=== PATIENT | female | born 1945 | race Asian ===

== ENCOUNTER 2016-05-22 11:31 | Emergency (ER) | payer OTHER ==
[2016-05-22 11:38] VITALS: BMI 19.1
--- NOTE | 2016-05-22 11:54 | PDOC ---
History of Present Illness - General Chief Complaint: Injury Stated Complaint: FALL Time Seen by Provider: 05/22/16 11:41 Past History - Past Medical History Allergies/Adverse Reactions: Allergies Allergy/AdvReac Type Severity Reaction Status Date / Time No Known Allergies Allergy Verified 05/22/16 11:38 Home Medications: Ambulatory Orders Non-Formulary 1 tab PO HS 05/22/16 Oxymetazoline 0.05% Nasal Soln [Afrin -] 1 spray NS BID #1 spraybtl 05/22/16 Hypercholesterolemia: Yes - Surgical History Appendectomy: Yes - Psycho/Social/Smoking Cessation Hx Anxiety: No Suicidal Ideation: No Smoking History: Never smoked Have you smoked in the past 12 months: No Hx Alcohol Use: Yes (SOCIAL) Drug/Substance Use Hx: No Substance Use Type: Alcohol *Physical Exam - Vital Signs Last Vital Signs Temp Pulse Resp BP Pulse Ox 97.8 F 76 20 158/98 98 05/22/16 11:33 05/22/16 11:33 05/22/16 11:33 05/22/16 11:33 05/22/16 11:33 ED Treatment Course - LABORATORY CBC & Chemistry Diagram: 05/22/16 12:43 05/22/16 13:10 Medical Decision Making - Medical Decision Making 05/22/16 11:54 Went to get pt from waiting area and pt while trying to ambulate fell forward but I was able to catch her. Pt was placed int he wheelchair by a bystander and then when questioned how many steps she fell down, she states 12. pt with facial bruising and has complaints of multiple areas of discomfort. Pt will be placed in the Main ED and spoke to CELINA Cronin. *DC/Admit/Observation/Transfer Diagnosis at time of Disposition: Orbital floor (blow-out) closed fracture - Prescriptions Prescriptions: Oxymetazoline 0.05% Nasal Soln [Afrin -] 1 spray NS BID #1 spraybtl - Referrals Referrals: Jose Helm MD [Staff Physician] - Pierre Ch MD [Staff Physician] - Montrell Hinkle MD [Staff Physician] - - Patient Instructions Additional Instructions: You have a right sided orbital fracture. It is important that you do not blow your nose for the next 1-2 weeks. You were prescribed afrin. Use it twice a day (one squirt in each nostril). Dr. Jose Helm is an general operator you can call and Dr. Montrell Hinkle is an ENT doctor. Try and follow up with them this week. Dr. Ch is an orthopedist you can follow up with for your ankle. If you have vision changes, increased ankle pain or headache or cannot move your eye, return to the ED. - Post Discharge Activity Work/School Note: Back to Work
--- NOTE | 2016-05-22 12:38 | PDOC ---
History of Present Illness - General History Source: Patient - History of Present Illness Initial Comments: 05/22/16 13:18 Ms. Lainez is a 71 y/ female with a PMH of hyperlipidemia, and cataracts, presents to the ED today after falling down 12 steps on Monday05/20/16. Pt. states that [place] dark out. She states she missed a step and tumbled down approximately 12 stairs. She did not seek evaluation at that time because she needed to go to work. Pt. denies LOC and dizziness at time of fall. Pt. is now complaining of R sided facial pain, and L ankle pain. Denies chest pain, SOB, neck pain, back pain, N/V/D. Pt. took aspirin yesterday with some relief for her ankle pain. <Suyapa Pradhan - Last Filed: 05/22/16 18:57> <Brijesh Alonzo - Last Filed: 05/24/16 09:41> - General Chief Complaint: Injury Stated Complaint: FALL Time Seen by Provider: 05/22/16 11:41 Past History - Past Medical History Hypercholesterolemia: Yes - Surgical History Appendectomy: Yes - Psycho/Social/Smoking Cessation Hx Anxiety: No Suicidal Ideation: No Smoking History: Never smoked Have you smoked in the past 12 months: No Hx Alcohol Use: Yes (SOCIAL) Drug/Substance Use Hx: No Substance Use Type: Alcohol <Suyapa Pradhan - Last Filed: 05/22/16 18:57> <Brijesh Alonzo - Last Filed: 05/24/16 09:41> - Past Medical History Allergies/Adverse Reactions: Allergies Allergy/AdvReac Type Severity Reaction Status Date / Time No Known Allergies Allergy Verified 05/22/16 11:38 Home Medications: Ambulatory Orders Non-Formulary 1 tab PO HS 05/22/16 Oxymetazoline 0.05% Nasal Soln [Afrin -] 1 spray NS BID #1 spraybtl 05/22/16 *Physical Exam - Vital Signs Last Vital Signs Temp Pulse Resp BP Pulse Ox 97.8 F 76 20 158/98 98 05/22/16 11:33 05/22/16 11:33 05/22/16 11:33 05/22/16 11:33 05/22/16 11:33 - Physical Exam Comments: 05/22/16 13:23 GENERAL: The patient is awake, alert, and fully oriented, in no acute distress. HEAD/Face: Obvious bruising of the R face. (+) raccoon sign over R eye. Ecchimosis of her R jaw noted. No obvious trauma stepoffs or crepitus felt on exam of skull. ENT: Pupils equal, round and reactive to light, extraocular movements intact, sclera anicteric, sub-conjunctival hemorrhage of the right eye . Neck supple. LUNGS: Clear to auscultation bilaterally. Normal excursion. No respiratory distress or use of accessory muscles. CV: RRR, S1/S2, no MRG. Cap refill < 2 sec. ABDOMEN: Soft, non-distended, non-tender. EXTREMITIES: L ankle grossly swollen. Pain on palpation over the 5th metatarsal. Palpated up the LLE with no pain on palpation of the posterior calf. PMS of the L foot intact. Range of motion limited on flexion and extension. Normal range of motion, no edema. NEUROLOGICAL: Normal speech, normal gait. CN II-XII grossly intact. PSYCH: Normal mood, normal affect. SKIN: Warm, dry, normal turgor, no rashes or lesions noted. <Suyapa Pradhan - Last Filed: 05/22/16 18:57> - Vital Signs Last Vital Signs Temp Pulse Resp BP Pulse Ox 97.9 F 79 18 132/86 100 05/22/16 16:01 05/22/16 16:01 05/22/16 16:01 05/22/16 16:01 05/22/16 16:01 <Brijesh Alonzo - Last Filed: 05/24/16 09:41> Procedures - Splinting Splint Location: Left: Ankle Pre-Proc Neuro Vasc Exam: normal Hand-Made Type: orthoglass Splint Type: Yes: Posterior Post-Proc Neuro Vasc Exam: normal Aneul Bandage: 4" Sling: No Complications: No Post splint xray: No <Brijesh Alonzo - Last Filed: 05/24/16 09:41> ED Treatment Course - LABORATORY CBC & Chemistry Diagram: 05/22/16 12:43 05/22/16 13:10 <Suyapa Pradhan - Last Filed: 05/22/16 18:57> - LABORATORY CBC & Chemistry Diagram: 05/22/16 12:43 05/22/16 13:10 - ADDITIONAL ORDERS Additional order review: 05/22/16 12:43 RBC Cancelled MCV Cancelled MCHC Cancelled RDW Cancelled MPV Cancelled Neutrophils % Cancelled Lymphocytes % Cancelled Monocytes % Cancelled Eosinophils % Cancelled Basophils % Cancelled - Medications Given in the ED: ED Medications Discontinued Medications Generic Name Dose Route Start Last Admin Trade Name Cherry PRN Reason Stop Dose Admin Acetaminophen 650 mg 05/22/16 12:42 05/22/16 13:01 Tylenol - PO 05/22/16 12:43 650 mg ONCE ONE Administration <Brijesh Alonzo - Last Filed: 05/24/16 09:41> Medical Decision Making - Medical Decision Making 05/22/16 13:31 Ms. Lainez is a 71 y/o female with PMH of hyperlipidemia, cataracts, presents to the ED s/p mechanical fall 2 days ago. Pt. is complaining of facial pain and L ankle/foot pain at this time. Will order imaging to evaluate injuries 1. CT Scan of head and facial bones to r/o bleed and fractures 2. Xray L foot and ankle to r/o fractures. 3. Tylenol given for pain management Will re-evaluate. 05/22/16 14:36 The language line was contacted to give pt. her results of her imaging. Spoke with sign language interpreter Fahad,#[id number]. CT scans show a R orbital floor fracture. Explained to patient the type of fracture, need to avoid blowing her nose, need to follow up with ophthalmology, ENT, and that she will be prescribed Afrin for nasal decongestion. Also explained was the need to return to the ED if she loses vision, or cannot move her eye up or down. Also explained that she has a L foot sprain. We will be splinting it today for her comfort. Explained the need to rest ice compress and elevate the injury and to keep off of the foot. Applied a posterior U splint for comfort given the amount of edema. PMS intact prior to and after splint placement. CT head showed a meningioma, pt. is aware of this condition and she states she follows up with neurology once a year to monitor the size of the defect. 05/22/16 18:57 <Suyapa Pradhan - Last Filed: 05/22/16 18:57> *DC/Admit/Observation/Transfer - Discharge Dispostion Admit: No <Suyapa Pradhan - Last Filed: 05/22/16 18:57> <Brijesh Alonzo - Last Filed: 05/24/16 09:41> Diagnosis at time of Disposition: Orbital floor (blow-out) closed fracture - Discharge Dispostion Disposition: HOME - Prescriptions Prescriptions: Oxymetazoline 0.05% Nasal Soln [Afrin -] 1 spray NS BID #1 spraybtl - Referrals Referrals: Jose Helm MD [Staff Physician] - Pierre Ch MD [Staff Physician] - Montrell Hinkle MD [Staff Physician] - - Patient Instructions Additional Instructions: You have a right sided orbital fracture. It is important that you do not blow your nose for the next 1-2 weeks. You were prescribed afrin. Use it twice a day (one squirt in each nostril). Dr. Jose Helm is an swine genetics researcher you can call and Dr. Montrell Hinkle is an ENT doctor. Try and follow up with them this week. Dr. Ch is an orthopedist you can follow up with for your ankle. If you have vision changes, increased ankle pain or headache or cannot move your eye, return to the ED. - Post Discharge Activity Work/School Note: Back to Work
[2016-05-22] MEDS ORDERED: ACETAMINOPHEN 325 MG TABLET (FP) PO ONE (12:42)
[2016-05-22] MEDS ORDERED: ACETAMINOPHEN 325 MG TABLET (FP) ONE (12:59)
--- NOTE | 2016-05-22 13:29 | PDOC ---
*Physical Exam - Vital Signs Last Vital Signs Temp Pulse Resp BP Pulse Ox 97.8 F 76 20 158/98 98 05/22/16 11:33 05/22/16 11:33 05/22/16 11:33 05/22/16 11:33 05/22/16 11:33 ED Treatment Course - LABORATORY CBC & Chemistry Diagram: 05/22/16 12:43 05/22/16 13:10 - ADDITIONAL ORDERS Additional order review: 05/22/16 12:43 RBC Cancelled MCV Cancelled MCHC Cancelled RDW Cancelled MPV Cancelled Neutrophils % Cancelled Lymphocytes % Cancelled Monocytes % Cancelled Eosinophils % Cancelled Basophils % Cancelled - Medications Given in the ED: ED Medications Discontinued Medications Generic Name Dose Route Start Last Admin Trade Name Cherry PRN Reason Stop Dose Admin Acetaminophen 650 mg 05/22/16 12:42 05/22/16 13:01 Tylenol - PO 05/22/16 12:43 650 mg ONCE ONE Administration Medical Decision Making - Medical Decision Making 05/22/16 13:25 Pt seen by the Advanced Practice Provider under my direct supervision Pt interviewed and examined Ancillary studies reviewed I agree with plan as outlined by the Advanced Practice Provider ROYAL Pena Vital Signs Temp Pulse Resp BP Pulse Ox 97.8 F 76 20 158/98 98 05/22/16 11:33 05/22/16 11:33 05/22/16 11:33 05/22/16 11:33 05/22/16 11:33 71-year-old female with past medical history hypertension on baby aspirin presents with mechanical fall 3 days ago. Patient had tripped and fell down 12 steps and reported twisting her left ankle and hitting her face. Denies loss of consciousness. Denies headache. Patient was ambulatory but with pain in her left ankle. Since then, the patient was noted to have right raccoon eye, ecchymosis at the right lower jaw and pain of her left ankle left foot. She denies any numbness or weakness. She is neurovascularly intact. She came into the ED for further evaluation. GENERAL: Patient is awake, alert and in no acute distress. Speech is clear and appropriate. HEAD: Atraumatic and nontender. HEENT: Pupils are equal round and reactive to light, extraocular movements are intact. +Right sided subconjunctival hemorrhage. The tympanic membranes are clear, no hemotympanum. No facial deformity. No facial bone tenderness or step-off. No nasal septal hematoma. The oropharynx is clear. +Right sided raccoon eye. R mandibular ~3x3 cm ecchymosis. NECK: The trachea is midline, there is no stridor. There is no midline cervical spine tenderness, full range of motion of neck. CHEST: Non-tender, no ecchymosis or abrasions. Equal chest wall expansion bilaterally. No flail segments. Lungs are clear to auscultation bilaterally. CARDIOVASCULAR: S1-S2, regular rate and rhythm. No murmurs or rubs. ABDOMEN: Soft, nontender, nondistended. Bowel sounds are normoactive. There is no abdominal or flank ecchymosis. BACK/PELVIS: There is no midline thoracic or lumbosacral spine tenderness or step-off. Pelvis is stable and nontender. EXTREMITIES: Left lower extremity 2+ DP pulse. Sensation intact throghout. TTP medial and lateral malleolus. No tenderness appreciated in the proximal or mid tib/fib. Swelling and edema appreciated. TTP left 5th metatarsal. 2+ distal pulses throughout. NEURO: Alert and oriented x3. Cranial nerves II through XII are intact. 5 out of 5 motor strength x4 extremities. No gross sensory deficits. Finger-nose- finger is intact. No pronator drift. Gait is stable. SKIN: No abrasions, hematomas, lacerations. PSYCH: Affect is appropriate We'll need to obtain a left ankle and left foot x-ray. We'll obtain a CAT scan of the head and facial bones. Patient is cleared from a NEXUS perspective for cervical spine. Imaging and reassess. 05/22/16 15:14 CAT scan the head and facial bone. Incidental meningioma noted. This was discussed with a phone bindery leadperson and the patient reports that she has a known history of this and is following up with a neurologist. Ankle and foot x-ray reviewed with no acute findings. However, given the edema and the pain, I suspect that she is high degree sprain. Patient was placed in a posterior U- splint and made nonweightbearing. We will see if she can ambulate with crutches without difficulty. If so, we'll discharge with orthopedics follow-up. Patient is noted to have an orbital floor fracture of the right side. Give Afrin and nasal decongestion. We'll have her follow-up with ophthalmology and ENT. *DC/Admit/Observation/Transfer Diagnosis at time of Disposition: Orbital floor (blow-out) closed fracture - Discharge Dispostion Disposition: HOME - Prescriptions Prescriptions: Oxymetazoline 0.05% Nasal Soln [Afrin -] 1 spray NS BID #1 spraybtl - Referrals Referrals: Jose Helm MD [Staff Physician] - Pierre Ch MD [Staff Physician] - Montrell Hinkle MD [Staff Physician] - - Patient Instructions Additional Instructions: You have a right sided orbital fracture. It is important that you do not blow your nose for the next 1-2 weeks. You were prescribed afrin. Use it twice a day (one squirt in each nostril). Dr. Jose Helm is an webmethods architect you can call and Dr. Montrell Hinkle is an ENT doctor. Try and follow up with them this week. Dr. Ch is an orthopedist you can follow up with for your ankle. If you have vision changes, increased ankle pain or headache or cannot move your eye, return to the ED. - Post Discharge Activity Work/School Note: Back to Work
[2016-05-22 14:09] LABS: ALBUMIN 3.5 g/dl (3.4-5.0); ALK PHOS 48 U/L (45-117); ANION GAP 11 (8-16); BILIRUBIN,TOTAL 0.7 mg/dL (0.2-1.0); CALCIUM 8.2 mg/dL (8.5-10.1); CO2 24 mmol/L (21-32); CREATININE 0.6 mg/dL (0.55-1.02); GLUCOSE,RANDOM 87 mg/dL (74-106); SGOT/AST 28 U/L (15-37); SGPT/ALT 17 U/L (12-78); TOT PROT 6.4 g/dl (6.4-8.2)
[2016-05-22 16:03] VITALS: BP 132/86; PULSE 79; TEMP 97.9
== END 2016-05-22 16:03 | disposition home or self-care (01) ==
LOC: JERFT 11:31 → JER 11:31
PROC: 2W3MX1Z Immobilization of Left Lower Extremity using Splint (ICD-10-PCS; principal; 2016-05-22)
DX: S02.31XA Fracture of orbital floor, right side, initial encounter for closed fracture (principal); S93.402A Sprain of unspecified ligament of left ankle, initial encounter; W10.8XXA Fall (on) (from) other stairs and steps, initial encounter; Y93.89 Activity, other specified; Y92.522 Railway station as the place of occurrence of the external cause; Y99.8 Other external cause status; I10 Essential (primary) hypertension; E78.00 Pure hypercholesterolemia, unspecified
CPT/HCPCS: 29515; 36415; 70450-TC; 70486-TC; 73110-TC-RT; 73130-TC-RT; 73610-TC-LT; 73630-TC-LT; 80053; 99284-25

== ENCOUNTER 2016-08-11 11:37 | Emergency (ER) | payer OTHER ==
[2016-08-11 11:59] VITALS: BP 158/95; PULSE 72; TEMP 98.1; BMI 18.7
--- NOTE | 2016-08-11 13:43 | PDOC ---
History of Present Illness - General Chief Complaint: Bite Stated Complaint: TICK BITE Time Seen by Provider: 08/11/16 13:33 History Source: Patient Exam Limitations: No Limitations - History of Present Illness Initial Comments: 08/11/16 13:40 71 yr female with c/o finding a tick crawling on her buttock. the tick is alive and did not bite the pt. Pt brought tick with her. 08/11/16 16:02 Past History - Past Medical History Allergies/Adverse Reactions: Allergies Allergy/AdvReac Type Severity Reaction Status Date / Time No Known Allergies Allergy Verified 08/11/16 11:56 Home Medications: Ambulatory Orders Non-Formulary 1 tab PO HS 05/22/16 Oxymetazoline 0.05% Nasal Soln [Afrin -] 1 spray NS BID #1 spraybtl 05/22/16 Hypercholesterolemia: Yes - Surgical History Appendectomy: Yes - Psycho/Social/Smoking Cessation Hx Anxiety: No Suicidal Ideation: No Smoking History: Never smoked Have you smoked in the past 12 months: No Hx Alcohol Use: Yes (SOCIAL) Drug/Substance Use Hx: No Substance Use Type: Alcohol Review of Systems - Review of Systems Able to Perform ROS?: Yes Is the patient limited Wallisian proficient: No Constitutional: No: Symptoms Reported HEENTM: No: Symptoms Reported Respiratory: No: Symptoms reported Cardiac (ROS): No: Symptoms Reported ABD/GI: No: Symptoms Reported : No: Symptoms Reported Musculoskeletal: No: Symptoms Reported Integumentary: No: Symptoms Reported Neurological: No: Symptoms reported *Physical Exam - Vital Signs Last Vital Signs Temp Pulse Resp BP Pulse Ox 98.1 F 72 17 158/95 98 08/11/16 11:56 08/11/16 11:56 08/11/16 11:56 08/11/16 11:56 08/11/16 11:56 - Physical Exam General Appearance: Yes: Nourished, Appropriately Dressed HEENT: positive: EOMI, REE Neck: positive: Supple. negative: Tender Respiratory/Chest: positive: Lungs Clear, Normal Breath Sounds Cardiovascular: positive: Regular Rhythm, Regular Rate Gastrointestinal/Abdominal: positive: Normal Bowel Sounds, Soft Musculoskeletal: positive: Normal Inspection Extremity: positive: Normal Capillary Refill, Normal Inspection, Normal Range of Motion Integumentary: positive: Normal Color, Dry, Warm Neurologic: positive: Fully Oriented, Alert, Normal Mood/Affect, Normal Response , Motor Strength 5 Medical Decision Making - Medical Decision Making 08/11/16 16:02 cc: found a tick on her backside tick was not stuck in the skin, tick did not bite the pt tick is alive pt brought in in a plastic bag. pt has no other complaints *DC/Admit/Observation/Transfer Diagnosis at time of Disposition: Worried well - Discharge Dispostion Disposition: HOME Condition at time of disposition: Good - Patient Instructions Additional Instructions: there is no treatment that is indicated today always make sure you wear long sleeves and long pants use DEET bug repellant
== END 2016-08-11 13:45 | disposition home or self-care (01) ==
LOC: JERFT 11:37
DX: Z71.1 Person with feared health complaint in whom no diagnosis is made (principal); E78.00 Pure hypercholesterolemia, unspecified
CPT/HCPCS: 99281-25

== ENCOUNTER 2019-03-09 14:43 | Inpatient (IN) | payer OTHER ==
--- NOTE | 2019-03-09 15:15 | PDOC ---
History of Present Illness - General Chief Complaint: Pain Stated Complaint: ABD PAIN/COUGHING/VOMITING Time Seen by Provider: 03/09/19 15:14 - History of Present Illness Initial Comments: 03/09/19 15:14 Ms. Lainez is a 73 yo female w/ no pertinent pmh who presents for evaluation of 1 day history of RLQ abdominal pain w/ associated nausea and vomiting (4x, bilious, non-bloody). Patient reports she had an appendectomy 20 years ago however denies any other symptoms. Denies fever, endorses non-specific chills as well. The patient denies chest pain, shortness of breath, headache and dizziness. Denies fever, diarrhea and constipation. Denies dysuria, frequency, urgency and hematuria. Past History - Past Medical History Allergies/Adverse Reactions: Allergies Allergy/AdvReac Type Severity Reaction Status Date / Time No Known Allergies Allergy Verified 03/09/19 14:50 Home Medications: Ambulatory Orders Non-Formulary 1 tab PO HS 05/22/16 Oxymetazoline 0.05% Nasal Soln [Afrin -] 1 spray NS BID #1 spraybtl 05/22/16 COPD: No Hypercholesterolemia: Yes - Surgical History Appendectomy: Yes - Psycho Social/Smoking Cessation Hx Smoking History: Never smoked Have you smoked in the past 12 months: No Hx Alcohol Use: Yes (SOCIAL) Drug/Substance Use Hx: No Substance Use Type: Alcohol Review of Systems - Review of Systems Comments:: 03/09/19 15:15 GENERAL/CONSTITUTIONAL: +Chills as described. No fever. No weakness. HEAD, EYES, EARS, NOSE AND THROAT: No change in vision. No ear pain or discharge. No sore throat. CARDIOVASCULAR: No chest pain or shortness of breath RESPIRATORY: No cough, wheezing, or hemoptysis. GASTROINTESTINAL: +4x N/V as described w/ reported RLQ abdominal pain. No diarrhea or constipation. GENITOURINARY: No dysuria, frequency, or change in urination. MUSCULOSKELETAL: No joint or muscle swelling or pain. No neck or back pain. SKIN: No rash NEUROLOGIC: No headache, vertigo, loss of consciousness, or change in strength/ sensation. ENDOCRINE: No increased thirst. No abnormal weight change HEMATOLOGIC/LYMPHATIC: No anemia, easy bleeding, or history of blood clots. ALLERGIC/IMMUNOLOGIC: No hives or skin allergy. *Physical Exam - Vital Signs Last Vital Signs Temp Pulse Resp BP Pulse Ox 98 F 92 H 18 91/54 L 100 03/09/19 14:47 03/09/19 14:47 03/09/19 14:47 03/09/19 14:47 03/09/19 14:47 - Physical Exam Comments: 03/09/19 15:15 GENERAL: Awake, alert, and fully oriented, in no acute distress HEAD: No signs of trauma, normocephalic, atraumatic EYES: PERRLA, EOMI, sclera anicteric, conjunctiva clear ENT: Auricles normal inspection, hearing grossly normal, nares patent, oropharynx clear without exudates. Moist mucosa NECK: Normal ROM, supple, no lymphadenopathy, JVD, or masses LUNGS: No distress, speaks full sentences, clear to auscultation bilaterally HEART: Regular rate and rhythm, normal S1 and S2, no murmurs, rubs or gallops, peripheral pulses normal and equal bilaterally. ABDOMEN: +RUQ TTP. Soft, normoactive bowel sounds. No guarding, no rebound. No masses EXTREMITIES: Normal inspection, Normal range of motion, no edema. No clubbing or cyanosis. NEUROLOGICAL: Cranial nerves II through XII grossly intact. Normal speech, normal gait, no focal sensorimotor deficits SKIN: Warm, Dry, normal turgor, no rashes or lesions noted. ED Treatment Course - LABORATORY CBC & Chemistry Diagram: 03/09/19 16:25 03/09/19 16:25 Medical Decision Making - Medical Decision Making 03/09/19 15:40 Ms. Lainez is a 73 yo female w/ no significant pmh who presents for evaluation of symptoms concerning for cholecystitis vs. SBO vs. other infection. Patient will be evaluated w/ imaging and labs for further dispo. 03/09/19 16:16 Upon repeat evaluation patient noted to be less interactive. Patient evaluated with bedside US and found to have concern for cholelithiasis at GB neck w/out acute infection. Aorta narrow w/out signs of aneurysm. Septic order set started and 18G placed in R arm. Patient receiving sepsis fluids. 03/09/19 17:58 Patient BP improved with sepsis fluids. Empiric antibiotics ordered given patients change of status. Abdominal US ordered for further evaluation. 03/09/19 18:26 No specific findings noted on US. CTAP ordered for further evaluation. Patient creatinine noted to be elevated as below however given urgency decision made to use IV contrast for increased visibility. Patient has also received several liters of fluid for kidney protection. EKG normal sinus. 03/09/19 18:47 Patient signed out to Dr. Mcrae for further evaluation. Discharge - Discharge Information Problems reviewed: Yes Clinical Impression/Diagnosis: Abdominal pain Qualifiers: Abdominal location: right upper quadrant Qualified Code(s): R10.11 - Right upper quadrant pain Sepsis Qualifiers: Sepsis type: sepsis due to unspecified organism Sepsis acute organ dysfunction status: unspecified Qualified Code(s): A41.9 - Sepsis, unspecified organism - Admission Yes - Follow up/Referral - Patient Discharge Instructions - Post Discharge Activity
[2019-03-09] MEDS ORDERED: SODIUM CHLORIDE 1,701 ML IV ONE (16:06)
[2019-03-09 16:30] LABS: VENOUS PC02 43.2 mmHg (38-52); VENOUS PH 7.38 (7.31-7.41)
[2019-03-09 16:32] LABS: VENOUS PO2 < 49 mmHg (28-48)
[2019-03-09 16:34] LABS: BASO % 0.1 % (0-2.0); HEMATOCRIT 38.3 % (32.4-45.2); LYMPH % 2.3 % (8-40); MCH 32.7 pg (25.7-33.7); MEAN CELL VOLUME 96.2 fl (80-96); MEAN PLT VOLUME 7.8 fl (7.5-11.1); MONO % 1.1 % (3.8-10.2); NEUT % 96.5 % (42.8-82.8); PLATELET COUNT 147 K/MM3 (134-434); RBC 3.98 M/mm3 (3.60-5.2); RDW 12.4 % (11.6-15.6); WHITE BLOOD COUNT 18.2 K/mm3 (4.0-10.0)
[2019-03-09 16:46] LABS: INR 1.3 (0.83-1.09); PROTHROMBIN TIME (PATIENT) 15.4 SEC (9.7-13.0)
[2019-03-09 16:49] LABS: ACTIVATED PTT 31.7 SECONDS (25.2-36.5)
[2019-03-09] MEDS ORDERED: PIPERACILLIN/TAZOB 4.5 GM 4.5 GM in DEXTROSE 5%-WATER - 100 ML IVPB ONE (16:51)
[2019-03-09] MEDS ORDERED: VANCOMYCIN 1,000 MG in DEXTROSE 5%-WATER - 250 ML IVPB ONE (16:51)
--- NOTE | 2019-03-09 16:53 | PDOC ---
Documentation entered by Siri Nazario SCRIBE, acting as scribe for Candace Lima MD. Candace Lima MD: This documentation has been prepared by the Mansi amado Adrianna, SCRIBE, under my direction and personally reviewed by me in its entirety. I confirm that the documentation accurately reflects all work, treatment, procedures, and medical decision making performed by me. Attending Attestation - Resident Resident Name: JessiDiaz - ED Attending Attestation I have performed the following: I have examined & evaluated the patient, The case was reviewed & discussed with the resident, I agree w/resident's findings & plan, Exceptions are as noted - HPI HPI: The patient is a 73 year old female, with a significant PMH of HLD and cataracts (not on any daily meds as she has not seen a PMD in 3 years), who presents to the ED for evaluation of abdominal pain for one day. Patient endorses sharp, 8/10, RUQ abdominal pain a/w nausea and 4 episodes of non- bilious, non-bloody vomit. Pt reports similar pain over the last few weeks but much less severe in nature. She has not noticed pain is worse post-prandially. Patient had an appendectomy in the past as well as an ovarian cyst removal on the right. No other surgeries. Denies associated f/c, dysuria, hematuria, frequency, urgency, diarrhea, or constipation. She reports associated chills, but otherwise denies any acute complaints. Denies headache, dizziness, focal weakness/numbness, chest pain, SOB, LE edema. Allergies: NKA, NKDA Surgical History: Appendectomy Social History: Social EtOH use. Denies tobacco or illicit drug use - Physicial Exam PE: GENERAL: Awake, lethargic but arousable and fully oriented, in no acute distress HEAD: No signs of trauma EYES: PERRLA, EOMI, sclera anicteric, conjunctiva clear ENT: Auricles normal inspection, hearing grossly normal, nares patent, oropharynx clear without exudates. Moist mucosa NECK: Normal ROM, supple, no lymphadenopathy, JVD, or masses LUNGS: Breath sounds equal, clear to auscultation bilaterally. No wheezes, and no crackles HEART: Regular rate and rhythm, normal S1 and S2, no murmurs, rubs or gallops ABDOMEN: Soft, +hidalgo's sign, normoactive bowel sounds. No guarding, no rebound. No masses. No CVAT. EXTREMITIES: Normal range of motion, no edema. No cords, erythema, or tenderness. WWP BACK: No midline spinal tenderness in cervical/thoracic/lumbar region NEUROLOGICAL: Normal speech, cranial nerves intact, 5/5 strength in all 4 extremities, normal sensation to light touch in all 4 extremities, normal cerebellar exam, normal gait, normal tone SKIN: Warm, Dry, normal turgor, no rashes or lesions noted. - Medical Decision Making 03/09/19 15:56 73-year-old female denies significant past medical history, PSH of appendicitis and R oopherectomy presents to the emergency department with 1 day of right upper quadrant pain associated with multiple episodes of nonbloody nonbilious emesis. Initial vitals remarkable for borderline hypotension, otherwise within normal limits. Exam remarkable for positive Hidalgo sign, and mild CVA tenderness. Differential includes cholecystitis versus pyelonephritis versus renal colic vs pancreatitis. Plan: -labs -US -IVF 30 cc/kg -pain control -reassess 03/09/19 17:00 On reevaluation, patient now is having rigors, tachycardic to 120s, and has a rectal temp of 100.6. Thus far, labs with leukocytosis of 18. Patient has been covered empirically with Zosyn and vancomycin. She has been given IV Tylenol for fever. Her 30 cc/kg fluid bolus is ongoing at this time. Remaining labs are pending. Impression is presumed sepsis, broad infectious w/ u in progress. Case has been signed out to Dr. Sanders for further management.
[2019-03-09] MEDS ORDERED: PIPERACILLIN/TAZOB 4.5 GM 4.5 GM/100 ML BAG IVPB ONE (16:55)
[2019-03-09] MEDS ORDERED: ACETAMINOPHEN INJECTION 100 ML IVPB ONE (16:55)
[2019-03-09] MEDS ORDERED: VANCOMYCIN 1 GRAM (PRE-DOCKED) 1,000 MG/250 ML BAG IVPB ONE (16:55)
[2019-03-09] MEDS ORDERED: ACETAMINOPHEN 1000 MG/100 ML VIAL (NON FORMULARY) IVPB ONE (16:59)
[2019-03-09 17:02] LABS: ALBUMIN 3.4 g/dl (3.4-5.0); BILIRUBIN,TOTAL 0.7 mg/dL (0.2-1); BLOOD UREA NITROGEN 35.9 mg/dL (7-18); CALCIUM 8.1 mg/dL (8.5-10.1); CREATININE 1.6 mg/dL (0.55-1.3); POTASSIUM 3.2 mmol/L (3.5-5.1); TOT PROT 6.5 g/dl (6.4-8.2)
[2019-03-09 17:51] LABS: MACROCYTOSIS 1+; PLATELET ESTIMATE DECREASED
[2019-03-09] MEDS ORDERED: SODIUM CHLORIDE 1,000 ML IV STA (18:32)
[2019-03-09 18:50] LABS: EPI CELLS 1.7 /HPF (0-5/HPF); HYALINE CASTS 9 /lpf (0-8); URINE APPEARANCE CLOUDY; URINE BILIRUBIN NEGATIVE (NEGATIVE); URINE COLOR YELLOW; URINE GLUCOSE (UA) NEGATIVE (NEGATIVE); URINE KETONE TRACE (NEGATIVE); URINE LEUK ESTERASE TRACE (NEGATIVE); URINE NITRITE NEGATIVE (NEGATIVE); URINE PROTEIN 1+ (NEGATIVE); URINE RBC 3 /hpf (0-4); URINE UROBILINOGEN 0.2 mg/dL (0.2-1.0); URINE WBC 5 /hpf (0-5)
[2019-03-09 19:04] LABS: URINE BACTERIA POSITIVE /hpf (NEGATIVE)
[2019-03-09] MEDS ORDERED: SODIUM CHLORIDE 0.9% 500 ML INFUS.BAG IV ONE (19:50)
--- NOTE | 2019-03-09 19:52 | PDOC ---
*Physical Exam - Vital Signs Last Vital Signs Temp Pulse Resp BP Pulse Ox 98.7 F 97 H 18 121/67 94 L 03/09/19 18:00 03/09/19 18:00 03/09/19 18:00 03/09/19 18:00 03/09/19 18:00 ED Treatment Course - LABORATORY CBC & Chemistry Diagram: 03/09/19 16:25 03/09/19 16:25 - ADDITIONAL ORDERS Additional order review: Laboratory Results 03/09/19 03/09/19 03/09/19 18:07 16:25 16:25 PT with INR INR PTT (Actin FS) VBG pH 7.38 POC VBG pCO2 43.2 POC VBG pO2 < 49 H VBG HCO3 24.9 VBG O2 Sat (Leonid) 34.1 L VBG Base Excess 0.2 Sodium Potassium Chloride Carbon Dioxide Anion Gap BUN Creatinine Est GFR (CKD-EPI)AfAm Est GFR (CKD-EPI)NonAf Random Glucose Lactic Acid 4.3 H* Calcium Magnesium Total Bilirubin AST ALT Alkaline Phosphatase Troponin I Total Protein Albumin Lipase Urine Color Urine Appearance Urine pH Ur Specific [place] Urine Protein Urine Glucose (UA) Urine Ketones Urine Blood Urine Nitrite Urine Bilirubin Urine Urobilinogen Ur Leukocyte Esterase Urine WBC (Auto) Urine RBC (Auto) Urine Casts (Auto) U Epithel Cells (Auto) Urine Bacteria (Auto) Blood Type A POSITIVE Antibody Screen Positive 03/09/19 03/09/19 03/09/19 16:25 16:25 16:25 PT with INR INR PTT (Actin FS) VBG pH POC VBG pCO2 POC VBG pO2 VBG HCO3 VBG O2 Sat (Leonid) VBG Base Excess Sodium 137 Potassium 3.2 L Chloride 100 Carbon Dioxide 26 Anion Gap 11 BUN 35.9 H Creatinine 1.6 H Est GFR (CKD-EPI)AfAm 36.41 Est GFR (CKD-EPI)NonAf 31.42 Random Glucose 117 H Lactic Acid Calcium 8.1 L Magnesium 1.8 Total Bilirubin 0.7 AST 26 ALT 16 Alkaline Phosphatase 64 Troponin I 0.02 Total Protein 6.5 Albumin 3.4 Lipase 45 L Urine Color Urine Appearance Urine pH Ur Specific [place] Urine Protein Urine Glucose (UA) Urine Ketones Urine Blood Urine Nitrite Urine Bilirubin Urine Urobilinogen Ur Leukocyte Esterase Urine WBC (Auto) Urine RBC (Auto) Urine Casts (Auto) U Epithel Cells (Auto) Urine Bacteria (Auto) Blood Type Antibody Screen 03/09/19 03/09/19 03/09/19 16:25 16:10 16:10 PT with INR 15.40 H INR 1.30 H PTT (Actin FS) Cancelled 31.7 VBG pH POC VBG pCO2 POC VBG pO2 VBG HCO3 VBG O2 Sat (Leonid) VBG Base Excess Sodium Potassium Chloride Carbon Dioxide Anion Gap BUN Creatinine Est GFR (CKD-EPI)AfAm Est GFR (CKD-EPI)NonAf Random Glucose Lactic Acid Calcium Magnesium Total Bilirubin AST ALT Alkaline Phosphatase Troponin I Total Protein Albumin Lipase Urine Color Yellow Urine Appearance Cloudy Urine pH 5.0 Ur Specific [place] 1.017 Urine Protein 1+ H Urine Glucose (UA) Negative Urine Ketones Trace H Urine Blood 3+ H Urine Nitrite Negative Urine Bilirubin Negative Urine Urobilinogen 0.2 Ur Leukocyte Esterase Trace Urine WBC (Auto) 5 Urine RBC (Auto) 3 Urine Casts (Auto) 9 U Epithel Cells (Auto) 1.7 Urine Bacteria (Auto) Positive Blood Type Antibody Screen 03/09/19 16:10 PT with INR INR PTT (Actin FS) VBG pH POC VBG pCO2 POC VBG pO2 VBG HCO3 VBG O2 Sat (Leonid) VBG Base Excess Sodium Potassium Chloride Carbon Dioxide Anion Gap BUN Creatinine Est GFR (CKD-EPI)AfAm Est GFR (CKD-EPI)NonAf Random Glucose Lactic Acid 2.8 H* Calcium Magnesium Total Bilirubin AST ALT Alkaline Phosphatase Troponin I Total Protein Albumin Lipase Urine Color Urine Appearance Urine pH Ur Specific [place] Urine Protein Urine Glucose (UA) Urine Ketones Urine Blood Urine Nitrite Urine Bilirubin Urine Urobilinogen Ur Leukocyte Esterase Urine WBC (Auto) Urine RBC (Auto) Urine Casts (Auto) U Epithel Cells (Auto) Urine Bacteria (Auto) Blood Type Antibody Screen 03/09/19 16:25 RBC 3.98 MCV 96.2 H MCHC 34.0 RDW 12.4 MPV 7.8 Neutrophils % 96.5 H Lymphocytes % 2.3 L Monocytes % 1.1 L Eosinophils % 0.0 Basophils % 0.1 - RADIOLOGY Radiograph Interpretation: THIS IS A PRELIMINARY REPORT FROM [facility] [employer] [employer] [facility] EXAM: CT abdomen and pelvis with contrast DATE OF EXAM: 2019-03-09 19:34:22 Findings: Scarring and moderate atelectasis in lung bases. No pleural effusions. Right hepatic calcification. Heterogeneous liver enhancement. Gallbladder, pancreas, adrenal glands, and spleen are grossly unremarkable. *Mild right hydronephrosis due to a 3 mm calculus at or just beyond the right ureterovesical junction. Additional tiny right intrarenal calculus. No AAA. No evidence for diverticulitis, small bowel obstruction, free fluid, or free air. Appendix not seen with certainty. No secondary signs of appendicitis. Mild leiomyomatous uterus. 03/09/19 20:51 - Medications Given in the ED: ED Medications Discontinued Medications Generic Name Dose Route Start Last Admin Trade Name Freq PRN Reason Stop Dose Admin Acetaminophen 1,000 mg 03/09/19 16:59 03/09/19 17:29 Ofirmev Injection - IVPB 03/09/19 17:00 1,000 mg ONCE ONE Administration Sodium Chloride 1,701 mls @ 850.5 mls/hr 03/09/19 16:06 03/09/19 16:38 Normal Saline - 30 ml/kg infuse over 2 hr (1701 ml) 03/09/19 18:05 850.5 mls/hr IV Administration ONCE ONE Vancomycin HCl 1,000 mg/ 250 mls @ 250 mls/hr 03/09/19 16:51 03/09/19 17:29 Dextrose IVPB 03/09/19 17:50 250 mls/hr ONCE ONE Administration Protocol Piperacillin Sod/Tazobactam 100 mls @ 200 mls/hr 03/09/19 16:51 03/09/19 17: 29 Sod 4.5 gm/ Dextrose IVPB 03/09/19 17:20 200 mls/hr ONCE ONE Administration Protocol Sodium Chloride 1,000 mls @ 1,000 mls/hr 03/09/19 18:32 03/09/19 18:36 Normal Saline - IV 03/09/19 19:31 1,000 mls/hr ASDIR STA Administration Medical Decision Making - Medical Decision Making Pt received as sign out w/ abdominal pain, leukocytosis, and reassuring US Pt pending CT A&P Lactate rising, will give additional 1L NS 03/09/19 19:51 CT A&P significant for mild right hydronephrosis 2/2 3 mm calculus at or just beyond the right ureterovesical junction. Pt w/ sepsis 2/2 infected stone S/p initial Vanc/Zosyn Pt signed out to [facility] Admitting Case discussed with Dr. Pfeiffer, will consult IR for nephrostomy tube 03/09/19 20:52 Case discussed with Urology and IR, plan is for ureteral stent placement Pt made NPO Continue IVF Symphode Admitting updated 03/09/19 21:56 Discharge - Discharge Information Problems reviewed: Yes Clinical Impression/Diagnosis: Nephrolithiasis Abdominal pain Qualifiers: Abdominal location: right upper quadrant Qualified Code(s): R10.11 - Right upper quadrant pain Sepsis Qualifiers: Sepsis type: sepsis due to unspecified organism Sepsis acute organ dysfunction status: unspecified Qualified Code(s): A41.9 - Sepsis, unspecified organism Condition: Guarded - Admission Yes - Follow up/Referral - Patient Discharge Instructions - Post Discharge Activity
--- NOTE | 2019-03-09 20:56 | PN ---
Progress Note (short form) - Note Progress Note: Call about the 73-year-old female with an obstructing 3 mm ureteral stone hydronephrosis and appears to be septic. She has an elevated white blood cell count and 16% bands. she has tachycardia and a low blood pressure. Immediate percutaneous nephrostomy decompression is recommended. Phylicia asked for intervention radiology consult immediately broad-spectrum antibiotics, intravenous fluid support, and a monitored setting is required.
--- NOTE | 2019-03-09 21:41 | PDOC ---
*Physical Exam - Vital Signs Last Vital Signs Temp Pulse Resp BP Pulse Ox 97.5 F L 94 H 22 H 89/60 L 97 03/09/19 20:49 03/09/19 20:49 03/09/19 20:49 03/09/19 20:49 03/09/19 20:49 - Physical Exam Gastrointestinal/Abdominal: positive: Other (Right flank and right sided mid abdominal tenderness to palpation) ED Treatment Course - LABORATORY CBC & Chemistry Diagram: 03/10/19 16:20 03/10/19 16:20 - ADDITIONAL ORDERS Additional order review: Laboratory Results 03/09/19 03/09/19 03/09/19 18:07 16:25 16:25 PT with INR INR PTT (Actin FS) VBG pH 7.38 POC VBG pCO2 43.2 POC VBG pO2 < 49 H VBG HCO3 24.9 VBG O2 Sat (Leonid) 34.1 L VBG Base Excess 0.2 Sodium Potassium Chloride Carbon Dioxide Anion Gap BUN Creatinine Est GFR (CKD-EPI)AfAm Est GFR (CKD-EPI)NonAf Random Glucose Lactic Acid 4.3 H* Calcium Magnesium Total Bilirubin AST ALT Alkaline Phosphatase Troponin I Total Protein Albumin Lipase Urine Color Urine Appearance Urine pH Ur Specific [place] Urine Protein Urine Glucose (UA) Urine Ketones Urine Blood Urine Nitrite Urine Bilirubin Urine Urobilinogen Ur Leukocyte Esterase Urine WBC (Auto) Urine RBC (Auto) Urine Casts (Auto) U Epithel Cells (Auto) Urine Bacteria (Auto) Blood Type A POSITIVE Antibody Screen Positive Prewarmed Antibody Srcn Negative Antibody Identification Cold agg Antigen Identification A1 ANTIGEN - POSITIVE 03/09/19 03/09/19 03/09/19 16:25 16:25 16:25 PT with INR INR PTT (Actin FS) VBG pH POC VBG pCO2 POC VBG pO2 VBG HCO3 VBG O2 Sat (Leonid) VBG Base Excess Sodium 137 Potassium 3.2 L Chloride 100 Carbon Dioxide 26 Anion Gap 11 BUN 35.9 H Creatinine 1.6 H Est GFR (CKD-EPI)AfAm 36.41 Est GFR (CKD-EPI)NonAf 31.42 Random Glucose 117 H Lactic Acid Calcium 8.1 L Magnesium 1.8 Total Bilirubin 0.7 AST 26 ALT 16 Alkaline Phosphatase 64 Troponin I 0.02 Total Protein 6.5 Albumin 3.4 Lipase 45 L Urine Color Urine Appearance Urine pH Ur Specific [place] Urine Protein Urine Glucose (UA) Urine Ketones Urine Blood Urine Nitrite Urine Bilirubin Urine Urobilinogen Ur Leukocyte Esterase Urine WBC (Auto) Urine RBC (Auto) Urine Casts (Auto) U Epithel Cells (Auto) Urine Bacteria (Auto) Blood Type Antibody Screen Prewarmed Antibody Srcn Antibody Identification Antigen Identification 03/09/19 03/09/19 03/09/19 16:25 16:10 16:10 PT with INR 15.40 H INR 1.30 H PTT (Actin FS) Cancelled 31.7 VBG pH POC VBG pCO2 POC VBG pO2 VBG HCO3 VBG O2 Sat (Leonid) VBG Base Excess Sodium Potassium Chloride Carbon Dioxide Anion Gap BUN Creatinine Est GFR (CKD-EPI)AfAm Est GFR (CKD-EPI)NonAf Random Glucose Lactic Acid Calcium Magnesium Total Bilirubin AST ALT Alkaline Phosphatase Troponin I Total Protein Albumin Lipase Urine Color Yellow Urine Appearance Cloudy Urine pH 5.0 Ur Specific [place] 1.017 Urine Protein 1+ H Urine Glucose (UA) Negative Urine Ketones Trace H Urine Blood 3+ H Urine Nitrite Negative Urine Bilirubin Negative Urine Urobilinogen 0.2 Ur Leukocyte Esterase Trace Urine WBC (Auto) 5 Urine RBC (Auto) 3 Urine Casts (Auto) 9 U Epithel Cells (Auto) 1.7 Urine Bacteria (Auto) Positive Blood Type Antibody Screen Prewarmed Antibody Srcn Antibody Identification Antigen Identification 03/09/19 16:10 PT with INR INR PTT (Actin FS) VBG pH POC VBG pCO2 POC VBG pO2 VBG HCO3 VBG O2 Sat (Leonid) VBG Base Excess Sodium Potassium Chloride Carbon Dioxide Anion Gap BUN Creatinine Est GFR (CKD-EPI)AfAm Est GFR (CKD-EPI)NonAf Random Glucose Lactic Acid 2.8 H* Calcium Magnesium Total Bilirubin AST ALT Alkaline Phosphatase Troponin I Total Protein Albumin Lipase Urine Color Urine Appearance Urine pH Ur Specific [place] Urine Protein Urine Glucose (UA) Urine Ketones Urine Blood Urine Nitrite Urine Bilirubin Urine Urobilinogen Ur Leukocyte Esterase Urine WBC (Auto) Urine RBC (Auto) Urine Casts (Auto) U Epithel Cells (Auto) Urine Bacteria (Auto) Blood Type Antibody Screen Prewarmed Antibody Srcn Antibody Identification Antigen Identification 03/09/19 16:25 RBC 3.98 MCV 96.2 H MCHC 34.0 RDW 12.4 MPV 7.8 Neutrophils % 96.5 H Lymphocytes % 2.3 L Monocytes % 1.1 L Eosinophils % 0.0 Basophils % 0.1 - Medications Given in the ED: ED Medications Discontinued Medications Generic Name Dose Route Start Last Admin Trade Name Cherry PRN Reason Stop Dose Admin Acetaminophen 1,000 mg 03/09/19 16:59 03/09/19 17:29 Ofirmev Injection - IVPB 03/09/19 17:00 1,000 mg ONCE ONE Administration Sodium Chloride 1,701 mls @ 850.5 mls/hr 03/09/19 16:06 03/09/19 16:38 Normal Saline - 30 ml/kg infuse over 2 hr (1701 ml) 03/09/19 18:05 850.5 mls/hr IV Administration ONCE ONE Vancomycin HCl 1,000 mg/ 250 mls @ 250 mls/hr 03/09/19 16:51 03/09/19 17:29 Dextrose IVPB 03/09/19 17:50 250 mls/hr ONCE ONE Administration Protocol Piperacillin Sod/Tazobactam 100 mls @ 200 mls/hr 03/09/19 16:51 03/09/19 17: 29 Sod 4.5 gm/ Dextrose IVPB 03/09/19 17:20 200 mls/hr ONCE ONE Administration Protocol Sodium Chloride 1,000 mls @ 1,000 mls/hr 03/09/19 18:32 03/09/19 18:36 Normal Saline - IV 03/09/19 19:31 1,000 mls/hr ASDIR STA Administration Sodium Chloride 1,000 ml 03/09/19 19:50 03/09/19 20:26 Normal Saline - IV 03/09/19 19:51 1,000 ml ONCE ONE Administration Medical Decision Making - Medical Decision Making 03/09/19 21:40 Patient signed out to me pending ultrasound for right-sided abdominal discomfort fever and signs of sepsis IV fluids and antibiotics have been ordered Ultrasound with no definitive evidence of cholecystitis CAT scan ordered to better delineate etiology of abdominal discomfort CT with evidence of mild right hydronephrosis 3 mm stone just distal to the right UVJ Case discussed with urology given likely sepsis from possible infected stone urology recommended discussion with interventional radiology Case discussed with interventional radiology given size of stone and high likelihood of passage will observe for 1 hour reassess and reconsult 03/09/19 22:07 Urology to take patient to OR for stent placement Discharge - Discharge Information Problems reviewed: Yes Clinical Impression/Diagnosis: Nephrolithiasis Abdominal pain Qualifiers: Abdominal location: right upper quadrant Qualified Code(s): R10.11 - Right upper quadrant pain Sepsis Qualifiers: Sepsis type: sepsis due to unspecified organism Sepsis acute organ dysfunction status: with acute organ dysfunction Severe sepsis acute organ dysfunction type : unspecified Severe sepsis shock status: unspecified Qualified Code(s): A41.9 - Sepsis, unspecified organism; R65.20 - Severe sepsis without septic shock Condition: Guarded - Follow up/Referral - Patient Discharge Instructions - Post Discharge Activity
[2019-03-09] MEDS ORDERED: SODIUM CHLORIDE 0.9% 1000 ML INFUS.BAG IV ONE (21:47)
--- NOTE | 2019-03-09 22:04 | PN ---
Teaching Attending Note Name of Resident: Luke Osborne ATTENDING PHYSICIAN STATEMENT I saw and evaluated the patient. I reviewed the resident's note and discussed the case with the resident. I agree with the resident's findings and plan as documented. SUBJECTIVE: 73-year-old woman with past history of appendicitis and right oophorectomy was complaining of 1 day of right upper quadrant pain associated with multiple episodes of nonbloody nonbilious vomiting. She was found to have Rigors and was tachycardic to the 120s. CT of abdomen and pelvis was performed and found to have right hydronephrosis with 3 mm calculus at or just beyond the right ureterovesicular junction. She was given vancomycin and Zosyn empirically in the emergency room. Urology on-call was consulted OBJECTIVE: Last Vital Signs Temp Pulse Resp BP Pulse Ox 97.5 F L 94 H 22 H 89/60 L 97 03/09/19 20:49 03/09/19 20:49 03/09/19 20:49 03/09/19 20:49 03/09/19 20:49 Patient is in the OR when I tried to interview and examine her. I was not able to assess the patient in person. Abnormal Lab Results 03/09/19 03/09/19 03/09/19 16:10 16:10 16:10 WBC MCV Absolute Neuts (auto) Neutrophils % Lymphocytes % Lymphocytes % (Manual) Monocytes % PT with INR 15.40 H INR 1.30 H POC VBG pO2 VBG O2 Sat (Leonid) Potassium BUN Creatinine Random Glucose Lactic Acid 2.8 H* Calcium Lipase Urine Protein 1+ H Urine Ketones Trace H Urine Blood 3+ H 03/09/19 03/09/19 03/09/19 16:25 16:25 16:25 WBC 18.2 H MCV 96.2 H Absolute Neuts (auto) 17.6 H Neutrophils % 96.5 H Lymphocytes % 2.3 L Lymphocytes % (Manual) 1.0 L Monocytes % 1.1 L PT with INR INR POC VBG pO2 VBG O2 Sat (Leonid) Potassium 3.2 L BUN 35.9 H Creatinine 1.6 H Random Glucose 117 H Lactic Acid Calcium 8.1 L Lipase 45 L Urine Protein Urine Ketones Urine Blood 03/09/19 03/09/19 16:25 18:07 WBC MCV Absolute Neuts (auto) Neutrophils % Lymphocytes % Lymphocytes % (Manual) Monocytes % PT with INR INR POC VBG pO2 < 49 H VBG O2 Sat (Leonid) 34.1 L Potassium BUN Creatinine Random Glucose Lactic Acid 4.3 H* Calcium Lipase Urine Protein Urine Ketones Urine Blood Imaging reviewed Abdoominal/Pelvic CT- Mild right hydronephrosis due to a 3 mm calculus at or just beyond the right ureterovesical junction. Additional tiny right intrarenal calculus. No AAA. No evidence for diverticulitis, small bowel obstruction, free fluid, or free air. Appendix not seen with certainty. ASSESSMENT AND PLAN: 73-year-old woman with severe sepsis secondary to complicated UTI with right UVJ 3 mm ureter stone, With severe leukocytosis, lactic acidosis, tachycardia. 2 blood culture sets positive for gram-negative bacilli. MedSurg Currently in OR undergoing procedure by urology service IV fluid hydration Trend lactic acid Zosyn empirically We will need repeat blood cultures to ensure that infection is clearing Infectious disease consult Follow-up blood culture and urine culture Urology follow-up for stone removal DVT prophylaxisSCDs
[2019-03-09] MEDS ORDERED: ACETAMINOPHEN 325 MG TABLET (FP) PO PRN (22:24)
[2019-03-09] MEDS ORDERED: ONDANSETRON 4 MG/2 ML VIAL IVPUSH PRN (22:27)
[2019-03-09] MEDS ORDERED: LACTATED RINGERS SOLUTION 1,000 ML IV SCH (22:30)
[2019-03-09] MEDS ORDERED: SODIUM CHLORIDE 1,000 ML IV SCH (22:30)
[2019-03-09] MEDS ORDERED: MIDAZOLAM HCL 2 MG/2 ML SINGLE DOSE VIAL ONE (22:33)
--- NOTE | 2019-03-09 22:35 | HP ---
CHIEF COMPLAINT: PCP: none HISTORY OF PRESENT ILLNESS: The patient is a 73 yo f w/ PMH HLD who comes into the ED c/o a 1 day h/o RLQ abdominal pain. The patient is unable to accurately describe the pain, but endorses that its on her right side. The patient associates this pain with 4 episodes of nonbloody vomiting and nausea. Patient endoses chills, but denies subjective fevers. The patient endorses 1 similar episode in the past where she experienced a less severe abdominal pain and no nausea. this episode was self limited. The patient states that her pain is improved now ER course was notable for: (1) Fever to 100.6 (2) WBC count 18.2 (3) CT AP showing right sided 3mm stone at the UVJ with mild hydro Recent Travel: none PAST MEDICAL HISTORY: see HPI PAST SURGICAL HISTORY: appendectomy 20 years ago. Social History: Smoking: denies Alcohol: denies Drugs: denies Allergies No Known Allergies Allergy (Verified 03/09/19 14:50) HOME MEDICATIONS: Home Medications Medication Instructions Recorded Non-Formulary 1 tab PO HS 05/22/16 Oxymetazoline 0.05% Nasal Soln 1 spray NS BID #1 spraybtl 05/22/16 [Afrin -] REVIEW OF SYSTEMS CONSTITUTIONAL: Absent: fever, generalized weakness, malaise, loss of appetite, weight change HEENT: Absent: rhinorrhea, nasal congestion, throat pain, throat swelling, difficulty swallowing, mouth swelling, ear pain, eye pain, visual changes CARDIOVASCULAR: Absent: chest pain, syncope, palpitations, irregular heart rate, lightheadedness , peripheral edema RESPIRATORY: Absent: cough, shortness of breath, dyspnea with exertion, orthopnea, wheezing, stridor, hemoptysis GASTROINTESTINAL: Absent: abdominal pain, abdominal distension, nausea, vomiting, diarrhea, constipation, melena, hematochezia GENITOURINARY: Absent: dysuria, frequency, urgency, hesitancy, hematuria, genital pain MUSCULOSKELETAL: Absent: myalgia, arthralgia, joint swelling, back pain, neck pain SKIN: Absent: rash, itching, pallor HEMATOLOGIC/IMMUNOLOGIC: Absent: easy bleeding, easy bruising, lymphadenopathy, frequent infections ENDOCRINE: Absent: unexplained weight gain, unexplained weight loss, heat intolerance, cold intolerance NEUROLOGIC: Absent: headache, focal weakness or paresthesias, dizziness, unsteady gait, seizure, mental status changes, bladder or bowel incontinence PSYCHIATRIC: Absent: anxiety, depression, suicidal or homicidal ideation, hallucinations. PHYSICAL EXAMINATION Vital Signs - 24 hr 03/09/19 03/09/19 03/09/19 14:47 16:06 18:00 Temperature 98 F 100.6 F H 98.7 F Pulse Rate 92 H 59 L Pulse Rate [ 97 H Right Radial] Respiratory 18 16 18 Rate Blood Pressure 91/54 L 134/89 Blood Pressure 121/67 [Left] O2 Sat by Pulse 100 100 94 L Oximetry (%) 03/09/19 20:49 Temperature 97.5 F L Pulse Rate Pulse Rate [ 94 H Right Radial] Respiratory 22 H Rate Blood Pressure Blood Pressure 89/60 L [Left] O2 Sat by Pulse 97 Oximetry (%) GENERAL: Patient overtly ill appearing. She is lethargic and difficult to arouse. Once engaged, however, the patient is fully oriented. HEAD: Normal with no signs of trauma. EYES: Pupils equal, round and reactive to light, extraocular movements intact, sclera anicteric, conjunctiva clear. No lid lag. LUNGS: Breath sounds equal, clear to auscultation bilaterally. No wheezes, and no crackles. No accessory muscle use. HEART: Regular rate and rhythm, normal S1 and S2 without murmur, rub or gallop. ABDOMEN: Soft, nontender, not distended, normoactive bowel sounds, no guarding, no rebound, no masses. No CVA tenderness LOWER EXTREMITIES: 2+ pulses, warm, well-perfused. No calf tenderness. No peripheral edema. NEUROLOGICAL: Cranial nerves II-X intact. Normal speech. Laboratory Results - last 24 hr 03/09/19 03/09/19 03/09/19 16:10 16:10 16:10 WBC RBC Hgb Hct MCV MCH MCHC RDW Plt Count MPV Absolute Neuts (auto) Neutrophils % Neutrophils % (Manual) Band Neutrophils % Lymphocytes % Lymphocytes % (Manual) Monocytes % Monocytes % (Manual) Eosinophils % Eosinophils % (Manual) Basophils % Basophils % (Manual) Myelocytes % (Man) Promyelocytes % (Man) Blast Cells % (Manual) Nucleated RBC % Metamyelocytes Platelet Estimate Macrocytosis PT with INR 15.40 H INR 1.30 H PTT (Actin FS) 31.7 VBG pH POC VBG pCO2 POC VBG pO2 VBG HCO3 VBG O2 Sat (Leonid) VBG Base Excess Sodium Potassium Chloride Carbon Dioxide Anion Gap BUN Creatinine Est GFR (CKD-EPI)AfAm Est GFR (CKD-EPI)NonAf Random Glucose Lactic Acid 2.8 H* Calcium Magnesium Total Bilirubin AST ALT Alkaline Phosphatase Troponin I Total Protein Albumin Lipase Urine Color Yellow Urine Appearance Cloudy Urine pH 5.0 Ur Specific [place] 1.017 Urine Protein 1+ H Urine Glucose (UA) Negative Urine Ketones Trace H Urine Blood 3+ H Urine Nitrite Negative Urine Bilirubin Negative Urine Urobilinogen 0.2 Ur Leukocyte Esterase Trace Urine WBC (Auto) 5 Urine RBC (Auto) 3 Urine Casts (Auto) 9 U Epithel Cells (Auto) 1.7 Urine Bacteria (Auto) Positive Blood Type Antibody Screen Prewarmed Antibody Srcn Antibody Identification Antigen Identification 03/09/19 03/09/19 03/09/19 16:25 16:25 16:25 WBC 18.2 H RBC 3.98 Hgb 13.0 Hct 38.3 MCV 96.2 H MCH 32.7 MCHC 34.0 RDW 12.4 Plt Count 147 MPV 7.8 Absolute Neuts (auto) 17.6 H Neutrophils % 96.5 H Neutrophils % (Manual) 77.0 Band Neutrophils % 16.0 Lymphocytes % 2.3 L Lymphocytes % (Manual) 1.0 L Monocytes % 1.1 L Monocytes % (Manual) 6 Eosinophils % 0.0 Eosinophils % (Manual) 0.0 Basophils % 0.1 Basophils % (Manual) 0.0 Myelocytes % (Man) 0 Promyelocytes % (Man) 0 Blast Cells % (Manual) 0 Nucleated RBC % 0 Metamyelocytes 0 Platelet Estimate Decreased Macrocytosis 1+ PT with INR INR PTT (Actin FS) Cancelled VBG pH POC VBG pCO2 POC VBG pO2 VBG HCO3 VBG O2 Sat (Leonid) VBG Base Excess Sodium 137 Potassium 3.2 L Chloride 100 Carbon Dioxide 26 Anion Gap 11 BUN 35.9 H Creatinine 1.6 H Est GFR (CKD-EPI)AfAm 36.41 Est GFR (CKD-EPI)NonAf 31.42 Random Glucose 117 H Lactic Acid Calcium 8.1 L Magnesium Total Bilirubin 0.7 AST 26 ALT 16 Alkaline Phosphatase 64 Troponin I 0.02 Total Protein 6.5 Albumin 3.4 Lipase Urine Color Urine Appearance Urine pH Ur Specific [place] Urine Protein Urine Glucose (UA) Urine Ketones Urine Blood Urine Nitrite Urine Bilirubin Urine Urobilinogen Ur Leukocyte Esterase Urine WBC (Auto) Urine RBC (Auto) Urine Casts (Auto) U Epithel Cells (Auto) Urine Bacteria (Auto) Blood Type Antibody Screen Prewarmed Antibody Srcn Antibody Identification Antigen Identification 03/09/19 03/09/19 03/09/19 16:25 16:25 16:25 WBC RBC Hgb Hct MCV MCH MCHC RDW Plt Count MPV Absolute Neuts (auto) Neutrophils % Neutrophils % (Manual) Band Neutrophils % Lymphocytes % Lymphocytes % (Manual) Monocytes % Monocytes % (Manual) Eosinophils % Eosinophils % (Manual) Basophils % Basophils % (Manual) Myelocytes % (Man) Promyelocytes % (Man) Blast Cells % (Manual) Nucleated RBC % Metamyelocytes Platelet Estimate Macrocytosis PT with INR INR PTT (Actin FS) VBG pH POC VBG pCO2 POC VBG pO2 VBG HCO3 VBG O2 Sat (Leonid) VBG Base Excess Sodium Potassium Chloride Carbon Dioxide Anion Gap BUN Creatinine Est GFR (CKD-EPI)AfAm Est GFR (CKD-EPI)NonAf Random Glucose Lactic Acid Calcium Magnesium 1.8 Total Bilirubin AST ALT Alkaline Phosphatase Troponin I Total Protein Albumin Lipase 45 L Urine Color Urine Appearance Urine pH Ur Specific [place] Urine Protein Urine Glucose (UA) Urine Ketones Urine Blood Urine Nitrite Urine Bilirubin Urine Urobilinogen Ur Leukocyte Esterase Urine WBC (Auto) Urine RBC (Auto) Urine Casts (Auto) U Epithel Cells (Auto) Urine Bacteria (Auto) Blood Type A POSITIVE Antibody Screen Positive Prewarmed Antibody Srcn Negative Antibody Identification Cold agg Antigen Identification A1 ANTIGEN - POSITIVE 03/09/19 03/09/19 16:25 18:07 WBC RBC Hgb Hct MCV MCH MCHC RDW Plt Count MPV Absolute Neuts (auto) Neutrophils % Neutrophils % (Manual) Band Neutrophils % Lymphocytes % Lymphocytes % (Manual) Monocytes % Monocytes % (Manual) Eosinophils % Eosinophils % (Manual) Basophils % Basophils % (Manual) Myelocytes % (Man) Promyelocytes % (Man) Blast Cells % (Manual) Nucleated RBC % Metamyelocytes Platelet Estimate Macrocytosis PT with INR INR PTT (Actin FS) VBG pH 7.38 POC VBG pCO2 43.2 POC VBG pO2 < 49 H VBG HCO3 24.9 VBG O2 Sat (Leonid) 34.1 L VBG Base Excess 0.2 Sodium Potassium Chloride Carbon Dioxide Anion Gap BUN Creatinine Est GFR (CKD-EPI)AfAm Est GFR (CKD-EPI)NonAf Random Glucose Lactic Acid 4.3 H* Calcium Magnesium Total Bilirubin AST ALT Alkaline Phosphatase Troponin I Total Protein Albumin Lipase Urine Color Urine Appearance Urine pH Ur Specific [place] Urine Protein Urine Glucose (UA) Urine Ketones Urine Blood Urine Nitrite Urine Bilirubin Urine Urobilinogen Ur Leukocyte Esterase Urine WBC (Auto) Urine RBC (Auto) Urine Casts (Auto) U Epithel Cells (Auto) Urine Bacteria (Auto) Blood Type Antibody Screen Prewarmed Antibody Srcn Antibody Identification Antigen Identification ASSESSMENT/PLAN: The patient is a 73 yo f w/ PMH HLD who comes into the ED c/o a 1 day h/o RLQ abdominal pain found to be septic with an obstructing renal stone. #sepsis 2/2 uti w/ infected stone -ucx pending -BCX w/ preliminary results of Gram Neg bacilli in both bottles -s/p vanc zosyn in the ED -will continue with zosyn 3.375g q6h -s/p NS boluses in the ed, will start ns @ 75 for maintanence hydration - consulted, will place ureteral stent urgently tonight -patient w/ lactic acidosis ~4, will rpt after procedure and hydration #hypokalemia -will replete w/ 40meq KCL PO #FEN -NS @ 75 -replete K+ as above -regular diet after procedure #Prophy -SCDs in perioperative period #dispo -OR, then admit med surg Visit type - Emergency Visit Emergency Visit: Yes ED Registration Date: 03/09/19 Care time: The patient presented to the Emergency Department on the above date and was hospitalized for further evaluation of their emergent condition. - New Patient This patient is new to me today: Yes Date on this admission: 03/10/19 - Critical Care Critical Care patient: No ATTENDING PHYSICIAN STATEMENT I saw and evaluated the patient. I reviewed the resident's note and discussed the case with the resident. I agree with the resident's findings and plan as documented. SUBJECTIVE: OBJECTIVE: ASSESSMENT AND PLAN:
[2019-03-09] MEDS ORDERED: PROPOFOL 20 ML ONE ×3 (22:38)
[2019-03-09] MEDS ORDERED: ETOMIDATE 20 MG/10 ML AMPUL IVPUSH ONE (22:39)
[2019-03-09] MEDS ORDERED: SUCCINYLCHOLINE CHLORIDE 200 MG/10 ML SYRINGE ONE (22:39)
[2019-03-09] MEDS ORDERED: LIDOCAINE HCL/PF 2% SDV 5ML VIAL ONE ×2 (22:39→22:40)
[2019-03-09] MEDS ORDERED: DEXAMETHASONE SOD PHOSPHATE 4 MG/1 ML VIAL ONE (22:40)
[2019-03-09] MEDS ORDERED: ePHEDrine SULFATE 50 MG/1 ML AMPULE ONE (22:42)
[2019-03-09] MEDS ORDERED: PHENYLEPHRINE HCL 10 MG/1 ML SINGLE DOSE VIAL ONE (22:42)
--- NOTE | 2019-03-09 22:42 | CON.GU ---
Consult Consult Specialty:: Referred by:: ED Reason for Consultation:: obs right ureteral calculus and sepsis - History of Present Illness Chief Complaint: right sided flank pain and fever. History of Present Illness: 73 yo female presents with right sided flank pain and fever. CT shows a 3mm R UVJ stone with hydronephrosis, She has fever, hypotension and tachycardia and elevated WBC with 16% bandemia. She also has an elevated lactate. Recommend emergent right kidney decompression - History Source History Provided By: Patient, Medical Record Limitations to Obtaining History: No Limitations - Past Medical History Renal/: No: Renal Failure, Renal Inusuff, BPH, Cancer, Hematuria, Hemodialysis , Neurogenic Bladder, Renal Calculi, UTI, Other - Alcohol/Substance Use Hx Alcohol Use: Yes (SOCIAL) - Smoking History Smoking history: Never smoked Have you smoked in the past 12 months: No Home Medications - Allergies Allergies/Adverse Reactions: Allergies Allergy/AdvReac Type Severity Reaction Status Date / Time No Known Allergies Allergy Verified 03/09/19 14:50 - Home Medications Home Medications: Ambulatory Orders Non-Formulary 1 tab PO HS 05/22/16 Oxymetazoline 0.05% Nasal Soln [Afrin -] 1 spray NS BID #1 spraybtl 05/22/16 Review of Systems - Review of Systems Constitutional: reports: Chills, Fever Genitourinary: reports: Flank Pain Physical Exam- Vital Signs: Vital Signs Temperature 97.5 F L 03/09/19 20:49 Pulse Rate 94 H 03/09/19 20:49 Respiratory Rate 22 H 03/09/19 20:49 Blood Pressure 89/60 L 03/09/19 20:49 O2 Sat by Pulse Oximetry (%) 97 03/09/19 20:49 Renal/: Yes: CVA Tenderness - Right Labs: CBC, BMP 03/09/19 16:25 03/09/19 16:25 Imaging - Results Cat Scan: Report Reviewed Problem List - Problems (1) Calculus of distal right ureter Assessment/Plan: for emergent stent placement Code(s): N20.1 - CALCULUS OF URETER (2) Sepsis Code(s): A41.9 - SEPSIS, UNSPECIFIED ORGANISM Qualifiers: Sepsis type: sepsis due to unspecified organism Sepsis acute organ dysfunction status: unspecified Qualified Code(s): A41.9 - Sepsis, unspecified organism
[2019-03-09] MEDS ORDERED: SODIUM CHLORIDE 0.9% P/F 10 ML VIAL IJ ONE (22:45)
[2019-03-09] MEDS ORDERED: CEFTRIAXONE 1 GM in DEXTROSE 5%-WATER - 50 ML IVPB SCH (22:45)
[2019-03-09] MEDS ORDERED: DESFLURANE GAS 240 ML BOTTLE IH ONE (23:56)
[2019-03-10] MEDS ORDERED: ALBUTEROL SO4 0.083% IH SOL 2.5 MG/3 ML VIAL.NEB. NEB ONE (00:52)
[2019-03-10] MEDS ORDERED: LACTATED RINGERS SOLUTION 1,000 ML IV SCH (00:56)
[2019-03-10] MEDS ORDERED: ACETAMINOPHEN 325 MG TABLET (FP) PO PRN (00:56)
[2019-03-10] MEDS ORDERED: ONDANSETRON 4 MG/2 ML VIAL IVPUSH PRN (00:56)
[2019-03-10] MEDS ORDERED: SODIUM CHLORIDE 1,000 ML IV SCH (00:56)
[2019-03-10] MEDS ORDERED: ALBUTEROL SO4 2.5/IPRATROPIUM 0.5 INH SOL 3 ML VIAL.NEB. NEB ONE (01:57)
--- NOTE | 2019-03-10 02:05 | CONSULT ---
Consult Consult Specialty:: Critical Care Med Reason for Consultation:: obstructive uropathy, CORAL, GN bactermia, CORAL - History of Present Illness Chief Complaint: Rigth flank pain History of Present Illness: This is a 71 yo woman with no past medical history who presented w/ RLQ pain found to have an obstructing renal calculus c/b GN bacteremia 2/2 UTI s/p right sided ureteral stent placement transferred to the ICU post op for continued care. She initially presented to the ED w/ right sided flank pain and fevers. CTAP showed mm R UVJ stone with hydronephrosis. She was hypotensive requiring IV fluids for BP support. Labs showed leukocytosis w/ bandemia (wbc 18, 16% bands) , CORAL (SCr 1.6) w/ lactica acid of 2.8->4.3. Cultures sent and blood cultures returned positive for GNR. She received ceftriaxone and zosyn and vanco for broad coverage. Urology was consulted and she was taken to the OR for emergent right ureteral stent placement. She required addition IVF (~2liters) in the OR for hypotension prompting transfer to ICU for management of sepsis. - History Source History Provided By: Patient, Medical Record Limitations to Obtaining History: Clinical Condition (sedated post op) - Past Medical History Renal/: No: Renal Failure, Renal Inusuff, BPH, Cancer, Hematuria, Hemodialysis , Neurogenic Bladder, Renal Calculi, UTI, Other - Alcohol/Substance Use Hx Alcohol Use: Yes (SOCIAL) - Smoking History Smoking history: Never smoked Have you smoked in the past 12 months: No <Venkatesh Martinez - Last Filed: 03/10/19 02:00> Home Medications <Venkatesh Martinez - Last Filed: 03/10/19 02:00> <Joni Can - Last Filed: 03/10/19 10:26> - Allergies Allergies/Adverse Reactions: Allergies Allergy/AdvReac Type Severity Reaction Status Date / Time No Known Allergies Allergy Verified 03/09/19 14:50 - Home Medications Home Medications: Ambulatory Orders Non-Formulary 1 tab PO HS 05/22/16 Oxymetazoline 0.05% Nasal Soln [Afrin -] 1 spray NS BID #1 spraybtl 05/22/16 Family Medical History Family History: Unable to Obtain (sedated ) <Venkatesh Martinez - Last Filed: 03/10/19 02:00> Review of Systems Unable to obtain ROS, reason: sedation post op <Venkatesh Martinez - Last Filed: 03/10/19 02:00> Physical Exam Vital Signs: Vital Signs Temperature 97.6 F 03/10/19 01:15 Pulse Rate 94 H 03/10/19 01:15 Respiratory Rate 18 03/10/19 01:15 Blood Pressure 92/48 L 03/10/19 01:15 O2 Sat by Pulse Oximetry (%) 98 03/10/19 01:15 Constitutional: Yes: No Distress Eyes: Yes: PERRL Cardiovascular: Yes: Regular Rate and Rhythm Respiratory: Yes: CTA Bilaterally Gastrointestinal: Yes: Normal Bowel Sounds, Soft Renal/: Yes: CVA Tenderness - Right, Luna Present, Hematuria Extremities: Yes: WNL Neurological: Yes: Lethargy (2/2 sedation) Labs: CBC, [facility] 03/09/19 16:25 03/09/19 16:25 <Venkatesh Martinez - Last Filed: 03/10/19 02:00> Vital Signs: Vital Signs Temperature 98.3 F 03/10/19 06:00 Pulse Rate 98 H 03/10/19 09:00 Respiratory Rate 18 03/10/19 09:00 Blood Pressure 93/71 03/10/19 09:00 O2 Sat by Pulse Oximetry (%) 95 03/10/19 01:49 Labs: CBC, BMP 03/10/19 05:10 03/10/19 05:10 <Joni Can - Last Filed: 03/10/19 10:26> Imaging - Results Cat Scan: Report Reviewed, Image Reviewed (EXAM: CT abdomen and pelvis with contrast DATE OF EXAM: 2019-03-09 19:34:22 Findings: Scarring and moderate atelectasis in lung bases. No pleural effusions. Right hepatic calcification. Heterogeneous liver enhancement. Gallbladder, pancreas, adrenal glands, and spleen are grossly unremarkable. *Mild right hydronephrosis due to a 3 mm calculus at or just beyond the right ureterovesical junction. Additional tiny right intrarenal calculus. No AAA. No evidence for diverticulitis, small bowel obstruction, free fluid, or free air. Appendix not seen with certainty. No secondary signs of appendicitis. Mild leiomyomatous uterus.) <Venkatesh Martinez - Last Filed: 03/10/19 02:00> Problem List - Problems (1) UTI (urinary tract infection) Code(s): N39.0 - URINARY TRACT INFECTION, SITE NOT SPECIFIED (2) Bacteremia Code(s): R78.81 - BACTEREMIA (3) CORAL (acute kidney injury) Code(s): N17.9 - ACUTE KIDNEY FAILURE, UNSPECIFIED (4) Calculus of distal right ureter Code(s): N20.1 - CALCULUS OF URETER (5) Sepsis Code(s): A41.9 - SEPSIS, UNSPECIFIED ORGANISM Qualifiers: Sepsis type: sepsis due to unspecified organism Sepsis acute organ dysfunction status: unspecified Qualified Code(s): A41.9 - Sepsis, unspecified organism <Venkatesh Martinez - Last Filed: 03/10/19 02:00> - Problems (1) Postoperative cardiac arrest following non-cardiac surgery Assessment/Plan: Cardiac arrest this morning (PEA), hours after ureteral stent placement; resumed sinus rhythm after one dose of epinephrine and cardiac compression after <3 minutes. Now responds to name; moves all extremities. TNI elevated, with sepsis, cardiac arrest as demand stressors; f/u serially. EKG post-arrest: NSR; low voltage QRS; nonspecific T wave changes; prolonged QT. On phenylephrine, IV fluids, Propofol. Maintain core temperature. Replete all electrolytes (K, Mg, Ca). Antibiotics per ID. ECHO for LVEF, wall motion, chamber sizes, valve status. Code(s): I97.121 - POSTPROCEDURAL CARDIAC ARREST FOLLOWING OTHER SURGERY (2) Septic shock Code(s): A41.9 - SEPSIS, UNSPECIFIED ORGANISM; R65.21 - SEVERE SEPSIS WITH SEPTIC SHOCK <Joni Can - Last Filed: 03/10/19 10:26> Assessment/Plan 73 yo woman w/ GN bacteremia 2/2 UTI r/t obstructive right sided renal calculi now s/p stent placement c/c/b CORAL 2/2 obstructive uropathy and sepsis -Urology following -Consult ID -Zosyn for GNR bacteremia -repeat blood cultures to insure bacteremia clearing -IV fluids -trend lactate -renal dose medications -O2 for sat >90 -incentive spirometry -DVT ppx w/ SCD given hematuria post stent placement Boeberny ACNP Pulm/CCM CCT: 40m <Venkatesh Martinez - Last Filed: 03/10/19 02:00>
[2019-03-10] MEDS: PIPERACILLIN/TAZOB 3.375 GM 3.375 GM in DEXTROSE 5%-WATER - 50 ML IVPB SCH ×2 (02:22→09:57)
[2019-03-10 06:07] LABS: HEMATOCRIT 36.2 % (32.4-45.2); HEMOGLOBIN 12.2 GM/dL (10.7-15.3); MCH 33.9 pg (25.7-33.7); MCHC 33.7 g/dl (32.0-36.0); MEAN CELL VOLUME 100.6 fl (80-96); PLATELET COUNT 46 K/MM3 (134-434); RDW 13.1 % (11.6-15.6); WHITE BLOOD COUNT 19.3 K/mm3 (4.0-10.0)
[2019-03-10] MEDS ORDERED: RAPID SEQUENCE INTUBATION KIT NR ONE (07:36)
[2019-03-10] MEDS ORDERED: PROPOFOL 1,000,000 MCG/100 ML VIAL ONE (07:59)
--- NOTE | 2019-03-10 08:01 | PN ---
Progress Note (short form) - Note Progress Note: Anesthesiology CODE 99 response, At 07:30 Code 99 Called. Pat was apneic and PEA. Responded to one amp epi. Spont breathing, Intubated by ICU PA. Stable.
[2019-03-10 08:03] LABS: ALBUMIN 2.2 g/dl (3.4-5.0); BILIRUBIN,TOTAL 2.1 mg/dL (0.2-1); BLOOD UREA NITROGEN 33.5 mg/dL (7-18); CREATININE 1.7 mg/dL (0.55-1.3); MAGNESIUM 1.6 mg/dL (1.8-2.4); PHOSPHOROUS 4.2 mg/dL (2.5-4.9); POTASSIUM 3.3 mmol/L (3.5-5.1); TOT PROT 4.5 g/dl (6.4-8.2)
--- NOTE | 2019-03-10 08:05 | PN ---
Progress Note (short form) - Note Progress Note: At 7:32 RN noted patient non responsive, last seen normal ~ 5 minutes before Pt found to be in PEA arrest and CPR started followed by EPI x1 w/ ROS after ~ 2min W/ I attempted intubation w/ MAc 3, 7.5 ETT w/ grade 1 view but unable to pass the ETT pass the cords, reattempt w/ 7.0 w/ same difficulty passing ETT pass the cords despite open appearance [place] scope #3 blade used w/ 6.o ETT able to pass w/o issue and positive color change CXR ordered on Review of tele patient appeared to have a junctional rhythm prior to event We will consult [facility] Problem List - Problems (1) UTI (urinary tract infection) Code(s): N39.0 - URINARY TRACT INFECTION, SITE NOT SPECIFIED (2) Bacteremia Code(s): R78.81 - BACTEREMIA (3) CORAL (acute kidney injury) Code(s): N17.9 - ACUTE KIDNEY FAILURE, UNSPECIFIED (4) Calculus of distal right ureter Code(s): N20.1 - CALCULUS OF URETER (5) Sepsis Code(s): A41.9 - SEPSIS, UNSPECIFIED ORGANISM Qualifiers: Sepsis type: sepsis due to unspecified organism Sepsis acute organ dysfunction status: unspecified Qualified Code(s): A41.9 - Sepsis, unspecified organism
[2019-03-10 08:13] LABS: CALCIUM 6.4 mg/dL (8.5-10.1)
[2019-03-10 09:03] LABS: ARTERIAL BLD GAS O2 SATURATION 89.6 % (95-98); ARTERIAL BLOOD GAS BASE EXCESS -25.3 meq/l (-2-2); ARTERIAL BLOOD GAS PCO2 33.3 mmHg (35-45)
[2019-03-10 09:15] LABS: ALLENS TEST POSITIVE; ARTERIAL BLOOD GAS PO2 92 mmHg (80-100)
[2019-03-10 09:19] LABS: ARTERIAL BLOOD GAS pH 6.92 (7.35-7.45)
[2019-03-10] MEDS ORDERED: SODIUM BICARBONATE 8.4% 50 MEQ/50 ML VIAL ONE ×3 (09:22→17:47)
[2019-03-10] MEDS ORDERED: SODIUM BICARBONATE 8.4% 50 MEQ/50 ML VIAL IVPUSH ONE (09:30)
[2019-03-10] MEDS ORDERED: SODIUM BICARBONATE 8.4% 50 MEQ/50 ML VIAL IVPB ONE ×3 (09:30→19:49)
[2019-03-10] MEDS: PROPOFOL 1,000,000 MCG/100 ML VIAL IVPB SCH ×2 (09:30→21:26)
[2019-03-10] MEDS ORDERED: PHENYLEPHRINE HCL 10 MG/1 ML SINGLE DOSE VIAL ONE (09:39)
[2019-03-10] MEDS ORDERED: SODIUM BICARBONATE 8.4% - 150 MEQ in DEXTROSE 5%-WATER - 1,000 ML IV SCH (09:45)
[2019-03-10] MEDS ORDERED: DEXTROSE 5%-WATER - 50 ML IVPB ONE (09:55)
[2019-03-10] MEDS ORDERED: PIPERACILLIN/TAZOBACTAM 3.375 GM VIAL IVPB ONE (09:55)
[2019-03-10] MEDS: PHENYLEPHRINE HCL 20,000 MCG in SODIUM CHLORIDE 248 ML IVPB SCH (09:57)
[2019-03-10] MEDS ORDERED: CEFTRIAXONE 1 GM in DEXTROSE 5%-WATER - 50 ML IVPB SCH (10:00)
[2019-03-10] MEDS ORDERED: POTASSIUM CHLORIDE TABS 10 MEQ TABLET.ER (FP) PO SCH (10:00)
[2019-03-10] MEDS ORDERED: PNEUMOC 13-VAL CONJ-DIP CRM/PF 0.5 ML DISP.SYRIN IM ONE (10:00)
[2019-03-10] MEDS ORDERED: SODIUM BICARBONATE 8.4% - 150 MEQ in DEXTROSE 5%-WATER - 1,000 ML IVPB ONE (10:00)
--- NOTE | 2019-03-10 10:01 | CON.CARD ---
Consult Consult Specialty:: cardiology Reason for Consultation:: post-op cardiac arrest - History of Present Illness Chief Complaint: Pt is intubated; opens eyes, moves limbs spontaneously; does not folllow commands History of Present Illness: The patient is a 73 year old woman (b. [place]), with a significant PMH of HLD and cataracts, who presents to the ED for evaluation of abdominal pain for one day. Patient endorses abdominal pain most prominent at the RLQ. She endorses 4 episodes of nausea and bilious, non-bloody vomit. She reports associated chills , but otherwise denies any acute complaints. Denies fever, chest pain, SOB, diarrhea, constipation, dysuria, hematuria. Allergies: NKA, NKDA Surgical History: Appendectomy; presented now w/ RLQ pain found to have an obstructing renal calculus c/b GN bacteremia 2/2 UTI s/p right sided ureteral stent placement transferred to the ICU post op for continued care. She initially presented to the ED w/ right sided flank pain and fevers. CTAP showed mm R UVJ stone with hydronephrosis. She was hypotensive requiring IV fluids for BP support. Labs showed leukocytosis w/ bandemia (wbc 18, 16% bands) , CORAL (SCr 1.6) w/ lactica acid of 2.8->4.3. Cultures sent and blood cultures returned positive for GNR. She received ceftriaxone and zosyn and vanco for broad coverage. Urology was consulted and she was taken to the OR for emergent right ureteral stent placement. She required addition IVF (~2liters) in the OR for hypotension prompting transfer to ICU for management of sepsis. Social History: Social EtOH use. Denies tobacco or illicit drug use - History Source History Provided By: Medical Record Limitations to Obtaining History: Other - Past Medical History Cardio/Vascular: Yes: Hyperlipdemia Renal/: No: Renal Failure, Renal Inusuff, BPH, Cancer, Hematuria, Hemodialysis , Neurogenic Bladder, Renal Calculi, UTI, Other Reproductive: Yes: Postmenopausal ...: No Heme/Onc: No: Anemia Psych: No: Addictions - Alcohol/Substance Use Hx Alcohol Use: Yes (SOCIAL) - Smoking History Smoking history: Never smoked Have you smoked in the past 12 months: No - Social History Place of : Other Home Medications - Allergies Allergies/Adverse Reactions: Allergies Allergy/AdvReac Type Severity Reaction Status Date / Time No Known Allergies Allergy Verified 03/09/19 14:50 - Home Medications Home Medications: Ambulatory Orders Non-Formulary 1 tab PO HS 05/22/16 Oxymetazoline 0.05% Nasal Soln [Afrin -] 1 spray NS BID #1 spraybtl 05/22/16 Family Medical History Family History: Unable to Obtain Review of Systems Unable to obtain ROS, reason: intubated - Risk Factors Known Risk Factors: Yes: Age, Hypercholesterolemia, Other Vital Signs: Vital Signs Temperature 98.3 F 03/10/19 06:00 Pulse Rate 98 H 03/10/19 09:00 Respiratory Rate 18 03/10/19 09:00 Blood Pressure 93/71 03/10/19 09:00 O2 Sat by Pulse Oximetry (%) 95 03/10/19 01:49 Constitutional: Yes: Thin Eyes: Yes: Sclera Icterus HENT: Yes: Other Neck: Yes: Decreased ROM (intubated) Respiratory: Yes: Diminished Gastrointestinal: Yes: Soft Renal/: Yes: Luna Present, Hematuria. No: Anuria Cardiovascular: Yes: Regular Rate and Rhythm JVD: No Carotid Bruit: No PMI: Non-Displaced Heart Sounds: Yes: S1, S2 Murmur: Yes: Systolic Murmur, Grade 2 Musculoskeletal: Yes: Muscle Weakness Extremities: Yes: Cold, Cyanosis Edema: Yes Edema: LLE: Trace, RLE: Trace Peripheral Pulses WNL: No Peripheral Pulses: 1+ Left Doralis Pedis, 1+ Right Dorsalis Pedis Integumentary: Yes: Other Neurological: Yes: Weakness Psychiatric: Yes: Other - Other Data Labs, Other Data: CBC, BMP 03/10/19 05:10 03/10/19 05:10 INR, PTT INR 1.30 (0.83-1.09) H 03/09/19 16:10 Troponin, BNP 03/09/19 03/10/19 16:25 05:10 Troponin I 0.02 1.28 H* Troponin, BNP 03/09/19 03/10/19 16:25 05:10 Troponin I 0.02 1.28 H* Abnormal Lab Results 03/10/19 03/10/19 03/10/19 05:10 05:10 05:10 WBC 19.3 H RBC MCV 100.6 H MCH 33.9 H MCHC Plt Count 46 L D PT with INR INR PTT (Actin FS) ABG pH ABG pCO2 at Pt Temp ABG pO2 at Pt Temp ABG HCO3 ABG O2 Sat (Measured) ABG Base Excess Potassium 3.3 L Chloride 112 H Carbon Dioxide 16 L Anion Gap BUN 33.5 H Creatinine 1.7 H Random Glucose 69 L Lactic Acid 5.9 H* Calcium 6.4 L* Magnesium 1.6 L Total Bilirubin 2.1 H AST 314 H ALT 179 H Creatine Kinase CK-MB (CK-2) Troponin I 1.28 H* Total Protein 4.5 L Albumin 2.2 L 03/10/19 03/10/19 03/10/19 08:50 09:25 12:25 WBC RBC MCV MCH MCHC Plt Count PT with INR INR PTT (Actin FS) ABG pH 6.92 L* 7.00 L* ABG pCO2 at Pt Temp 33.3 L 28.1 L ABG pO2 at Pt Temp 110 H ABG HCO3 6.5 L 6.6 L ABG O2 Sat (Measured) 89.6 L 94.9 L ABG Base Excess -25.3 L -24.1 L Potassium Chloride Carbon Dioxide Anion Gap BUN Creatinine Random Glucose Lactic Acid Calcium Magnesium Total Bilirubin AST ALT Creatine Kinase 663 H CK-MB (CK-2) 23.3 H Troponin I 5.82 H* Total Protein Albumin 03/10/19 03/10/19 03/10/19 16:20 16:20 16:20 WBC 21.4 H RBC 3.53 L MCV 102.4 H MCH MCHC 31.1 L Plt Count 58 L D PT with INR INR PTT (Actin FS) ABG pH ABG pCO2 at Pt Temp ABG pO2 at Pt Temp ABG HCO3 ABG O2 Sat (Measured) ABG Base Excess Potassium Chloride 110 H Carbon Dioxide 9 L Anion Gap 21 H BUN 34.9 H Creatinine 2.0 H Random Glucose Lactic Acid 15.0 H* Calcium 6.3 L* Magnesium Total Bilirubin 2.5 H AST 544 H ALT 268 H Creatine Kinase 1637 H CK-MB (CK-2) 52.0 H Troponin I 18.70 H* Total Protein 3.6 L Albumin 1.7 L 03/10/19 03/10/19 03/10/19 16:20 16:30 20:20 WBC RBC MCV MCH MCHC Plt Count PT with INR 34.50 H INR 2.89 H PTT (Actin FS) 54.7 H ABG pH 6.96 L* 7.15 L* ABG pCO2 at Pt Temp 26.2 L 31.9 L ABG pO2 at Pt Temp 158 H 78.7 L ABG HCO3 5.6 L 10.7 L ABG O2 Sat (Measured) 92.8 L ABG Base Excess -25.4 L -17.0 L Potassium Chloride Carbon Dioxide Anion Gap BUN Creatinine Random Glucose Lactic Acid Calcium Magnesium Total Bilirubin AST ALT Creatine Kinase CK-MB (CK-2) Troponin I Total Protein Albumin 03/10/19 23:45 WBC RBC MCV MCH MCHC Plt Count PT with INR INR PTT (Actin FS) ABG pH 7.20 L ABG pCO2 at Pt Temp 29.7 L ABG pO2 at Pt Temp 120 H ABG HCO3 11.2 L ABG O2 Sat (Measured) ABG Base Excess -15.5 L Potassium Chloride Carbon Dioxide Anion Gap BUN Creatinine Random Glucose Lactic Acid Calcium Magnesium Total Bilirubin AST ALT Creatine Kinase CK-MB (CK-2) Troponin I Total Protein Albumin Echo: Pending Imaging - Results Chest X-ray: Image Reviewed EKG: Image Reviewed Problem List - Problems (1) Postoperative cardiac arrest following non-cardiac surgery Assessment/Plan: Pt noted unresponsive at 7:32 am today (PEA; apnea), hours after ureteral stent placement; resumed sinus rhythm after one dose of epinephrine and cardiac compression after <3 minutes. Now opens eyes; moves all extremities spontaneously, but does not respond to requests. TNI elevated, with sepsis, cardiac arrest as demand stressors; f/u serially. EKG post-arrest: NSR; low voltage QRS; nonspecific T wave changes; prolonged QT. On phenylephrine, IV fluids, Propofol. Maintain core temperature. Replete all electrolytes (K, Mg, Ca). Antibiotics per ID. For platelet replacement. Maintain fluids. ECHO for LVEF, wall motion, chamber sizes, valve status. Code(s): I97.121 - POSTPROCEDURAL CARDIAC ARREST FOLLOWING OTHER SURGERY (2) Septic shock Assessment/Plan: Antibiotics per ID, fluids. Code(s): A41.9 - SEPSIS, UNSPECIFIED ORGANISM; R65.21 - SEVERE SEPSIS WITH SEPTIC SHOCK (3) Thrombocytopenia Assessment/Plan: for platelets. Code(s): D69.6 - THROMBOCYTOPENIA, UNSPECIFIED Assessment/Plan CCU time spent: 80 minutes
[2019-03-10] MEDS ORDERED: CALCIUM GLUCONATE 10% - 1,000 MG/10 ML VIAL IVPB ONE ×2 (10:02→17:50)
[2019-03-10] MEDS ORDERED: MAGNESIUM SULF 50% (8.12 MEQ/2 ML-1 GM VIAL) IVPB ONE (10:02)
[2019-03-10] MEDS: MUPIROCIN 2% TOPICAL OINTMENT FOR DECOLONIZATION NS SCH ×2 (11:29→23:25)
[2019-03-10] MEDS: POTASSIUM CHLORIDE TABS 20 MEQ TABLET.ER (FP) PO SCH (11:29)
--- NOTE | 2019-03-10 12:06 | OP ---
DATE OF OPERATION: 03/09/2019 PREOPERATIVE DIAGNOSES: Obstructed right kidney, right ureteral calculus, pyelonephritis, sepsis. POSTOPERATIVE DIAGNOSES: Obstructed right kidney, right ureteral calculus, pyelonephritis, sepsis. PROCEDURE: Cystoscopy, right ureteroscopy, stone removal with basket, right retrograde pyelogram, and right ureteral stent placement. SURGEON: Hari Pedroza MD ESTIMATED BLOOD LOSS: Minimal. FINDINGS: An obstructing stone in the distal right ureter. DRAINS: A 6 x 22 double-J ureteral stent and a 16-Indian Luna catheter. PREOPERATIVE INDICATIONS: The patient is a 73-year-old female who presented to [facility] emergency room with 1 day of right-sided flank pain. She also presented with fever and chills and elevated white count with 16% bands and a lactate of 4. She had tachycardia and hypotension. Urology was consulted at approximately 9 p.m. on the because of the unstable nature of this patient an IR consult was requested. IR evaluated the patient and deferred any management of the patient. The patient was then scheduled for retrograde stent placement in the operating room. She comes to the OR, is delivered from the emergency room, into the recovery room with a pressure of 80/50 and a heart rate of 107. Patient was awake and alert, although she was lethargic. Consent was obtained. Patient was then brought in to the operating room. OPERATION: The patient was brought to the OR, placed on the table in the supine position, given general anesthesia and then placed in the modified lithotomy position. The groin was prepped and draped sterilely and timeout was performed. Cystoscopy was performed. The bladder appeared very hyperemic. The right UO was visualized, it was very tight. Attempts at passing a wire were unsuccessful, as the stone was obstructing and was impacted in the distal right ureter. Ultimately a ureteroscope was passed into the right ureteral orifice to aid in passing the wire. During this process, the stone was visualized. A stone basket was used and the stone was removed. Retrograde pyelogram was performed; however, the upper end of the wire could not be passed into the renal pelvis. There was tortuosity at the UPJ. The scope was removed. A 10-Indian dual-lumen catheter was used. A Glidewire was then ultimately passed into the upper pole of the right kidney. This was substituted for a regular guidewire, which was placed in the upper pole of the right kidney. A 6 x 22 double-J ureteral stent was then placed, with one loop in the upper pole of the right kidney under fluoroscopic guidance, the other loop in the bladder. A Luna catheter was then placed. Patient was woken up, continued to be hypotensive with tachycardia and transferred to the PACU and the ICU. Aditi [id number]
[2019-03-10] MEDS: KCL 10 MEQ IVPB 10 MEQ/100 ML INFUS.BAG IVPB SCH ×2 (12:28→13:31)
[2019-03-10 12:41] LABS: ARTERIAL BLD GAS O2 SATURATION 94.9 % (95-98); ARTERIAL BLOOD GAS BASE EXCESS -24.1 meq/l (-2-2); ARTERIAL BLOOD GAS PCO2 28.1 mmHg (35-45)
[2019-03-10 12:44] LABS: ALLENS TEST POSITIVE; ARTERIAL BLOOD GAS PO2 110 mmHg (80-100)
--- NOTE | 2019-03-10 12:45 | PN ---
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 Patient had this morning surgery done emergency for obstructive uropathy by urologkeith and in the morning hours she went to cardiopulmonary arrest she possibly had a junctional rhythm during the event and it is evident on the strip telemetry strip. At this time patient is on ventilator and her vitals are her blood pressure is is improved now Blood work done after the cardiopulmonary arrest are as follows she has a very low calcium 6.4 also has a troponin which is 5.82 which is high. On a note that she had troponin before this event it was 1.28 which is high also I guess she was having an event of cardiac stress during the procedure. It was an emergency surgery required for patient's life. Vital Signs Period Temp Pulse Resp BP Sys/Cote Pulse Ox Last 24 Hr 07.6 F-100.6 F 59-102 16-30 63-134/43-89 94-100 CBC, BMP 03/10/19 05:10 03/10/19 05:10 Laboratory Results - last 24 hr 03/09/19 03/09/19 03/09/19 16:10 16:10 16:10 WBC RBC Hgb Hct MCV MCH MCHC RDW Plt Count MPV Absolute Neuts (auto) Neutrophils % Neutrophils % (Manual) Band Neutrophils % Lymphocytes % Lymphocytes % (Manual) Monocytes % Monocytes % (Manual) Eosinophils % Eosinophils % (Manual) Basophils % Basophils % (Manual) Myelocytes % (Man) Promyelocytes % (Man) Blast Cells % (Manual) Nucleated RBC % Metamyelocytes Platelet Estimate Macrocytosis PT with INR 15.40 H INR 1.30 H PTT (Actin FS) 31.7 Anticoagulation Therapy Puncture Site ABG pH ABG pCO2 at Pt Temp ABG pO2 at Pt Temp ABG HCO3 ABG O2 Sat (Measured) ABG O2 Content ABG Base Excess Valeriano Test VBG pH POC VBG pCO2 POC VBG pO2 VBG HCO3 VBG O2 Sat (Leonid) VBG Base Excess O2 Delivery Device Oxygen Flow Rate Vent Mode Vent Rate Mechanical Rate PEEP Pressure Support Vent Sodium Potassium Chloride Carbon Dioxide Anion Gap BUN Creatinine Est GFR (CKD-EPI)AfAm Est GFR (CKD-EPI)NonAf Random Glucose Lactic Acid 2.8 H* Calcium Phosphorus Magnesium Total Bilirubin AST ALT Alkaline Phosphatase Creatine Kinase Creatine Kinase Index CK-MB (CK-2) Troponin I Total Protein Albumin Lipase Urine Color Yellow Urine Appearance Cloudy Urine pH 5.0 Ur Specific [place] 1.017 Urine Protein 1+ H Urine Glucose (UA) Negative Urine Ketones Trace H Urine Blood 3+ H Urine Nitrite Negative Urine Bilirubin Negative Urine Urobilinogen 0.2 Ur Leukocyte Esterase Trace Urine WBC (Auto) 5 Urine RBC (Auto) 3 Urine Casts (Auto) 9 U Epithel Cells (Auto) 1.7 Urine Bacteria (Auto) Positive Blood Type Antibody Screen Prewarmed Antibody Srcn Antibody Identification Antigen Identification 03/09/19 03/09/19 03/09/19 16:25 16:25 16:25 WBC 18.2 H RBC 3.98 Hgb 13.0 Hct 38.3 MCV 96.2 H MCH 32.7 MCHC 34.0 RDW 12.4 Plt Count 147 MPV 7.8 Absolute Neuts (auto) 17.6 H Neutrophils % 96.5 H Neutrophils % (Manual) 77.0 Band Neutrophils % 16.0 Lymphocytes % 2.3 L Lymphocytes % (Manual) 1.0 L Monocytes % 1.1 L Monocytes % (Manual) 6 Eosinophils % 0.0 Eosinophils % (Manual) 0.0 Basophils % 0.1 Basophils % (Manual) 0.0 Myelocytes % (Man) 0 Promyelocytes % (Man) 0 Blast Cells % (Manual) 0 Nucleated RBC % 0 Metamyelocytes 0 Platelet Estimate Decreased Macrocytosis 1+ PT with INR INR PTT (Actin FS) Cancelled Anticoagulation Therapy Puncture Site ABG pH ABG pCO2 at Pt Temp ABG pO2 at Pt Temp ABG HCO3 ABG O2 Sat (Measured) ABG O2 Content ABG Base Excess Valeriano Test VBG pH POC VBG pCO2 POC VBG pO2 VBG HCO3 VBG O2 Sat (Leonid) VBG Base Excess O2 Delivery Device Oxygen Flow Rate Vent Mode Vent Rate Mechanical Rate PEEP Pressure Support Vent Sodium 137 Potassium 3.2 L Chloride 100 Carbon Dioxide 26 Anion Gap 11 BUN 35.9 H Creatinine 1.6 H Est GFR (CKD-EPI)AfAm 36.41 Est GFR (CKD-EPI)NonAf 31.42 Random Glucose 117 H Lactic Acid Calcium 8.1 L Phosphorus Magnesium Total Bilirubin 0.7 AST 26 ALT 16 Alkaline Phosphatase 64 Creatine Kinase Creatine Kinase Index CK-MB (CK-2) Troponin I 0.02 Total Protein 6.5 Albumin 3.4 Lipase Urine Color Urine Appearance Urine pH Ur Specific [place] Urine Protein Urine Glucose (UA) Urine Ketones Urine Blood Urine Nitrite Urine Bilirubin Urine Urobilinogen Ur Leukocyte Esterase Urine WBC (Auto) Urine RBC (Auto) Urine Casts (Auto) U Epithel Cells (Auto) Urine Bacteria (Auto) Blood Type Antibody Screen Prewarmed Antibody Srcn Antibody Identification Antigen Identification 03/09/19 03/09/19 03/09/19 16:25 16:25 16:25 WBC RBC Hgb Hct MCV MCH MCHC RDW Plt Count MPV Absolute Neuts (auto) Neutrophils % Neutrophils % (Manual) Band Neutrophils % Lymphocytes % Lymphocytes % (Manual) Monocytes % Monocytes % (Manual) Eosinophils % Eosinophils % (Manual) Basophils % Basophils % (Manual) Myelocytes % (Man) Promyelocytes % (Man) Blast Cells % (Manual) Nucleated RBC % Metamyelocytes Platelet Estimate Macrocytosis PT with INR INR PTT (Actin FS) Anticoagulation Therapy Puncture Site ABG pH ABG pCO2 at Pt Temp ABG pO2 at Pt Temp ABG HCO3 ABG O2 Sat (Measured) ABG O2 Content ABG Base Excess Valeriano Test VBG pH POC VBG pCO2 POC VBG pO2 VBG HCO3 VBG O2 Sat (Leonid) VBG Base Excess O2 Delivery Device Oxygen Flow Rate Vent Mode Vent Rate Mechanical Rate PEEP Pressure Support Vent Sodium Potassium Chloride Carbon Dioxide Anion Gap BUN Creatinine Est GFR (CKD-EPI)AfAm Est GFR (CKD-EPI)NonAf Random Glucose Lactic Acid Calcium Phosphorus Magnesium 1.8 Total Bilirubin AST ALT Alkaline Phosphatase Creatine Kinase Creatine Kinase Index CK-MB (CK-2) Troponin I Total Protein Albumin Lipase 45 L Urine Color Urine Appearance Urine pH Ur Specific [place] Urine Protein Urine Glucose (UA) Urine Ketones Urine Blood Urine Nitrite Urine Bilirubin Urine Urobilinogen Ur Leukocyte Esterase Urine WBC (Auto) Urine RBC (Auto) Urine Casts (Auto) U Epithel Cells (Auto) Urine Bacteria (Auto) Blood Type A POSITIVE Antibody Screen Positive Prewarmed Antibody Srcn Negative Antibody Identification Cold agg Antigen Identification A1 ANTIGEN - POSITIVE 03/09/19 03/09/19 03/10/19 16:25 18:07 05:10 WBC RBC Hgb Hct MCV MCH MCHC RDW Plt Count MPV Absolute Neuts (auto) Neutrophils % Neutrophils % (Manual) Band Neutrophils % Lymphocytes % Lymphocytes % (Manual) Monocytes % Monocytes % (Manual) Eosinophils % Eosinophils % (Manual) Basophils % Basophils % (Manual) Myelocytes % (Man) Promyelocytes % (Man) Blast Cells % (Manual) Nucleated RBC % Metamyelocytes Platelet Estimate Macrocytosis PT with INR INR PTT (Actin FS) Anticoagulation Therapy Puncture Site ABG pH ABG pCO2 at Pt Temp ABG pO2 at Pt Temp ABG HCO3 ABG O2 Sat (Measured) ABG O2 Content ABG Base Excess Valeriano Test VBG pH 7.38 POC VBG pCO2 43.2 POC VBG pO2 < 49 H VBG HCO3 24.9 VBG O2 Sat (Leonid) 34.1 L VBG Base Excess 0.2 O2 Delivery Device Oxygen Flow Rate Vent Mode Vent Rate Mechanical Rate PEEP Pressure Support Vent Sodium Potassium Chloride Carbon Dioxide Anion Gap BUN Creatinine Est GFR (CKD-EPI)AfAm Est GFR (CKD-EPI)NonAf Random Glucose Lactic Acid 4.3 H* Calcium Phosphorus Magnesium Total Bilirubin AST ALT Alkaline Phosphatase Creatine Kinase Creatine Kinase Index CK-MB (CK-2) Troponin I Total Protein Albumin Lipase Urine Color Urine Appearance Urine pH Ur Specific [place] Urine Protein Urine Glucose (UA) Urine Ketones Urine Blood Urine Nitrite Urine Bilirubin Urine Urobilinogen Ur Leukocyte Esterase Urine WBC (Auto) Urine RBC (Auto) Urine Casts (Auto) U Epithel Cells (Auto) Urine Bacteria (Auto) Blood Type A POSITIVE Antibody Screen Prewarmed Antibody Srcn Antibody Identification Antigen Identification 03/10/19 03/10/19 03/10/19 05:10 05:10 05:10 WBC 19.3 H RBC 3.60 Hgb 12.2 Hct 36.2 MCV 100.6 H MCH 33.9 H MCHC 33.7 RDW 13.1 Plt Count 46 L D MPV 9.0 D Absolute Neuts (auto) Neutrophils % Neutrophils % (Manual) Band Neutrophils % Lymphocytes % Lymphocytes % (Manual) Monocytes % Monocytes % (Manual) Eosinophils % Eosinophils % (Manual) Basophils % Basophils % (Manual) Myelocytes % (Man) Promyelocytes % (Man) Blast Cells % (Manual) Nucleated RBC % Metamyelocytes Platelet Estimate Macrocytosis PT with INR INR PTT (Actin FS) Anticoagulation Therapy Puncture Site ABG pH ABG pCO2 at Pt Temp ABG pO2 at Pt Temp ABG HCO3 ABG O2 Sat (Measured) ABG O2 Content ABG Base Excess Valeriano Test VBG pH POC VBG pCO2 POC VBG pO2 VBG HCO3 VBG O2 Sat (Leonid) VBG Base Excess O2 Delivery Device Oxygen Flow Rate Vent Mode Vent Rate Mechanical Rate PEEP Pressure Support Vent Sodium 141 Potassium 3.3 L Chloride 112 H Carbon Dioxide 16 L Anion Gap 12 BUN 33.5 H Creatinine 1.7 H Est GFR (CKD-EPI)AfAm 33.84 Est GFR (CKD-EPI)NonAf 29.20 Random Glucose 69 L Lactic Acid 5.9 H* Calcium 6.4 L* Phosphorus 4.2 Magnesium 1.6 L Total Bilirubin 2.1 H AST 314 H ALT 179 H Alkaline Phosphatase 74 Creatine Kinase Creatine Kinase Index CK-MB (CK-2) Troponin I 1.28 H* Total Protein 4.5 L Albumin 2.2 L Lipase Urine Color Urine Appearance Urine pH Ur Specific [place] Urine Protein Urine Glucose (UA) Urine Ketones Urine Blood Urine Nitrite Urine Bilirubin Urine Urobilinogen Ur Leukocyte Esterase Urine WBC (Auto) Urine RBC (Auto) Urine Casts (Auto) U Epithel Cells (Auto) Urine Bacteria (Auto) Blood Type Antibody Screen Prewarmed Antibody Srcn Antibody Identification Antigen Identification 03/10/19 03/10/19 03/10/19 08:50 09:25 12:25 WBC RBC Hgb Hct MCV MCH MCHC RDW Plt Count MPV Absolute Neuts (auto) Neutrophils % Neutrophils % (Manual) Band Neutrophils % Lymphocytes % Lymphocytes % (Manual) Monocytes % Monocytes % (Manual) Eosinophils % Eosinophils % (Manual) Basophils % Basophils % (Manual) Myelocytes % (Man) Promyelocytes % (Man) Blast Cells % (Manual) Nucleated RBC % Metamyelocytes Platelet Estimate Macrocytosis PT with INR INR PTT (Actin FS) Anticoagulation Therapy No Result Required. No Result Required. Puncture Site Right radial ABG pH 6.92 L* ABG pCO2 at Pt Temp 33.3 L ABG pO2 at Pt Temp 92 ABG HCO3 6.5 L ABG O2 Sat (Measured) 89.6 L ABG O2 Content No Result Required. ABG Base Excess -25.3 L Valeriano Test Positive VBG pH POC VBG pCO2 POC VBG pO2 VBG HCO3 VBG O2 Sat (Leonid) VBG Base Excess O2 Delivery Device No Result Required. No Result Required. Oxygen Flow Rate 100 No Result Required. Vent Mode A/c No Result Required. Vent Rate No Result Required. No Result Required. Mechanical Rate No Result Required. No Result Required. PEEP -5.0 Pressure Support Vent No Result Required. No Result Required. Sodium Potassium Chloride Carbon Dioxide Anion Gap BUN Creatinine Est GFR (CKD-EPI)AfAm Est GFR (CKD-EPI)NonAf Random Glucose Lactic Acid Calcium Phosphorus Magnesium Total Bilirubin AST ALT Alkaline Phosphatase Creatine Kinase 663 H Creatine Kinase Index 3.5 CK-MB (CK-2) 23.3 H Troponin I 5.82 H* Total Protein Albumin Lipase Urine Color Urine Appearance Urine pH Ur Specific [place] Urine Protein Urine Glucose (UA) Urine Ketones Urine Blood Urine Nitrite Urine Bilirubin Urine Urobilinogen Ur Leukocyte Esterase Urine WBC (Auto) Urine RBC (Auto) Urine Casts (Auto) U Epithel Cells (Auto) Urine Bacteria (Auto) Blood Type Antibody Screen Prewarmed Antibody Srcn Antibody Identification Antigen Identification Examination she is not responsive due to sedation Blood pressure is 100/60 heart rate is 100 HEENT she had a ETT in place Neck is supple lungs bilateral good air entry Heart is tachycardia abdomen soft Neurologically she is on vent under sedation Cardiopulmonary arrest status post Sepsis Acute MO possibly due to stress of surgery or other history At this time we will do vent management cardiac care supportive care Pulmonary consult and cardiac consult ICU management. Visit type - Emergency Visit Emergency Visit: Yes ED Registration Date: 03/09/19 Care time: The patient presented to the Emergency Department on the above date and was hospitalized for further evaluation of their emergent condition. - New Patient This patient is new to me today: Yes Date on this admission: 03/10/19 - Critical Care Critical Care patient: Yes Total Critical Care Time (in minutes): 60 Critical Care Statement: The care of this patient involved high complexity decision making to prevent further life threatening deterioration of the patient 's condition and/or to evaluate & treat vital organ system(s) failure or risk of failure. - Discharge Referral Referred to [facility] No
--- NOTE | 2019-03-10 13:11 | ECHO ---
Name: KATERINE CRUM Exam:Adult Echocardiogram Study Date: 03/10/2019 11:31 AM Age: 73 yrs Reason For Study: ACUTE CVA Height: 62 in Weight: 151 lb BSA: 1.7 m2 MMode/2D Measurements & Calculations IVSd: 0.83 cm Ao root diam: 3.8 cm LVIDd: 2.7 cm LA dimension: 2.0 cm LVIDs: 2.0 cm LVPWd: 1.0 cm LVPWs: 0.88 cm EDV(Teich): 27.5 ml ESV(Teich): 12.6 ml LVOT diam: 1.9 cm TAPSE: 1.4 cm RV S Phong: 10.4 cm/sec Doppler Measurements & Calculations MV E max phong: 35.9 cm/sec Ao V2 max: 101.7 cm/sec MV A max phong: 75.7 cm/sec Ao max P.1 mmHg MV E/A: 0.47 AI P1/2t: 629.9 msec MV dec time: 0.08 sec ALDEN(V,D): 2.2 cm2 AI max phong: 271.5 cm/sec LV V1 max P.6 mmHg AI max P.5 mmHg LV V1 max: 80.3 cm/sec AI dec slope: 126.2 cm/sec2 TR max phong: 257.7 cm/sec PA V2 max: 97.1 cm/sec TR max P.6 mmHg PA max P.8 mmHg Med Peak E' Phong: 2.8 cm/sec Med E/e': 12.7 Lat Peak E' Phong: 7.7 cm/sec Lat E/e': 4.6 Left Ventricle The left ventricular ejection fraction is normal. Ejection Fraction = 50-55%. The transmitral spectra l Doppler flow pattern is suggestive of impaired LV relaxation. The left ventricular wall motion is normal. Right Ventricle The right ventricle is mild to moderately dilated. The right ventricular systolic function is mild to moderately reduced. Atria The right atrium is moderately dilated. Mitral Valve There is mild mitral annular calcification. There is trace to mild mitral regurgitation. Tricuspid Valve There is moderate tricuspid regurgitation. Right ventricular systolic pressure is elevated at 30-40mm Hg. Assuming the RA pressure is 15 mmHg. Aortic Valve There is moderate aortic valve thickening. Mild to moderate aortic regurgitation. Pulmonic Valve Trace to mild pulmonic valvular regurgitation. Great Vessels Borderline aortic root dilatation. Pericardium/Pleura There is no pericardial effusion. Interpretation Summary There is moderate aortic valve thickening. There is moderate tricuspid regurgitation. Trace to mild pulmonic valvular regurgitation. The right atrium is moderately dilated. There is mild mitral annular calcification. Right ventricular systolic pressure is elevated at 30-40mmHg. The transmitral spectral Doppler flow pattern is suggestive of impaired LV relaxation. The left ventricular ejection fraction is normal. The right ventricle is mild to moderately dilated. Mild to moderate aortic regurgitation. Assuming the RA pressure is 15 mmHg There is trace to mild mitral regurgitation. There is no pericardial effusion. Joni Can MD 03/10/2019 01:11 PM
[2019-03-10] MEDS ORDERED: PT OWN MED DRAWER 7, Y5N ONE (13:16)
[2019-03-10] MEDS ORDERED: SODIUM BICARBONATE 8.4% 50 MEQ/50 ML VIAL IV ONE (13:17)
--- NOTE | 2019-03-10 13:33 | PN ---
Progress Note (short form) - Note Progress Note: ID consult dictated imp/reccd asked to see the patient this afternoon for gram negative sepsis 73 yo female no PMH- sister in [place]- presented to ED for RLQ pain- found to have an obstructing stone in her Right ureter she was taken for emergent cystoscopoy with right ureteroscopy and stone removal with stent placement overnight she brought to ICU postop for further management of sepsis and hypotension- she coded this am and was intubated currently on pressors and sedation fi02 100%, acidotic and hypoxemic with rising troponins blood cultures 4/4 bottles with GNR severe sepsis-gram negative s/p code renal failure thrombocytopenia secondary to sepsis +troponins- ?DE currently on vancomycin and zosyn will switch to meropenem to cover esbl organisms no history of MDRO, no PMD one dose vancomycin while awaiting final cultures f/u cultures in am overall prognosis is critical- over 45 minutes spent in the care of this critically ill 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
[2019-03-10] MEDS ORDERED: VANCOMYCIN 1 GRAM (PRE-DOCKED) 1,000 MG/250 ML BAG IVPB ONE (13:39)
[2019-03-10] MEDS ORDERED: DEXTROSE 5%-WATER 100 ML IVPB ONE (13:50)
[2019-03-10] MEDS ORDERED: MEROPENEM 1 GM VIAL (RESTRICTED TO ID) IVPB ONE (13:50)
--- NOTE | 2019-03-10 14:11 | PN ---
Progress Note (short form) - Note Progress Note: Progress Note Pulm/CCM Pt seen and examined in ICU. Pt intubated in am s/p PEA arrest with ROSC after 1 round epi. Cardiology, ID consulted. Bicarb pushes x2 and bicarb drip started for ph 6.9-7.0 2/2 metabolic /lactic acidosis i/s/o septic shock. Pt woke up, moved all extremities and followed simple commands. Currently requiring low dose Durga drip for hypotension possible d/t sedation. ECHO done with report of normal LVF, dilated RV with mild to mod TR and AR. Antib escalated to meropenem. Able to contact sister in [place] through friends/contact. Consented for central lines, art line and blood products. Active Medications Acetaminophen (Tylenol -) 650 mg PO Q6H PRN PRN Reason: PAIN LEVEL 1-5 Chlorhexidine Gluconate (Hibiclens For Decolonization -) 1 applic TP HS JERRY Sodium Chloride (Normal Saline -) 1,000 mls @ 75 mls/hr IV ASDIR JERRY Last Admin: 03/10/19 01:15 Dose: 0 mls Phenylephrine HCl 20,000 mcg/ (Sodium Chloride) 250 mls @ 75 mls/hr IVPB ASDIR JERRY; Protocol Last Titration: 03/10/19 11:30 Dose: 10 mcg/min, 7.5 mls/hr Sodium Bicarbonate 150 meq/ (Dextrose) 1,150 mls @ 50 mls/hr IVPB ONCE ONE Stop: 03/11/19 08:59 Last Admin: 03/10/19 13:31 Dose: 50 mls/hr Propofol (Diprivan -) 1,000,000 mcg in 100 mls @ 2.807 mls/hr IVPB TITR JERRY; Protocol Last Admin: 03/10/19 09:30 Dose: 20 mcg/kg/min, 2.807 mls/hr Meropenem 1 gm/ Dextrose 100 mls @ 200 mls/hr IVPB Q12H JERRY Vancomycin HCl (Vancomycin (Pre-Docked)) 1,000 mg in 250 mls @ 166.667 mls/hr IVPB ONCE ONE; Protocol Stop: 03/10/19 15:08 Mupirocin (Bactroban Ointment (For Decolonization) -) 1 applic NS BID JERRY Stop: 11/22/19 09:59 Last Admin: 03/10/19 11:29 Dose: Not Given Ondansetron HCl (Zofran Injection) 4 mg IVPUSH Q6H PRN PRN Reason: NAUSEA AND/OR VOMITING Potassium Chloride (K-Dur -) 40 meq PO DAILY JERRY Last Admin: 03/10/19 11:29 Dose: Not Given Vital Signs Period Temp Pulse Resp BP Sys/Cote Pulse Ox Last 24 Hr 07.6 F-100.6 F 59-102 16-30 63-134/43-89 94-100 Intake & Output 03/07/19 03/08/19 03/09/19 03/10/19 23:59 23:59 23:59 23:59 Intake Total 1700 2375 Output Total 500 550 Balance 1200 1825 Weight 56.699 kg 23.388 kg Exam: Gen: Orally intubated, in NAD, blue tinged extremities Neuro: RASS -1-2 Resp: Bilat diminished, no wheeze CV: S1S2, RRR, no m/r/g noted Abd: Soft, NT, ND Ext: Cool, blue tinged tips Skin: c/d/i ABG Results ABG pH 7.00 (7.35-7.45) L* 03/10/19 12:25 ABG pCO2 at Pt Temp 28.1 mmHg (35-45) L 03/10/19 12:25 ABG pO2 at Pt Temp 110 mmHg (80-100) H 03/10/19 12:25 ABG HCO3 6.6 mmol/L (22-27) L 03/10/19 12:25 ABG O2 Sat (Measured) 94.9 % (95-98) L 03/10/19 12:25 ABG O2 Content No Result Required. 03/10/19 12:25 ABG Base Excess -24.1 meq/l (-2-2) L 03/10/19 12:25 CBC,CMP WBC 19.3 K/mm3 (4.0-10.0) H 03/10/19 05:10 RBC 3.60 M/mm3 (3.60-5.2) 03/10/19 05:10 Hgb 12.2 GM/dL (10.7-15.3) 03/10/19 05:10 Hct 36.2 % (32.4-45.2) 03/10/19 05:10 MCV 100.6 fl (80-96) H 03/10/19 05:10 MCH 33.9 pg (25.7-33.7) H 03/10/19 05:10 MCHC 33.7 g/dl (32.0-36.0) 03/10/19 05:10 RDW 13.1 % (11.6-15.6) 03/10/19 05:10 Plt Count 46 K/MM3 (134-434) L D 03/10/19 05:10 MPV 9.0 fl (7.5-11.1) D 03/10/19 05:10 Absolute Neuts (auto) 17.6 K/mm3 (1.5-8.0) H 03/09/19 16:25 Neutrophils % 96.5 % (42.8-82.8) H 03/09/19 16:25 Neutrophils % (Manual) 77.0 % (42.8-82.8) 03/09/19 16:25 Band Neutrophils % 16.0 % 03/09/19 16:25 Lymphocytes % 2.3 % (8-40) L 03/09/19 16:25 Lymphocytes % (Manual) 1.0 % (8-40) L 03/09/19 16:25 Monocytes % 1.1 % (3.8-10.2) L 03/09/19 16:25 Monocytes % (Manual) 6 % (3.8-10.2) 03/09/19 16:25 Eosinophils % 0.0 % (0-4.5) 03/09/19 16:25 Eosinophils % (Manual) 0.0 % (0-4.5) 03/09/19 16:25 Basophils % 0.1 % (0-2.0) 03/09/19 16:25 Basophils % (Manual) 0.0 % (0-2.0) 03/09/19 16:25 Myelocytes % (Man) 0 % (0-2) 03/09/19 16:25 Promyelocytes % (Man) 0 % (0-2) 03/09/19 16:25 Blast Cells % (Manual) 0 % (0-0) 03/09/19 16:25 Nucleated RBC % 0 % (0-0) 03/09/19 16:25 Metamyelocytes 0 % (0-2) 03/09/19 16:25 Platelet Estimate Decreased 03/09/19 16:25 Macrocytosis 1+ 03/09/19 16:25 Sodium 141 mmol/L (136-145) 03/10/19 05:10 Potassium 3.3 mmol/L (3.5-5.1) L 03/10/19 05:10 Chloride 112 mmol/L (98-107) H 03/10/19 05:10 Carbon Dioxide 16 mmol/L (21-32) L 03/10/19 05:10 Anion Gap 12 MMOL/L (8-16) 03/10/19 05:10 BUN 33.5 mg/dL (7-18) H 03/10/19 05:10 Creatinine 1.7 mg/dL (0.55-1.3) H 03/10/19 05:10 Est GFR (CKD-EPI)AfAm 33.84 03/10/19 05:10 Est GFR (CKD-EPI)NonAf 29.20 03/10/19 05:10 Random Glucose 69 mg/dL (74-106) L 03/10/19 05:10 Lactic Acid 5.9 mmol/L (0.4-2.0) H* 03/10/19 05:10 Calcium 6.4 mg/dL (8.5-10.1) L* 03/10/19 05:10 Phosphorus 4.2 mg/dL (2.5-4.9) 03/10/19 05:10 Magnesium 1.6 mg/dL (1.8-2.4) L 03/10/19 05:10 Total Bilirubin 2.1 mg/dL (0.2-1) H 03/10/19 05:10 AST 314 U/L (15-37) H 03/10/19 05:10 ALT 179 U/L (13-61) H 03/10/19 05:10 Alkaline Phosphatase 74 U/L (45-117) 03/10/19 05:10 Creatine Kinase 663 U/L (26-192) H 03/10/19 09:25 Creatine Kinase Index 3.5 % (0.0-5.0) 03/10/19 09:25 CK-MB (CK-2) 23.3 ng/mL (0.5-3.6) H 03/10/19 09:25 Troponin I 5.82 ng/ml (0.00-0.05) H* 03/10/19 09:25 Total Protein 4.5 g/dl (6.4-8.2) L 03/10/19 05:10 Albumin 2.2 g/dl (3.4-5.0) L 03/10/19 05:10 Lipase 45 U/L (73-393) L 03/09/19 16:25 Microbiology 03/09/19 16:25 Blood - Peripheral Venous Blood Culture - Preliminary Lactose Fermenting Neg Bacilli 03/09/19 16:25 Blood - Peripheral Venous Blood Culture - Preliminary Lactose Fermenting Neg Bacilli Imaging - Results Cat Scan: Report Reviewed, Image Reviewed (EXAM: CT abdomen and pelvis with contrast DATE OF EXAM: 2019-03-09 19:34:22 Findings: Scarring and moderate atelectasis in lung bases. No pleural effusions. Right hepatic calcification. Heterogeneous liver enhancement. Gallbladder, pancreas, adrenal glands, and spleen are grossly unremarkable. *Mild right hydronephrosis due to a 3 mm calculus at or just beyond the right ureterovesical junction. Additional tiny right intrarenal calculus. No AAA. No evidence for diverticulitis, small bowel obstruction, free fluid, or free air. Appendix not seen with certainty. No secondary signs of appendicitis. Mild leiomyomatous uterus.) Problem List - Problems (1) UTI (urinary tract infection) Code(s): N39.0 - URINARY TRACT INFECTION, SITE NOT SPECIFIED (2) Bacteremia Code(s): R78.81 - BACTEREMIA (3) CORAL (acute kidney injury) Code(s): N17.9 - ACUTE KIDNEY FAILURE, UNSPECIFIED (4) Calculus of distal right ureter Code(s): N20.1 - CALCULUS OF URETER (5) Sepsis Code(s): A41.9 - SEPSIS, UNSPECIFIED ORGANISM Qualifiers: Sepsis type: sepsis due to unspecified organism Sepsis acute organ dysfunction status: unspecified Qualified Code(s): A41.9 - Sepsis, unspecified organism <Venkatesh Martinez - Last Filed: 03/10/19 02:00> - Problems (1) Postoperative cardiac arrest following non-cardiac surgery Code(s): I97.121 - POSTPROCEDURAL CARDIAC ARREST FOLLOWING OTHER SURGERY (2) Septic shock Code(s): A41.9 - SEPSIS, UNSPECIFIED ORGANISM; R65.21 - SEVERE SEPSIS WITH SEPTIC SHOCK <Joni Can - Last Filed: 03/10/19 10:26> Assessment/Plan 73 yo woman w/ GN bacteremia 2/2 UTI r/t obstructive right sided renal calculi now s/p stent placement c/c/b CORAL 2/2 obstructive uropathy and sepsis s/p Cardiac arrest this morning (PEA) -Cont phenylephrine, IV fluids for hypotension -Low threshold for central line, arterial -Bicarb drip for acidosis -Maintain core temperature. -ECHO done -Replete all electrolytes (K, Mg, Ca). -Low TV vent -Propofol for vent synchrony -Urology following -ID consulted -Escalate to meropenem for GNR bacteremia -repeat blood cultures to insure bacteremia clearing -trend lactate -renal dose medications -Monitor CBC and coags -Transfuse for Hgb<7, Plts<50, fibrinogen <150 -DVT ppx w/ SCD given hematuria post stent placement Rhona Fitzgerald, ACNP Pulm/CCM
--- NOTE | 2019-03-10 14:45 | PN ---
Progress Note (short form) - Note Progress Note: Anesthesia Post Op Note Pt s/p GA for emergency cysto stent placement for urosepsis Pt remains intubated after an PEA arrest w/ resuscitation - remains septic on IV antibx and pressors Pt monitored in ICU - no apparent anesthesia complications Danie Oneill.
[2019-03-10] MEDS: MEROPENEM 1 GM in DEXTROSE 5%-WATER 100 ML IVPB SCH (14:53)
[2019-03-10 16:49] LABS: ARTERIAL BLD GAS O2 SATURATION 97.4 % (95-98); ARTERIAL BLOOD GAS BASE EXCESS -25.4 meq/l (-2-2); ARTERIAL BLOOD GAS PCO2 26.2 mmHg (35-45); ARTERIAL BLOOD GAS pH 6.96 (7.35-7.45)
[2019-03-10 16:51] LABS: ARTERIAL BLOOD GAS PO2 158 mmHg (80-100)
[2019-03-10 16:53] LABS: ALLENS TEST POSITIVE
--- NOTE | 2019-03-10 16:53 | EKG ---
Test Reason : Blood Pressure : / mmHG Vent. Rate : 100 BPM Atrial Rate : 100 BPM P-R Int : 128 ms QRS Dur : 080 ms QT Int : 386 ms P-R-T Axes : 051 029 -15 degrees QTc Int : 497 ms NORMAL SINUS RHYTHM LOW VOLTAGE QRS NONSPECIFIC T WAVE ABNORMALITY PROLONGED QT ABNORMAL ECG WHEN COMPARED WITH ECG OF 09-MAR-2019 18:18, T WAVE INVERSION NOW EVIDENT IN ANTERIOR LEADS Confirmed by CHET REYES, GUILHERME ([id number]) on 03/10/2019 4:52:59 PM Referred By: Solo MOROCHO Confirmed By:GUILHERME ROSENBERG MD
[2019-03-10 16:56] LABS: HEMATOCRIT 36.2 % (32.4-45.2); HEMOGLOBIN 11.3 GM/dL (10.7-15.3); MCH 31.9 pg (25.7-33.7); MCHC 31.1 g/dl (32.0-36.0); MEAN CELL VOLUME 102.4 fl (80-96); MEAN PLT VOLUME 8.4 fl (7.5-11.1); PLATELET COUNT 58 K/MM3 (134-434); RBC 3.53 M/mm3 (3.60-5.2); RDW 14.1 % (11.6-15.6); WHITE BLOOD COUNT 21.4 K/mm3 (4.0-10.0)
--- NOTE | 2019-03-10 17:00 | EKG ---
Test Reason : Blood Pressure : / mmHG Vent. Rate : 098 BPM Atrial Rate : 098 BPM P-R Int : 146 ms QRS Dur : 082 ms QT Int : 374 ms P-R-T Axes : 070 038 047 degrees QTc Int : 477 ms NORMAL SINUS RHYTHM NORMAL ECG NO PREVIOUS ECGS AVAILABLE Confirmed by GUILHERME ROSENBERG MD ([id number]) on 03/10/2019 4:59:45 PM Referred By: Confirmed By:GUILHERME ROSENBERG MD
[2019-03-10] MEDS ORDERED: NOREPINEPHRINE BITARTRATE 4 MG/4 ML ML IV ONE (17:09)
[2019-03-10] MEDS ORDERED: SODIUM BICARBONATE 8.4% 50 MEQ/50 ML DISP.SYRIN IVPUSH ONE (17:10)
[2019-03-10 17:12] LABS: INR 2.89 (0.83-1.09); PROTHROMBIN TIME (PATIENT) 34.5 SEC (9.7-13.0)
[2019-03-10 17:15] LABS: ACTIVATED PTT 54.7 SECONDS (25.2-36.5)
[2019-03-10] MEDS ORDERED: TRIPLE LUMEN FLUSH 4 ML ML IVPUSH PRN (17:16)
[2019-03-10] MEDS ORDERED: PHYTONADIONE 10 MG/1 ML AMP IVPB ONE ×2 (17:19→17:45)
[2019-03-10] MEDS ORDERED: NOREPINEPHRINE BITARTRATE 8,000 MCG in DEXTROSE 5%-WATER - 492 ML IV SCH (17:30)
[2019-03-10 17:39] LABS: ALBUMIN 1.7 g/dl (3.4-5.0); BILIRUBIN,TOTAL 2.5 mg/dL (0.2-1); BLOOD UREA NITROGEN 34.9 mg/dL (7-18); TOT PROT 3.6 g/dl (6.4-8.2)
[2019-03-10 17:41] LABS: CALCIUM 6.3 mg/dL (8.5-10.1)
--- NOTE | 2019-03-10 18:14 | PROC ---
Procedure Note Procedure: Rt IJ TLC inserted for medication and fluid infusion and monitoring. Catheter was placed under sterile conditions, using US guidance and seldinger technique. Placement was confirmed by CXR. No Pneumothorax noted on CXR.
--- NOTE | 2019-03-10 18:15 | PROC ---
Procedure Note Procedure: Rt Radial Art line was placed under sterile technique using seldinger technique.
--- NOTE | 2019-03-10 18:34 | CONS ---
DATE OF CONSULTATION: DATE OF DICTATION: 03/10/2019 This is a 73-year-old woman, originally from [facility], who presents to the ER with abdominal pain for 1 day. It was in her right lower quadrant. She had had several episodes of vomiting and some chills. She had a CAT scan done in the ER that showed an obstructed right calculus. She became hypotensive, requiring IV fluid for blood pressure support. She had a leukocytosis of 18.2 with a lactic acid of 2.8 and creatinine of 1.6. She was taken for emergent cystoscopy with right ureteroscopy and stone removal with stent placement overnight. Overnight, her blood cultures turned positive for gram-negative bacillus. In the ER, she was treated with vancomycin and Zosyn, and the Zosyn was continued. This morning, she was brought to the ICU postoperative for further management of sepsis and hypotension. This morning, she had a PEA arrest and was intubated. I am asked to see her this afternoon for antibiotic management. She is currently sedated and ventilated on 100% FiO2. She apparently was responsive prior to sedation. The history is entirely from the chart. She has received several liters of fluids, is now on pressors and sedation. Past medical history is notable for hyperlipidemia and cataracts. She is status post appendectomy in the past. She has no known drug allergies. Per her sons who came to visit, she does not take any medications as an outpatient, and she does not have a regular doctor. Her review of systems at the time of admission was notable for the non-bloody vomiting and nausea, the chills, and the right lower quadrant pain. Family history is not available. She does have a history of one sister in [facility]. She has no family here in the . PHYSICAL EXAMINATION: General: She is intubated and sedated on the ventilator. She is on 100% FiO2. Vital Signs: Temperature T-max was 100.6, it was 98.3. Pulse 70. Blood pressure 70/58. Respiratory rate 30. HEENT: She is orally intubated. Lungs: Diminished breath sounds at the bases. Heart: Regular rate and rhythm. Abdomen: Soft. Genitourinary: She has bloody urine in her Luna catheter. Extremities: Her hands are dusky and her feet are cool. Her labs are notable for a white count today of 21.4, hemoglobin 11.3, platelets of 58,000. Her coagulation studies are pending, as well as her PT/PTT and fibrinogen. Her blood gas shows a pH of 7 with a pCO2 of 28 and a pO2 of 110. BUN 33, creatinine 1.7, and her last lactic acid is 5.9. Her last troponin is 5.8. Blood cultures are growing gram-negative bacillus in the original blood cultures drawn in the ER, 4 of 4 bottles, and they have been repeated early this morning and are pending. In summary, this is a 73-year-old woman in severe sepsis, gram-negative, status post PEA (pulseless electrical activity) arrest, renal failure, thrombocytopenia secondary to sepsis, with positive troponins and possible MT, currently on vancomycin and Zosyn. Would switch to meropenem to cover ESBL organisms. Will follow up cultures in the morning, 1 dose of vancomycin while pending her cultures. Given her degree of acidosis at this time, her overall prognosis is quite critical. The controlled area checker has spoken with her sister in [place]. YEIMI RIVERO M.D. [id number]
[2019-03-10] MEDS: VASOPRESSIN 50 UNITS in SODIUM CHLORIDE 97.5 ML IVPB SCH (19:25)
[2019-03-10] MEDS ORDERED: VASOPRESSIN 20 UNITS/ML VIAL IV ONE (19:46)
[2019-03-10] MEDS ORDERED: SODIUM BICARBONATE 8.4% - 150 MEQ in DEXTROSE 5%-WATER - 1,000 ML IV ONE (20:00)
[2019-03-10 20:31] LABS: ARTERIAL BLD GAS O2 SATURATION 92.8 % (95-98); ARTERIAL BLOOD GAS PCO2 31.9 mmHg (35-45)
[2019-03-10 20:32] LABS: ARTERIAL BLOOD GAS PO2 78.7 mmHg (80-100)
[2019-03-10 20:33] LABS: ALLENS TEST POSITIVE
[2019-03-10 20:35] LABS: ARTERIAL BLOOD GAS pH 7.15 (7.35-7.45)
[2019-03-10] MEDS: CHLORHEXIDINE GLUCONATE 4% CLEANSER FOR DECOLONIZATION TP SCH (21:36)
[2019-03-10 23:57] LABS: ARTERIAL BLD GAS O2 SATURATION 97.3 % (95-98); ARTERIAL BLOOD GAS BASE EXCESS -15.5 meq/l (-2-2); ARTERIAL BLOOD GAS PCO2 29.7 mmHg (35-45)
[2019-03-10 23:58] LABS: ALLENS TEST POSITIVE; ARTERIAL BLOOD GAS PO2 120 mmHg (80-100)
[2019-03-11] MEDS ORDERED: MEROPENEM 1 GM VIAL (RESTRICTED TO ID) IVPB ONE ×2 (01:31→09:14)
[2019-03-11] MEDS ORDERED: DEXTROSE 5%-WATER 100 ML IVPB ONE ×2 (01:31→09:14)
[2019-03-11] MEDS: MEROPENEM 1 GM in DEXTROSE 5%-WATER 100 ML IVPB SCH ×2 (02:25→13:26)
[2019-03-11] MEDS ORDERED: PIPERACILLIN/TAZOB 3.375 GM 3.375 GM in DEXTROSE 5%-WATER - 50 ML IVPB SCH (03:00)
[2019-03-11 06:48] LABS: ARTERIAL BLD GAS O2 SATURATION 96.1 % (95-98); ARTERIAL BLOOD GAS BASE EXCESS -10.6 meq/l (-2-2); ARTERIAL BLOOD GAS pH 7.31 (7.35-7.45)
[2019-03-11] MEDS: SODIUM CHLORIDE 1,000 ML IV SCH (07:00)
[2019-03-11 07:03] LABS: ARTERIAL BLOOD GAS PO2 91.6 mmHg (80-100)
[2019-03-11 07:03] LABS: BASO % 0.2 % (0-2.0); EOS % 13.7 % (0-4.5); HEMATOCRIT 34.8 % (32.4-45.2); LYMPH % 3.7 % (8-40); MCH 34.1 pg (25.7-33.7); MCHC 34.4 g/dl (32.0-36.0); MEAN PLT VOLUME 9.4 fl (7.5-11.1); MONO % 1.3 % (3.8-10.2); NEUT % 81.1 % (42.8-82.8); PLATELET COUNT 44 K/MM3 (134-434); RBC 3.52 M/mm3 (3.60-5.2); RDW 13.1 % (11.6-15.6); WHITE BLOOD COUNT 23.6 K/mm3 (4.0-10.0)
[2019-03-11 07:04] LABS: ALLENS TEST POSITIVE
[2019-03-11 07:33] LABS: PROTHROMBIN TIME (PATIENT) 48.6 SEC (9.7-13.0)
[2019-03-11 07:36] LABS: ACTIVATED PTT 38.7 SECONDS (25.2-36.5)
[2019-03-11 08:36] LABS: ALBUMIN 1.8 g/dl (3.4-5.0); BILIRUBIN,TOTAL 3.3 mg/dL (0.2-1); BLOOD UREA NITROGEN 43.5 mg/dL (7-18); CREATININE 2.4 mg/dL (0.55-1.3); POTASSIUM 4.3 mmol/L (3.5-5.1); TOT PROT 3.7 g/dl (6.4-8.2)
[2019-03-11 08:51] LABS: INR 4.06 (0.83-1.09)
[2019-03-11 09:09] LABS: CALCIUM 5.8 mg/dL (8.5-10.1)
[2019-03-11] MEDS ORDERED: PT OWN MED DRAWER 7, Y5N ONE (09:15)
--- NOTE | 2019-03-11 10:11 | PN ---
Progress Note (short form) - Note Progress Note: remains intubated on pressors fio2 90% sedated Vital Signs Period Temp Pulse Resp BP Sys/Cote Pulse Ox Last 24 Hr 97.8 F 62-100 14-37 75-123/20-82 cor-rrr lungs decreased bs at bases abd soft ext hands are cyanotic right greater then left, knees are mottled, feet are cold and cyanotic moran with dark urine CBC, BMP 03/11/19 06:15 03/11/19 06:00 Microbiology 03/09/19 16:10 Urine - Urine Clean Catch Urine Culture - Preliminary Lactose Fermenting Neg Bacilli 03/10/19 05:40 Blood - Peripheral Venous Blood Culture - Preliminary Lactose Fermenting Neg Bacilli 03/10/19 05:10 Blood - Peripheral Venous Blood Culture - Preliminary Lactose Fermenting Neg Bacilli 03/09/19 16:25 Blood - Peripheral Venous Blood Culture - Preliminary Lactose Fermenting Neg Bacilli 03/09/19 16:25 Blood - Peripheral Venous Blood Culture - Preliminary Lactose Fermenting Neg Bacilli cxray pending a/p 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
[2019-03-11 10:17] LABS: MACROCYTOSIS 1+; PLATELET ESTIMATE DECREASED
--- NOTE | 2019-03-11 11:36 | PN ---
Progress Note, Physician History of Present Illness: Sedated and intubated, remains on vasopressin gtt. - Current Medication List Current Medications: Active Medications Acetaminophen (Tylenol -) 650 mg PO Q6H PRN PRN Reason: PAIN LEVEL 1-5 Chlorhexidine Gluconate (Hibiclens For Decolonization -) 1 applic TP HS JERRY Last Admin: 03/10/19 21:36 Dose: 1 applic IV Flush (Triple Lumen Flush) 4 ml IVPUSH PRN PRN PRN Reason: Protocol Phenylephrine HCl 20,000 mcg/ (Sodium Chloride) 250 mls @ 75 mls/hr IVPB ASDIR JERRY; Protocol Last Titration: 03/10/19 21:20 Dose: 0 mcg/min, 0 mls/hr Propofol (Diprivan -) 1,000,000 mcg in 100 mls @ 2.807 mls/hr IVPB TITR JERRY; Protocol Last Titration: 03/11/19 07:30 Dose: 20 mcg/kg/min, 2.807 mls/hr Meropenem 1 gm/ Dextrose 100 mls @ 200 mls/hr IVPB Q12H JERRY Last Admin: 03/11/19 02:25 Dose: 200 mls/hr Norepinephrine Bitartrate 8, (000 mcg/ Dextrose) 500 mls @ 37.5 mls/hr IV TITR JERRY; Protocol Last Titration: 03/11/19 06:45 Dose: 2 mcg/min, 7.5 mls/hr Vasopressin 50 units/ Sodium (Chloride) 100 mls @ 4.8 mls/hr IVPB TITR JERRY; Protocol Last Admin: 03/10/19 19:25 Dose: 2.4 units/hr, 4.8 mls/hr Sodium Chloride (Normal Saline -) 1,000 mls @ 150 mls/hr IV ASDIR JERRY Last Admin: 03/11/19 07:00 Dose: 150 mls/hr Mupirocin (Bactroban Ointment (For Decolonization) -) 1 applic NS BID [facility] Stop: 03/15/19 09:59 Last Admin: 03/10/19 23:25 Dose: 1 applic Ondansetron HCl (Zofran Injection) 4 mg IVPUSH Q6H PRN PRN Reason: NAUSEA AND/OR VOMITING Potassium Chloride (K-Dur -) 40 meq PO DAILY JERRY Last Admin: 03/10/19 11:29 Dose: Not Given - Objective Vital Signs: Vital Signs Temperature 99.5 F 03/11/19 10:00 Pulse Rate 88 03/11/19 10:00 Respiratory Rate 35 H 03/11/19 10:00 Blood Pressure 121/80 03/11/19 10:00 O2 Sat by Pulse Oximetry (%) 95 03/10/19 01:49 Constitutional: Yes: No Distress, Calm, Thin Neck: Yes: Supple Cardiovascular: Yes: Regular Rate and Rhythm Respiratory: Yes: Intubated, Mechanically Ventilated Gastrointestinal: Yes: Soft, Hypoactive Bowel Sounds Genitourinary: Yes: Luna Present, Oliguria Extremities: Yes: Cool, Cyanosis Edema: No (Mottled) Integumentary: Yes: Other (Livedo reticularis) Labs: CBC, BMP 03/11/19 06:15 03/11/19 06:00 INR, PTT INR 4.06 (0.83-1.09) H* 03/11/19 06:15 Fibrinogen 280.0 mg/dL (238-498) 03/11/19 06:15 Problem List - Problems (1) Coagulopathy Code(s): D68.9 - COAGULATION DEFECT, UNSPECIFIED (2) CORAL (acute kidney injury) Code(s): N17.9 - ACUTE KIDNEY FAILURE, UNSPECIFIED (3) Postoperative cardiac arrest following non-cardiac surgery Code(s): I97.121 - POSTPROCEDURAL CARDIAC ARREST FOLLOWING OTHER SURGERY (4) Septic shock Code(s): A41.9 - SEPSIS, UNSPECIFIED ORGANISM; R65.21 - SEVERE SEPSIS WITH SEPTIC SHOCK (5) Thrombocytopenia Code(s): D69.6 - THROMBOCYTOPENIA, UNSPECIFIED (6) Sepsis with acute liver failure and septic shock Code(s): A41.9 - SEPSIS, UNSPECIFIED ORGANISM; R65.21 - SEVERE SEPSIS WITH SEPTIC SHOCK; K72.01 - ACUTE AND SUBACUTE HEPATIC FAILURE WITH COMA (7) Nephrolithiasis Code(s): N20.0 - CALCULUS OF KIDNEY Assessment/Plan 1. s/p PEA arrest s/p emergent cystoscopy with stone removal and stent placement ; ROSC <3 minutes. 2. 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 Demand ischemia 4. Thrombyctopenia 5. Oliguric CORAL 6. Coagulaopathy 7. Shock liver P:1. Wean pressors to maintain MAP>65 mmHg, IVF 2. Abx per C&S 3. Trend trops to doument peak, f/u echo to assess ventricular and valve fxn, monitor Plt, coagulopathy, renal fxn and urine output, LFTs 4. Poor prognosis
[2019-03-11] MEDS: PHENYLEPHRINE HCL 20,000 MCG in SODIUM CHLORIDE 248 ML IVPB SCH (11:40)
[2019-03-11] MEDS: POTASSIUM CHLORIDE TABS 20 MEQ TABLET.ER (FP) PO SCH (11:40)
[2019-03-11] MEDS: VASOPRESSIN 50 UNITS in SODIUM CHLORIDE 97.5 ML IVPB SCH (12:02)
--- NOTE | 2019-03-11 13:07 | PN ---
Teaching Attending Note Name of Resident: Garland Mckoy ATTENDING PHYSICIAN STATEMENT I saw and evaluated the patient. I reviewed the resident's note and discussed the case with the resident. I agree with the resident's findings and plan as documented. SUBJECTIVE: Patient seen and examined in ICU. Intubated and sedated. AC Mode of vent. Low dose Vasopressin and NE for hemodynamic support. Mottling in the LE and UE (most significant in the ROSSANA) noted. Progressive MOF. Intake & Output 03/08/19 03/09/19 03/10/19 03/11/19 23:59 23:59 23:59 23:59 Intake Total 1700 7475 1870 Output Total 500 550 85 Balance 1200 6925 1785 Weight 125 lb 114 lb 6.719 oz 146 lb 2.664 oz Last Vital Signs Temp Pulse Resp BP Pulse Ox 99.5 F 85 35 H 107/69 95 03/11/19 10:00 03/11/19 12:02 03/11/19 11:00 03/11/19 12:02 03/10/19 01:49 Active Medications Acetaminophen (Tylenol -) 650 mg PO Q6H PRN PRN Reason: PAIN LEVEL 1-5 Chlorhexidine Gluconate (Hibiclens For Decolonization -) 1 applic TP HS JERRY Last Admin: 03/10/19 21:36 Dose: 1 applic IV Flush (Triple Lumen Flush) 4 ml IVPUSH PRN PRN PRN Reason: Protocol Propofol (Diprivan -) 1,000,000 mcg in 100 mls @ 2.807 mls/hr IVPB TITR JERRY; Protocol Last Titration: 03/11/19 07:30 Dose: 20 mcg/kg/min, 2.807 mls/hr Meropenem 1 gm/ Dextrose 100 mls @ 200 mls/hr IVPB Q12H JERRY Last Admin: 03/11/19 02:25 Dose: 200 mls/hr Vasopressin 50 units/ Sodium (Chloride) 100 mls @ 4.8 mls/hr IVPB TITR JERRY; Protocol Last Admin: 03/11/19 12:02 Dose: 2.4 units/hr, 4.8 mls/hr Sodium Chloride (Normal Saline -) 1,000 mls @ 150 mls/hr IV ASDIR JERRY Last Admin: 03/11/19 07:00 Dose: 150 mls/hr Mupirocin (Bactroban Ointment (For Decolonization) -) 1 applic NS BID JERRY Stop: 03/15/19 09:59 Last Admin: 03/10/19 23:25 Dose: 1 applic Ondansetron HCl (Zofran Injection) 4 mg IVPUSH Q6H PRN PRN Reason: NAUSEA AND/OR VOMITING Phytonadione (Aqua Mephyton Injection -) 10 mg IVPB ONCE ONE Stop: 03/11/19 12:32 Gen: Intubated and sedated, (+) Mottling HEENT: (-) Pallor Resp: Vented, scattered bilateral rhonchi, no wheeze CV: S1S2, RRR, no m/r/g noted Abd: Soft, NT, ND Ext: (+) mottling, (-) edema Neuro: sedated Laboratory Results - last 24 hr 03/10/19 03/10/19 03/10/19 12:25 16:20 16:20 WBC 21.4 H RBC 3.53 L Hgb 11.3 Hct 36.2 MCV 102.4 H MCH 31.9 MCHC 31.1 L RDW 14.1 Plt Count 58 L D MPV 8.4 Absolute Neuts (auto) Neutrophils % Neutrophils % (Manual) Band Neutrophils % Lymphocytes % Lymphocytes % (Manual) Monocytes % Monocytes % (Manual) Eosinophils % Eosinophils % (Manual) Basophils % Basophils % (Manual) Myelocytes % (Man) Promyelocytes % (Man) Blast Cells % (Manual) Nucleated RBC % Metamyelocytes Platelet Estimate Macrocytosis PT with INR INR PTT (Actin FS) Fibrinogen D-Dimer Anticoagulation Therapy Puncture Site Left radial ABG pH 7.00 L* ABG pCO2 at Pt Temp 28.1 L ABG pO2 at Pt Temp 110 H ABG HCO3 6.6 L ABG O2 Sat (Measured) 94.9 L ABG O2 Content No Result Required. ABG Base Excess -24.1 L Valeriano Test Positive O2 Delivery Device Oxygen Flow Rate No Vent Mode Vent Rate Mechanical Rate PEEP Pressure Support Vent Sodium 140 Potassium 5.0 Chloride 110 H Carbon Dioxide 9 L Anion Gap 21 H BUN 34.9 H Creatinine 2.0 H Est GFR (CKD-EPI)AfAm 27.80 Est GFR (CKD-EPI)NonAf 23.99 Random Glucose 88 Lactic Acid Calcium 6.3 L* Total Bilirubin 2.5 H AST 544 H ALT 268 H Alkaline Phosphatase 85 Creatine Kinase 1637 H Creatine Kinase Index 3.1 CK-MB (CK-2) 52.0 H Troponin I 18.70 H* Total Protein 3.6 L Albumin 1.7 L Random Vancomycin 03/10/19 03/10/19 03/10/19 16:20 16:20 16:20 WBC RBC Hgb Hct MCV MCH MCHC RDW Plt Count MPV Absolute Neuts (auto) Neutrophils % Neutrophils % (Manual) Band Neutrophils % Lymphocytes % Lymphocytes % (Manual) Monocytes % Monocytes % (Manual) Eosinophils % Eosinophils % (Manual) Basophils % Basophils % (Manual) Myelocytes % (Man) Promyelocytes % (Man) Blast Cells % (Manual) Nucleated RBC % Metamyelocytes Platelet Estimate Macrocytosis PT with INR 34.50 H INR 2.89 H PTT (Actin FS) 54.7 H Fibrinogen 298.0 D-Dimer Anticoagulation Therapy Puncture Site ABG pH ABG pCO2 at Pt Temp ABG pO2 at Pt Temp ABG HCO3 ABG O2 Sat (Measured) ABG O2 Content ABG Base Excess Valeriano Test O2 Delivery Device Oxygen Flow Rate Vent Mode Vent Rate Mechanical Rate PEEP Pressure Support Vent Sodium Potassium Chloride Carbon Dioxide Anion Gap BUN Creatinine Est GFR (CKD-EPI)AfAm Est GFR (CKD-EPI)NonAf Random Glucose Lactic Acid 15.0 H* Calcium Total Bilirubin AST ALT Alkaline Phosphatase Creatine Kinase Creatine Kinase Index CK-MB (CK-2) Troponin I Total Protein Albumin Random Vancomycin 03/10/19 03/10/19 03/10/19 16:30 20:20 23:45 WBC RBC Hgb Hct MCV MCH MCHC RDW Plt Count MPV Absolute Neuts (auto) Neutrophils % Neutrophils % (Manual) Band Neutrophils % Lymphocytes % Lymphocytes % (Manual) Monocytes % Monocytes % (Manual) Eosinophils % Eosinophils % (Manual) Basophils % Basophils % (Manual) Myelocytes % (Man) Promyelocytes % (Man) Blast Cells % (Manual) Nucleated RBC % Metamyelocytes Platelet Estimate Macrocytosis PT with INR INR PTT (Actin FS) Fibrinogen D-Dimer Anticoagulation Therapy No Result Required. No Result Required. No Result Required. Puncture Site Arterial line Arterial line Arterial line ABG pH 6.96 L* 7.15 L* 7.20 L ABG pCO2 at Pt Temp 26.2 L 31.9 L 29.7 L ABG pO2 at Pt Temp 158 H 78.7 L 120 H ABG HCO3 5.6 L 10.7 L 11.2 L ABG O2 Sat (Measured) 97.4 92.8 L 97.3 ABG O2 Content 97.4 92.8 97.3 ABG Base Excess -25.4 L -17.0 L -15.5 L Valeriano Test Positive Positive Positive O2 Delivery Device Ge vent Vent Vent Oxygen Flow Rate 100% 100 100% Vent Mode Ak A/c A/c Vent Rate 20 20 20 Mechanical Rate No Result Required. No Result Required. No Result Required. PEEP 7.0 7.0 10.0 Pressure Support Vent 350 No Result Required. 350 Sodium Potassium Chloride Carbon Dioxide Anion Gap BUN Creatinine Est GFR (CKD-EPI)AfAm Est GFR (CKD-EPI)NonAf Random Glucose Lactic Acid Calcium Total Bilirubin AST ALT Alkaline Phosphatase Creatine Kinase Creatine Kinase Index CK-MB (CK-2) Troponin I Total Protein Albumin Random Vancomycin 03/11/19 03/11/19 03/11/19 06:00 06:15 06:15 WBC 23.6 H RBC 3.52 L Hgb 12.0 Hct 34.8 MCV 99.0 H MCH 34.1 H MCHC 34.4 RDW 13.1 Plt Count 44 L D MPV 9.4 D Absolute Neuts (auto) 19.2 H Neutrophils % 81.1 Neutrophils % (Manual) 84.7 H Band Neutrophils % 7.2 Lymphocytes % 3.7 L D Lymphocytes % (Manual) 4.1 L D Monocytes % 1.3 L Monocytes % (Manual) 2 L Eosinophils % 13.7 H D Eosinophils % (Manual) 2.0 D Basophils % 0.2 Basophils % (Manual) 0.0 Myelocytes % (Man) 0 Promyelocytes % (Man) 0 Blast Cells % (Manual) 0 Nucleated RBC % 0 Metamyelocytes 0 Platelet Estimate Decreased Macrocytosis 1+ PT with INR INR PTT (Actin FS) Fibrinogen D-Dimer Anticoagulation Therapy Puncture Site ABG pH ABG pCO2 at Pt Temp ABG pO2 at Pt Temp ABG HCO3 ABG O2 Sat (Measured) ABG O2 Content ABG Base Excess Valeriano Test O2 Delivery Device Oxygen Flow Rate Vent Mode Vent Rate Mechanical Rate PEEP Pressure Support Vent Sodium 141 Potassium 4.3 Chloride 104 Carbon Dioxide 17 L Anion Gap 19 H BUN 43.5 H Creatinine 2.4 H Est GFR (CKD-EPI)AfAm 22.30 Est GFR (CKD-EPI)NonAf 19.24 Random Glucose 150 H Lactic Acid Calcium 5.8 L* Total Bilirubin 3.3 H AST 5125 H ALT 2524 H Alkaline Phosphatase 128 H Creatine Kinase 5142 H Creatine Kinase Index 2.1 CK-MB (CK-2) 112.8 H Troponin I 16.10 H* Total Protein 3.7 L Albumin 1.8 L Random Vancomycin 18.6 03/11/19 03/11/19 03/11/19 06:15 06:15 06:15 WBC RBC Hgb Hct MCV MCH MCHC RDW Plt Count MPV Absolute Neuts (auto) Neutrophils % Neutrophils % (Manual) Band Neutrophils % Lymphocytes % Lymphocytes % (Manual) Monocytes % Monocytes % (Manual) Eosinophils % Eosinophils % (Manual) Basophils % Basophils % (Manual) Myelocytes % (Man) Promyelocytes % (Man) Blast Cells % (Manual) Nucleated RBC % Metamyelocytes Platelet Estimate Macrocytosis PT with INR 48.60 H INR 4.06 H* PTT (Actin FS) 38.7 H Fibrinogen 280.0 D-Dimer Anticoagulation Therapy Puncture Site ABG pH ABG pCO2 at Pt Temp ABG pO2 at Pt Temp ABG HCO3 ABG O2 Sat (Measured) ABG O2 Content ABG Base Excess Valeriano Test O2 Delivery Device Oxygen Flow Rate Vent Mode Vent Rate Mechanical Rate PEEP Pressure Support Vent Sodium Potassium Chloride Carbon Dioxide Anion Gap BUN Creatinine Est GFR (CKD-EPI)AfAm Est GFR (CKD-EPI)NonAf Random Glucose Lactic Acid 12.8 H* Calcium Total Bilirubin AST ALT Alkaline Phosphatase Creatine Kinase Creatine Kinase Index CK-MB (CK-2) Troponin I Total Protein Albumin Random Vancomycin 03/11/19 03/11/19 06:15 06:20 WBC RBC Hgb Hct MCV MCH MCHC RDW Plt Count MPV Absolute Neuts (auto) Neutrophils % Neutrophils % (Manual) Band Neutrophils % Lymphocytes % Lymphocytes % (Manual) Monocytes % Monocytes % (Manual) Eosinophils % Eosinophils % (Manual) Basophils % Basophils % (Manual) Myelocytes % (Man) Promyelocytes % (Man) Blast Cells % (Manual) Nucleated RBC % Metamyelocytes Platelet Estimate Macrocytosis PT with INR INR PTT (Actin FS) Fibrinogen D-Dimer 30644 H Anticoagulation Therapy No Result Required. Puncture Site Arterial line ABG pH 7.31 L ABG pCO2 at Pt Temp 29.0 L ABG pO2 at Pt Temp 91.6 ABG HCO3 14.2 L ABG O2 Sat (Measured) 96.1 ABG O2 Content No Result Required. ABG Base Excess -10.6 L Valeriano Test Positive O2 Delivery Device Vent Oxygen Flow Rate 90% Vent Mode A/c Vent Rate 20 Mechanical Rate No Result Required. PEEP 10.0 Pressure Support Vent 350 Sodium Potassium Chloride Carbon Dioxide Anion Gap BUN Creatinine Est GFR (CKD-EPI)AfAm Est GFR (CKD-EPI)NonAf Random Glucose Lactic Acid Calcium Total Bilirubin AST ALT Alkaline Phosphatase Creatine Kinase Creatine Kinase Index CK-MB (CK-2) Troponin I Total Protein Albumin Random Vancomycin Problem List - Problems (1) UTI (urinary tract infection) Code(s): N39.0 - URINARY TRACT INFECTION, SITE NOT SPECIFIED (2) Bacteremia Code(s): R78.81 - BACTEREMIA (3) CORAL (acute kidney injury) Code(s): N17.9 - ACUTE KIDNEY FAILURE, UNSPECIFIED (4) Calculus of distal right ureter Code(s): N20.1 - CALCULUS OF URETER (5) Sepsis Code(s): A41.9 - SEPSIS, UNSPECIFIED ORGANISM Qualifiers: Sepsis type: sepsis due to unspecified organism Sepsis acute organ dysfunction status: unspecified Qualified Code(s): A41.9 - Sepsis, unspecified organism (6) Postoperative cardiac arrest following non-cardiac surgery Code(s): I97.121 - POSTPROCEDURAL CARDIAC ARREST FOLLOWING OTHER SURGERY (7) Septic shock Code(s): A41.9 - SEPSIS, UNSPECIFIED ORGANISM; R65.21 - SEVERE SEPSIS WITH SEPTIC SHOCK Assessment/Plan MOF GN Bacteremia due to source Right renal obstructive calculi S/P stent placement CORAL S/P PEA Arrest Coagulopathy due to MOF / Sepsis AC Mode of vent IVF DC Arterial line Place lines of demarcation for ischemia Strict I & O Pressors for MAP < 65, wean NE first Replete electrolytes Propofol for vent synchrony ABX Per ID Normal transfusion thresholds Correct coagulopathy Overall prognosis appears grave. Dr Watson Critical care time spent in reviewing chart, evaluating patient and formulating plan - 36 minutes.
[2019-03-11] MEDS ORDERED: PHYTONADIONE 10 MG/1 ML AMP ONE (13:19)
[2019-03-11] MEDS ORDERED: PHYTONADIONE 10 MG/1 ML AMP IVPB ONE (13:30)
--- NOTE | 2019-03-11 13:47 | PN ---
Physical Exam: SUBJECTIVE: Patient seen and examined at bedside morning rounds. Remains intubated and sedated s/p PEA arrest with ROSC after 1 round epi yesterday morning. Cardiology , ID consulted. Bicarb pushes x2 and bicarb drip started for ph 6.9-7.0 2/2 metabolic /lactic acidosis i/s/o septic shock. Currently requiring Propofol 20mcg, vasopressin 2.4, IVF 150, for hypotension. Arterial line in L radial artery. Patient with 90% O2 at rate of 20, 60L/min, PEEP 10, Pressure Support 350ml. Pressures were below 100SBP first thing this morning. Plan to discontinue vasopressin due to periopheral cyanosis / mottling noted overnight. ECHO done with report of normal LVF, dilated RV with mild to mod TR and AR. Antib escalated to meropenem. Able to contact sister in [place] through friends/contact. Consented for central lines, art line and blood products. Spoke with "Family quality control representative" Khanh on the phone this morning, plan to come by around 4PM and would like to use the internal audit senior manager phone for GOC discussion with patient's sister. Khanh Work Number: [phone]. Rt IJ and RT Arterial line placed over the weekend. OBJECTIVE: Vital Signs Period Temp Pulse Resp BP Sys/Cote Pulse Ox Last 24 Hr 97.8 F-99.5 F 62-99 14-37 75-125/20-80 GENERAL: Intubated and sedated, peripheral cyanosis HEAD: Normal with no signs of trauma. EYES: PERRL, extraocular movements intact, sclera anicteric, conjunctiva clear. No ptosis. ENT: Ears normal, nares patent, oropharynx clear without exudates, moist mucous membranes. NECK: Trachea midline, full range of motion, supple. LUNGS: Vented, bilateral breath sounds, scattered rhonchi, no wheezes or rales. HEART: Regular rate and rhythm, S1, S2 without murmur, rub or gallop. ABDOMEN: Soft, nontender, nondistended, normoactive bowel sounds, no guarding, no rebound, no hepatosplenomegaly, no masses. EXTREMITIES: 2+ pulses, warm, well-perfused, no edema. NEUROLOGICAL: Sedated SKIN: Peripheral cyanosis, mottling, warm, dry, normal turgor, no rashes or lesions noted Laboratory Results - last 24 hr 03/10/19 03/10/19 03/10/19 16:20 16:20 16:20 WBC 21.4 H RBC 3.53 L Hgb 11.3 Hct 36.2 MCV 102.4 H MCH 31.9 MCHC 31.1 L RDW 14.1 Plt Count 58 L D MPV 8.4 Absolute Neuts (auto) Neutrophils % Neutrophils % (Manual) Band Neutrophils % Lymphocytes % Lymphocytes % (Manual) Monocytes % Monocytes % (Manual) Eosinophils % Eosinophils % (Manual) Basophils % Basophils % (Manual) Myelocytes % (Man) Promyelocytes % (Man) Blast Cells % (Manual) Nucleated RBC % Metamyelocytes Platelet Estimate Macrocytosis PT with INR INR PTT (Actin FS) Fibrinogen D-Dimer Anticoagulation Therapy Puncture Site ABG pH ABG pCO2 at Pt Temp ABG pO2 at Pt Temp ABG HCO3 ABG O2 Sat (Measured) ABG O2 Content ABG Base Excess Valeriano Test O2 Delivery Device Oxygen Flow Rate Vent Mode Vent Rate Mechanical Rate PEEP Pressure Support Vent Sodium 140 Potassium 5.0 Chloride 110 H Carbon Dioxide 9 L Anion Gap 21 H BUN 34.9 H Creatinine 2.0 H Est GFR (CKD-EPI)AfAm 27.80 Est GFR (CKD-EPI)NonAf 23.99 Random Glucose 88 Lactic Acid 15.0 H* Calcium 6.3 L* Total Bilirubin 2.5 H AST 544 H ALT 268 H Alkaline Phosphatase 85 Creatine Kinase 1637 H Creatine Kinase Index 3.1 CK-MB (CK-2) 52.0 H Troponin I 18.70 H* Total Protein 3.6 L Albumin 1.7 L Random Vancomycin 03/10/19 03/10/19 03/10/19 16:20 16:20 16:30 WBC RBC Hgb Hct MCV MCH MCHC RDW Plt Count MPV Absolute Neuts (auto) Neutrophils % Neutrophils % (Manual) Band Neutrophils % Lymphocytes % Lymphocytes % (Manual) Monocytes % Monocytes % (Manual) Eosinophils % Eosinophils % (Manual) Basophils % Basophils % (Manual) Myelocytes % (Man) Promyelocytes % (Man) Blast Cells % (Manual) Nucleated RBC % Metamyelocytes Platelet Estimate Macrocytosis PT with INR 34.50 H INR 2.89 H PTT (Actin FS) 54.7 H Fibrinogen 298.0 D-Dimer Anticoagulation Therapy No Result Required. Puncture Site Arterial line ABG pH 6.96 L* ABG pCO2 at Pt Temp 26.2 L ABG pO2 at Pt Temp 158 H ABG HCO3 5.6 L ABG O2 Sat (Measured) 97.4 ABG O2 Content 97.4 ABG Base Excess -25.4 L Valeriano Test Positive O2 Delivery Device Ge vent Oxygen Flow Rate 100% Vent Mode Ak Vent Rate 20 Mechanical Rate No Result Required. PEEP 7.0 Pressure Support Vent 350 Sodium Potassium Chloride Carbon Dioxide Anion Gap BUN Creatinine Est GFR (CKD-EPI)AfAm Est GFR (CKD-EPI)NonAf Random Glucose Lactic Acid Calcium Total Bilirubin AST ALT Alkaline Phosphatase Creatine Kinase Creatine Kinase Index CK-MB (CK-2) Troponin I Total Protein Albumin Random Vancomycin 03/10/19 03/10/19 03/11/19 20:20 23:45 06:00 WBC RBC Hgb Hct MCV MCH MCHC RDW Plt Count MPV Absolute Neuts (auto) Neutrophils % Neutrophils % (Manual) Band Neutrophils % Lymphocytes % Lymphocytes % (Manual) Monocytes % Monocytes % (Manual) Eosinophils % Eosinophils % (Manual) Basophils % Basophils % (Manual) Myelocytes % (Man) Promyelocytes % (Man) Blast Cells % (Manual) Nucleated RBC % Metamyelocytes Platelet Estimate Macrocytosis PT with INR INR PTT (Actin FS) Fibrinogen D-Dimer Anticoagulation Therapy No Result Required. No Result Required. Puncture Site Arterial line Arterial line ABG pH 7.15 L* 7.20 L ABG pCO2 at Pt Temp 31.9 L 29.7 L ABG pO2 at Pt Temp 78.7 L 120 H ABG HCO3 10.7 L 11.2 L ABG O2 Sat (Measured) 92.8 L 97.3 ABG O2 Content 92.8 97.3 ABG Base Excess -17.0 L -15.5 L Valeriano Test Positive Positive O2 Delivery Device Vent Vent Oxygen Flow Rate 100 100% Vent Mode A/c A/c Vent Rate 20 20 Mechanical Rate No Result Required. No Result Required. PEEP 7.0 10.0 Pressure Support Vent No Result Required. 350 Sodium 141 Potassium 4.3 Chloride 104 Carbon Dioxide 17 L Anion Gap 19 H BUN 43.5 H Creatinine 2.4 H Est GFR (CKD-EPI)AfAm 22.30 Est GFR (CKD-EPI)NonAf 19.24 Random Glucose 150 H Lactic Acid Calcium 5.8 L* Total Bilirubin 3.3 H AST 5125 H ALT 2524 H Alkaline Phosphatase 128 H Creatine Kinase 5142 H Creatine Kinase Index 2.1 CK-MB (CK-2) 112.8 H Troponin I 16.10 H* Total Protein 3.7 L Albumin 1.8 L Random Vancomycin 03/11/19 03/11/19 03/11/19 06:15 06:15 06:15 WBC 23.6 H RBC 3.52 L Hgb 12.0 Hct 34.8 MCV 99.0 H MCH 34.1 H MCHC 34.4 RDW 13.1 Plt Count 44 L D MPV 9.4 D Absolute Neuts (auto) 19.2 H Neutrophils % 81.1 Neutrophils % (Manual) 84.7 H Band Neutrophils % 7.2 Lymphocytes % 3.7 L D Lymphocytes % (Manual) 4.1 L D Monocytes % 1.3 L Monocytes % (Manual) 2 L Eosinophils % 13.7 H D Eosinophils % (Manual) 2.0 D Basophils % 0.2 Basophils % (Manual) 0.0 Myelocytes % (Man) 0 Promyelocytes % (Man) 0 Blast Cells % (Manual) 0 Nucleated RBC % 0 Metamyelocytes 0 Platelet Estimate Decreased Macrocytosis 1+ PT with INR 48.60 H INR 4.06 H* PTT (Actin FS) 38.7 H Fibrinogen D-Dimer Anticoagulation Therapy Puncture Site ABG pH ABG pCO2 at Pt Temp ABG pO2 at Pt Temp ABG HCO3 ABG O2 Sat (Measured) ABG O2 Content ABG Base Excess Valeriano Test O2 Delivery Device Oxygen Flow Rate Vent Mode Vent Rate Mechanical Rate PEEP Pressure Support Vent Sodium Potassium Chloride Carbon Dioxide Anion Gap BUN Creatinine Est GFR (CKD-EPI)AfAm Est GFR (CKD-EPI)NonAf Random Glucose Lactic Acid Calcium Total Bilirubin AST ALT Alkaline Phosphatase Creatine Kinase Creatine Kinase Index CK-MB (CK-2) Troponin I Total Protein Albumin Random Vancomycin 18.6 03/11/19 03/11/19 03/11/19 06:15 06:15 06:15 WBC RBC Hgb Hct MCV MCH MCHC RDW Plt Count MPV Absolute Neuts (auto) Neutrophils % Neutrophils % (Manual) Band Neutrophils % Lymphocytes % Lymphocytes % (Manual) Monocytes % Monocytes % (Manual) Eosinophils % Eosinophils % (Manual) Basophils % Basophils % (Manual) Myelocytes % (Man) Promyelocytes % (Man) Blast Cells % (Manual) Nucleated RBC % Metamyelocytes Platelet Estimate Macrocytosis PT with INR INR PTT (Actin FS) Fibrinogen 280.0 D-Dimer 22007 H Anticoagulation Therapy Puncture Site ABG pH ABG pCO2 at Pt Temp ABG pO2 at Pt Temp ABG HCO3 ABG O2 Sat (Measured) ABG O2 Content ABG Base Excess Valeriano Test O2 Delivery Device Oxygen Flow Rate Vent Mode Vent Rate Mechanical Rate PEEP Pressure Support Vent Sodium Potassium Chloride Carbon Dioxide Anion Gap BUN Creatinine Est GFR (CKD-EPI)AfAm Est GFR (CKD-EPI)NonAf Random Glucose Lactic Acid 12.8 H* Calcium Total Bilirubin AST ALT Alkaline Phosphatase Creatine Kinase Creatine Kinase Index CK-MB (CK-2) Troponin I Total Protein Albumin Random Vancomycin 03/11/19 06:20 WBC RBC Hgb Hct MCV MCH MCHC RDW Plt Count MPV Absolute Neuts (auto) Neutrophils % Neutrophils % (Manual) Band Neutrophils % Lymphocytes % Lymphocytes % (Manual) Monocytes % Monocytes % (Manual) Eosinophils % Eosinophils % (Manual) Basophils % Basophils % (Manual) Myelocytes % (Man) Promyelocytes % (Man) Blast Cells % (Manual) Nucleated RBC % Metamyelocytes Platelet Estimate Macrocytosis PT with INR INR PTT (Actin FS) Fibrinogen D-Dimer Anticoagulation Therapy No Result Required. Puncture Site Arterial line ABG pH 7.31 L ABG pCO2 at Pt Temp 29.0 L ABG pO2 at Pt Temp 91.6 ABG HCO3 14.2 L ABG O2 Sat (Measured) 96.1 ABG O2 Content No Result Required. ABG Base Excess -10.6 L Valeriano Test Positive O2 Delivery Device Vent Oxygen Flow Rate 90% Vent Mode A/c Vent Rate 20 Mechanical Rate No Result Required. PEEP 10.0 Pressure Support Vent 350 Sodium Potassium Chloride Carbon Dioxide Anion Gap BUN Creatinine Est GFR (CKD-EPI)AfAm Est GFR (CKD-EPI)NonAf Random Glucose Lactic Acid Calcium Total Bilirubin AST ALT Alkaline Phosphatase Creatine Kinase Creatine Kinase Index CK-MB (CK-2) Troponin I Total Protein Albumin Random Vancomycin Active Medications Generic Name Dose Route Start Last Admin Trade Name Freq PRN Reason Stop Dose Admin Acetaminophen 650 mg 03/10/19 00:56 Tylenol - PO Q6H PRN PAIN LEVEL 1-5 Chlorhexidine Gluconate 1 applic 03/10/19 22:00 03/10/19 21:36 Hibiclens For Decolonization - TP 1 applic HS JERRY Administration IV Flush 4 ml 03/10/19 17:16 Triple Lumen Flush IVPUSH PRN PRN Protocol Propofol 1,000,000 mcg in 100 mls @ 2.807 mls/hr 03/10/19 11:45 03/11/19 07: 30 Diprivan - IVPB 20 mcg/kg/min TITR JERRY 2.807 mls/hr Titration Protocol 20 MCG/KG/MIN Meropenem 1 gm/ Dextrose 100 mls @ 200 mls/hr 03/10/19 14:00 03/11/19 13:26 IVPB 200 mls/hr Q12H JERRY Administration Vasopressin 50 units/ Sodium 100 mls @ 4.8 mls/hr 03/10/19 19:15 03/11/19 12: 02 Chloride IVPB 2.4 units/hr TITR JERRY 4.8 mls/hr Administration Protocol 2.4 UNITS/HR Sodium Chloride 1,000 mls @ 150 mls/hr 03/11/19 07:00 03/11/19 07:00 Normal Saline - IV 150 mls/hr ASDIR JERRY Administration Mupirocin 1 applic 03/10/19 10:00 03/10/19 23:25 Bactroban Ointment (For Decolonization) - NS 03/15/19 09:59 1 applic BID JERRY Administration Ondansetron HCl 4 mg 03/10/19 00:56 Zofran Injection IVPUSH Q6H PRN NAUSEA AND/OR VOMITING ASSESSMENT/PLAN: 73yo F with PMH HLD and Cataracts presenting with sepsis, hydronephrosis, R ureteral stone, now s/p stenting and removal. S/p PEA arrest 02/07 AM requiring one round of epi. Cultures grew GNR, 16% bandemia, Lactate mac 15, pH up- trending 6.9 > 7.2 > 7.3. Required 2L IVF in the OR, transferred to ICU for management of septic shock. Course c/b peripheral cyanosis on pressors, multi- organ failure, GNR bacteremia due to urosepsis, now with coagulopathy due to MOF /Sepsis. #CV - S/p PEA arrest 03/10, overnight development of peripheral cyanosis, Troponinemia, possible demand related [place] -D/c Arterial line -Check CVP -Maintain MAP >65 -Discontinue Levophed -Demarcated ischemic lines on bilateral UE #Pulm - Intubated, AC mode, settings as above -Continue to monitor ventilation / saturation -Monitor vitals #Renal - s/p stent placement, CORAL, gross hematuria -Trend lytes, replete as necessary -Strict I&Os -Trend Cr -IVF as tolerated #GI - LFT derangements in setting of hypoperfusion, sepsis, MOF -Trend LFTs -Avoid hepatotoxic medications #Heme/Onc - coagulopathic likely 2/2 sepsis / MOF -Trend Plts/Coags -Vitamin K 10 -FFP x2 -Transfuse as appropriate #ID - GNR bacteremia, on broad spectrum abx -Continue Meropenem -Appreciate ID recs #[id number] #Code Status - Pending discussion with sister in [place] Visit type - Emergency Visit Emergency Visit: Yes ED Registration Date: 03/09/19 Care time: The patient presented to the Emergency Department on the above date and was hospitalized for further evaluation of their emergent condition. - New Patient This patient is new to me today: Yes Date on this admission: 03/11/19 - Critical Care Critical Care patient: Yes Total Critical Care Time (in minutes): 36 Critical Care Statement: The care of this patient involved high complexity decision making to prevent further life threatening deterioration of the patient 's condition and/or to evaluate & treat vital organ system(s) failure or risk of failure. ATTENDING PHYSICIAN STATEMENT I saw and evaluated the patient. I reviewed the resident's note and discussed the case with the resident. I agree with the resident's findings and plan as documented. SUBJECTIVE: OBJECTIVE: ASSESSMENT AND PLAN:
[2019-03-11 13:56] LABS: BASO % 0.2 % (0-2.0); HEMATOCRIT 35.9 % (32.4-45.2); HEMOGLOBIN 11.9 GM/dL (10.7-15.3); LYMPH % 2.6 % (8-40); MCHC 33.2 g/dl (32.0-36.0); MEAN CELL VOLUME 96.3 fl (80-96); MEAN PLT VOLUME 10.4 fl (7.5-11.1); NEUT % 85.2 % (42.8-82.8); RBC 3.73 M/mm3 (3.60-5.2); WHITE BLOOD COUNT 24.1 K/mm3 (4.0-10.0)
[2019-03-11 14:05] LABS: PLATELET COUNT 35 K/MM3 (134-434)
[2019-03-11 14:27] LABS: MACROCYTOSIS 1+; PLATELET ESTIMATE DECREASED
--- NOTE | 2019-03-11 14:33 | PN ---
Progress Note (short form) - Note Progress Note: POD 1 from ureteral stenting for a septic stone still on pressors. Fever curve improved however she continues to have high lactic acid and WBC her urine output has also decreased significantly. Problem List - Problems (1) Calculus of distal right ureter Code(s): N20.1 - CALCULUS OF URETER (2) Sepsis Assessment/Plan: gram neg sepsis. Code(s): A41.9 - SEPSIS, UNSPECIFIED ORGANISM Qualifiers: Sepsis type: sepsis due to unspecified organism Sepsis acute organ dysfunction status: with acute organ dysfunction Severe sepsis acute organ dysfunction type: unspecified Severe sepsis shock status: unspecified Qualified Code(s): A41.9 - Sepsis, unspecified organism; R65.20 - Severe sepsis without septic shock
[2019-03-11 14:45] LABS: CREATININE 2.6 mg/dL (0.55-1.3); MAGNESIUM 2.1 mg/dL (1.8-2.4)
[2019-03-11 15:18] VITALS: BMI 26.6
[2019-03-11] MEDS: PROPOFOL 1,000,000 MCG/100 ML VIAL IVPB SCH (15:51)
[2019-03-11 15:52] LABS: CALCIUM 6.1 mg/dL (8.5-10.1)
[2019-03-11] MEDS: MUPIROCIN 2% TOPICAL OINTMENT FOR DECOLONIZATION NS SCH ×2 (15:56→21:11)
[2019-03-11 17:25] LABS: ARTERIAL BLD GAS O2 SATURATION 96.6 % (95-98); ARTERIAL BLOOD GAS BASE EXCESS -7.6 meq/l (-2-2); ARTERIAL BLOOD GAS PCO2 30.3 mmHg (35-45); ARTERIAL BLOOD GAS PO2 97.1 mmHg (80-100); ARTERIAL BLOOD GAS pH 7.35 (7.35-7.45)
[2019-03-11 17:27] LABS: ALLENS TEST POSITIVE
[2019-03-11] MEDS: CHLORHEXIDINE GLUCONATE 4% CLEANSER FOR DECOLONIZATION TP SCH (21:15)
--- NOTE | 2019-03-11 23:10 | PN ---
Physical Exam: SUBJECTIVE: Patient seen and examined OBJECTIVE: Vital Signs Period Temp Pulse Resp BP Sys/Cote Pulse Ox Last 24 Hr 97.8 F-99.5 F 85-115 13-39 81-146/63-88 100 GENERAL: The patient is awake, alert, and fully oriented, in no acute distress. HEAD: Normal with no signs of trauma. EYES: PERRL, extraocular movements intact, sclera anicteric, conjunctiva clear. No ptosis. ENT: Ears normal, nares patent, oropharynx clear without exudates, moist mucous membranes. NECK: Trachea midline, full range of motion, supple. LUNGS: Breath sounds equal, clear to auscultation bilaterally, no wheezes, no crackles, no accessory muscle use. HEART: Regular rate and rhythm, S1, S2 without murmur, rub or gallop. ABDOMEN: Soft, nontender, nondistended, normoactive bowel sounds, no guarding, no rebound, no hepatosplenomegaly, no masses. EXTREMITIES: 2+ pulses, warm, well-perfused, no edema. NEUROLOGICAL: Cranial nerves II through XII grossly intact. Normal speech, gait not observed. PSYCH: Normal mood, normal affect. SKIN: Warm, dry, normal turgor, no rashes or lesions noted Laboratory Results - last 24 hr 03/10/19 03/11/19 03/11/19 23:45 06:00 06:15 WBC RBC Hgb Hct MCV MCH MCHC RDW Plt Count MPV Absolute Neuts (auto) Neutrophils % Neutrophils % (Manual) Band Neutrophils % Lymphocytes % Lymphocytes % (Manual) Monocytes % Monocytes % (Manual) Eosinophils % Eosinophils % (Manual) Basophils % Basophils % (Manual) Myelocytes % (Man) Promyelocytes % (Man) Blast Cells % (Manual) Nucleated RBC % Metamyelocytes Platelet Estimate Macrocytosis Schistocytes PT with INR INR PTT (Actin FS) Fibrinogen D-Dimer Anticoagulation Therapy No Result Required. Puncture Site Arterial line ABG pH 7.20 L ABG pCO2 at Pt Temp 29.7 L ABG pO2 at Pt Temp 120 H ABG HCO3 11.2 L ABG O2 Sat (Measured) 97.3 ABG O2 Content 97.3 ABG Base Excess -15.5 L Valeriano Test Positive O2 Delivery Device Vent Oxygen Flow Rate 100% Vent Mode A/c Vent Rate 20 Mechanical Rate No Result Required. PEEP 10.0 Pressure Support Vent 350 Sodium 141 Potassium 4.3 Chloride 104 Carbon Dioxide 17 L Anion Gap 19 H BUN 43.5 H Creatinine 2.4 H Est GFR (CKD-EPI)AfAm 22.30 Est GFR (CKD-EPI)NonAf 19.24 Random Glucose 150 H Lactic Acid Calcium 5.8 L* Magnesium Total Bilirubin 3.3 H AST 5125 H ALT 2524 H Alkaline Phosphatase 128 H Creatine Kinase 5142 H Creatine Kinase Index 2.1 CK-MB (CK-2) 112.8 H Troponin I 16.10 H* Total Protein 3.7 L Albumin 1.8 L Random Vancomycin 18.6 03/11/19 03/11/19 03/11/19 06:15 06:15 06:15 WBC 23.6 H RBC 3.52 L Hgb 12.0 Hct 34.8 MCV 99.0 H MCH 34.1 H MCHC 34.4 RDW 13.1 Plt Count 44 L D MPV 9.4 D Absolute Neuts (auto) 19.2 H Neutrophils % 81.1 Neutrophils % (Manual) 84.7 H Band Neutrophils % 7.2 Lymphocytes % 3.7 L D Lymphocytes % (Manual) 4.1 L D Monocytes % 1.3 L Monocytes % (Manual) 2 L Eosinophils % 13.7 H D Eosinophils % (Manual) 2.0 D Basophils % 0.2 Basophils % (Manual) 0.0 Myelocytes % (Man) 0 Promyelocytes % (Man) 0 Blast Cells % (Manual) 0 Nucleated RBC % 0 Metamyelocytes 0 Platelet Estimate Decreased Macrocytosis 1+ Schistocytes PT with INR 48.60 H INR 4.06 H* PTT (Actin FS) 38.7 H Fibrinogen 280.0 D-Dimer Anticoagulation Therapy Puncture Site ABG pH ABG pCO2 at Pt Temp ABG pO2 at Pt Temp ABG HCO3 ABG O2 Sat (Measured) ABG O2 Content ABG Base Excess Valeriano Test O2 Delivery Device Oxygen Flow Rate Vent Mode Vent Rate Mechanical Rate PEEP Pressure Support Vent Sodium Potassium Chloride Carbon Dioxide Anion Gap BUN Creatinine Est GFR (CKD-EPI)AfAm Est GFR (CKD-EPI)NonAf Random Glucose Lactic Acid Calcium Magnesium Total Bilirubin AST ALT Alkaline Phosphatase Creatine Kinase Creatine Kinase Index CK-MB (CK-2) Troponin I Total Protein Albumin Random Vancomycin 03/11/19 03/11/19 03/11/19 06:15 06:15 06:20 WBC RBC Hgb Hct MCV MCH MCHC RDW Plt Count MPV Absolute Neuts (auto) Neutrophils % Neutrophils % (Manual) Band Neutrophils % Lymphocytes % Lymphocytes % (Manual) Monocytes % Monocytes % (Manual) Eosinophils % Eosinophils % (Manual) Basophils % Basophils % (Manual) Myelocytes % (Man) Promyelocytes % (Man) Blast Cells % (Manual) Nucleated RBC % Metamyelocytes Platelet Estimate Macrocytosis Schistocytes PT with INR INR PTT (Actin FS) Fibrinogen D-Dimer 05741 H Anticoagulation Therapy No Result Required. Puncture Site Arterial line ABG pH 7.31 L ABG pCO2 at Pt Temp 29.0 L ABG pO2 at Pt Temp 91.6 ABG HCO3 14.2 L ABG O2 Sat (Measured) 96.1 ABG O2 Content No Result Required. ABG Base Excess -10.6 L Valeriano Test Positive O2 Delivery Device Vent Oxygen Flow Rate 90% Vent Mode A/c Vent Rate 20 Mechanical Rate No Result Required. PEEP 10.0 Pressure Support Vent 350 Sodium Potassium Chloride Carbon Dioxide Anion Gap BUN Creatinine Est GFR (CKD-EPI)AfAm Est GFR (CKD-EPI)NonAf Random Glucose Lactic Acid 12.8 H* Calcium Magnesium Total Bilirubin AST ALT Alkaline Phosphatase Creatine Kinase Creatine Kinase Index CK-MB (CK-2) Troponin I Total Protein Albumin Random Vancomycin 03/11/19 03/11/19 03/11/19 13:10 13:10 17:07 WBC 24.1 H RBC 3.73 Hgb 11.9 Hct 35.9 MCV 96.3 H MCH 32.0 MCHC 33.2 RDW 13.0 Plt Count 35 L* D MPV 10.4 D Absolute Neuts (auto) 20.5 H Neutrophils % 85.2 H Neutrophils % (Manual) 94.0 H Band Neutrophils % 0.0 Lymphocytes % 2.6 L D Lymphocytes % (Manual) 1.0 L D Monocytes % 3.0 L D Monocytes % (Manual) 3 L Eosinophils % 9.0 H Eosinophils % (Manual) 0.0 D Basophils % 0.2 Basophils % (Manual) 0.0 Myelocytes % (Man) 0 Promyelocytes % (Man) 0 Blast Cells % (Manual) 0 Nucleated RBC % 0 Metamyelocytes 0 Platelet Estimate Decreased Macrocytosis 1+ Schistocytes 1+ PT with INR INR PTT (Actin FS) Fibrinogen D-Dimer Anticoagulation Therapy No Result Required. Puncture Site Right radial ABG pH 7.35 ABG pCO2 at Pt Temp 30.3 L ABG pO2 at Pt Temp 97.1 ABG HCO3 16.4 L ABG O2 Sat (Measured) 96.6 ABG O2 Content 15.5 ABG Base Excess -7.6 L Valeriano Test Positive O2 Delivery Device No Result Required. Oxygen Flow Rate No Result Required. Vent Mode No Result Required. Vent Rate No Result Required. Mechanical Rate No Result Required. PEEP Pressure Support Vent No Result Required. Sodium 140 Potassium 4.0 Chloride 104 Carbon Dioxide 19 L Anion Gap 17 H BUN 47.0 H Creatinine 2.6 H Est GFR (CKD-EPI)AfAm 20.24 Est GFR (CKD-EPI)NonAf 17.47 Random Glucose 86 Lactic Acid Calcium 6.1 L* Magnesium 2.1 Total Bilirubin AST ALT Alkaline Phosphatase Creatine Kinase Creatine Kinase Index CK-MB (CK-2) Troponin I Total Protein Albumin Random Vancomycin Active Medications Generic Name Dose Route Start Last Admin Trade Name Freq PRN Reason Stop Dose Admin Acetaminophen 650 mg 03/10/19 00:56 Tylenol - PO Q6H PRN PAIN LEVEL 1-5 Chlorhexidine Gluconate 1 applic 03/10/19 22:00 03/11/19 21:15 Hibiclens For Decolonization - TP 1 applic HS JERRY Administration IV Flush 4 ml 03/10/19 17:16 Triple Lumen Flush IVPUSH PRN PRN Protocol Propofol 1,000,000 mcg in 100 mls @ 2.807 mls/hr 03/10/19 11:45 03/11/19 18: 43 Diprivan - IVPB 30 mcg/kg/min TITR JERRY 4.21 mls/hr Titration Protocol 20 MCG/KG/MIN Meropenem 1 gm/ Dextrose 100 mls @ 200 mls/hr 03/10/19 14:00 03/11/19 13:26 IVPB 200 mls/hr Q12H JERRY Administration Vasopressin 50 units/ Sodium 100 mls @ 4.8 mls/hr 03/10/19 19:15 03/11/19 15: 00 Chloride IVPB 0 units/hr TITR JERRY 0 mls/hr Titration Protocol 2.4 UNITS/HR Sodium Chloride 1,000 mls @ 150 mls/hr 03/11/19 07:00 03/11/19 07:00 Normal Saline - IV 150 mls/hr ASDIR JERRY Administration Mupirocin 1 applic 03/10/19 10:00 03/11/19 21:11 Bactroban Ointment (For Decolonization) - NS 03/15/19 09:59 1 applic BID JERRY Administration Ondansetron HCl 4 mg 03/10/19 00:56 Zofran Injection IVPUSH Q6H PRN NAUSEA AND/OR VOMITING ASSESSMENT/PLAN:
[2019-03-12] MEDS ORDERED: MEROPENEM 1 GM VIAL (RESTRICTED TO ID) IVPB ONE ×2 (01:14→09:39)
[2019-03-12] MEDS ORDERED: DEXTROSE 5%-WATER 100 ML IVPB ONE ×2 (01:15→09:39)
[2019-03-12] MEDS: MEROPENEM 1 GM in DEXTROSE 5%-WATER 100 ML IVPB SCH ×2 (01:26→14:24)
[2019-03-12] MEDS ORDERED: ACETAMINOPHEN 1000 MG/100 ML VIAL (NON FORMULARY) IVPB ONE (04:59)
[2019-03-12 08:30] LABS: INR 1.91 (0.83-1.09); PROTHROMBIN TIME (PATIENT) 22.7 SEC (9.7-13.0)
[2019-03-12 08:33] LABS: ACTIVATED PTT 34.1 SECONDS (25.2-36.5)
[2019-03-12 08:41] LABS: BILIRUBIN,TOTAL 3.8 mg/dL (0.2-1); BLOOD UREA NITROGEN 53.6 mg/dL (7-18); CREATININE 3.6 mg/dL (0.55-1.3); MAGNESIUM 2.1 mg/dL (1.8-2.4); PHOSPHOROUS 6.1 mg/dL (2.5-4.9); POTASSIUM 4.4 mmol/L (3.5-5.1); TOT PROT 4.1 g/dl (6.4-8.2)
[2019-03-12] MEDS ORDERED: DEXTROSE 50%-WATER - 25 GM/50 ML VIAL IVPUSH ONE ×2 (08:47→23:44)
[2019-03-12 08:48] LABS: CALCIUM 6.4 mg/dL (8.5-10.1)
[2019-03-12] MEDS ORDERED: DEXTROSE 50%-WATER 25 GM/50 ML DISP.SYRIN ONE (08:57)
[2019-03-12 09:03] LABS: HEMATOCRIT 34.5 % (32.4-45.2); HEMOGLOBIN 11.4 GM/dL (10.7-15.3); RBC 3.66 M/mm3 (3.60-5.2); WHITE BLOOD COUNT 24.9 K/mm3 (4.0-10.0)
[2019-03-12 09:04] LABS: BASO % 0.4 % (0-2.0); EOS % 3.8 % (0-4.5); LYMPH % 1.7 % (8-40); MCH 31.3 pg (25.7-33.7); MCHC 33.2 g/dl (32.0-36.0); MEAN CELL VOLUME 94.4 fl (80-96); MEAN PLT VOLUME 11.2 fl (7.5-11.1); MONO % 3.9 % (3.8-10.2); NEUT % 90.2 % (42.8-82.8); PLATELET COUNT 34 K/MM3 (134-434); RDW 12.8 % (11.6-15.6)
[2019-03-12] MEDS: PROPOFOL 1,000,000 MCG/100 ML VIAL IVPB SCH ×3 (09:41→21:26)
[2019-03-12] MEDS: MUPIROCIN 2% TOPICAL OINTMENT FOR DECOLONIZATION NS SCH ×2 (09:43→21:21)
[2019-03-12] MEDS ORDERED: METOPROLOL TARTRATE 5 MG/5 ML VIAL IVPUSH PRN (10:13)
[2019-03-12] MEDS ORDERED: SODIUM CHLORIDE 1,000 ML IV SCH ×2 (10:13→13:33)
--- NOTE | 2019-03-12 10:27 | PN ---
Teaching Attending Note Name of Resident: Leidy Bustamante ATTENDING PHYSICIAN STATEMENT I saw and evaluated the patient. I reviewed the resident's note and discussed the case with the resident. I agree with the resident's findings and plan as documented. SUBJECTIVE: OBJECTIVE: Vital Signs Period Temp Pulse Resp BP Sys/Cote Pulse Ox Last 24 Hr 98.7 F-101.8 F 85-115 13-39 107-151/63-88 100 Laboratory Results - last 24 hr 03/11/19 03/11/19 03/11/19 13:10 13:10 17:07 WBC 24.1 H RBC 3.73 Hgb 11.9 Hct 35.9 MCV 96.3 H MCH 32.0 MCHC 33.2 RDW 13.0 Plt Count 35 L* D MPV 10.4 D Absolute Neuts (auto) 20.5 H Neutrophils % 85.2 H Neutrophils % (Manual) 94.0 H Band Neutrophils % 0.0 Lymphocytes % 2.6 L D Lymphocytes % (Manual) 1.0 L D Monocytes % 3.0 L D Monocytes % (Manual) 3 L Eosinophils % 9.0 H Eosinophils % (Manual) 0.0 D Basophils % 0.2 Basophils % (Manual) 0.0 Myelocytes % (Man) 0 Promyelocytes % (Man) 0 Blast Cells % (Manual) 0 Nucleated RBC % 0 Metamyelocytes 0 Platelet Estimate Decreased Macrocytosis 1+ Schistocytes 1+ PT with INR INR PTT (Actin FS) Anticoagulation Therapy No Result Required. Puncture Site Right radial ABG pH 7.35 ABG pCO2 at Pt Temp 30.3 L ABG pO2 at Pt Temp 97.1 ABG HCO3 16.4 L ABG O2 Sat (Measured) 96.6 ABG O2 Content 15.5 ABG Base Excess -7.6 L Valeriano Test Positive O2 Delivery Device No Result Required. Oxygen Flow Rate No Result Required. Vent Mode No Result Required. Vent Rate No Result Required. Mechanical Rate No Result Required. Pressure Support Vent No Result Required. Sodium 140 Potassium 4.0 Chloride 104 Carbon Dioxide 19 L Anion Gap 17 H BUN 47.0 H Creatinine 2.6 H Est GFR (CKD-EPI)AfAm 20.24 Est GFR (CKD-EPI)NonAf 17.47 Random Glucose 86 Lactic Acid Calcium 6.1 L* Phosphorus Magnesium 2.1 Total Bilirubin AST ALT Alkaline Phosphatase Troponin I Total Protein Albumin 03/12/19 03/12/19 03/12/19 06:00 06:00 06:00 WBC 24.9 H RBC 3.66 Hgb 11.4 Hct 34.5 MCV 94.4 MCH 31.3 MCHC 33.2 RDW 12.8 Plt Count 34 L* MPV 11.2 H Absolute Neuts (auto) 22.4 H Neutrophils % 90.2 H Neutrophils % (Manual) Band Neutrophils % Lymphocytes % 1.7 L D Lymphocytes % (Manual) Monocytes % 3.9 Monocytes % (Manual) Eosinophils % 3.8 Eosinophils % (Manual) Basophils % 0.4 Basophils % (Manual) Myelocytes % (Man) Promyelocytes % (Man) Blast Cells % (Manual) Nucleated RBC % 1 H Metamyelocytes Platelet Estimate Macrocytosis Schistocytes PT with INR 22.70 H INR 1.91 H PTT (Actin FS) 34.1 Anticoagulation Therapy Puncture Site ABG pH ABG pCO2 at Pt Temp ABG pO2 at Pt Temp ABG HCO3 ABG O2 Sat (Measured) ABG O2 Content ABG Base Excess Valeriano Test O2 Delivery Device Oxygen Flow Rate Vent Mode Vent Rate Mechanical Rate Pressure Support Vent Sodium 140 Potassium 4.4 Chloride 105 Carbon Dioxide 18 L Anion Gap 18 H BUN 53.6 H Creatinine 3.6 H Est GFR (CKD-EPI)AfAm 13.66 Est GFR (CKD-EPI)NonAf 11.79 Random Glucose 25 L* Lactic Acid Calcium 6.4 L* Phosphorus 6.1 H Magnesium 2.1 Total Bilirubin 3.8 H AST 4819 H ALT 3430 H Alkaline Phosphatase 180 H Troponin I 9.16 H* Total Protein 4.1 L Albumin 2.0 L 03/12/19 06:00 WBC RBC Hgb Hct MCV MCH MCHC RDW Plt Count MPV Absolute Neuts (auto) Neutrophils % Neutrophils % (Manual) Band Neutrophils % Lymphocytes % Lymphocytes % (Manual) Monocytes % Monocytes % (Manual) Eosinophils % Eosinophils % (Manual) Basophils % Basophils % (Manual) Myelocytes % (Man) Promyelocytes % (Man) Blast Cells % (Manual) Nucleated RBC % Metamyelocytes Platelet Estimate Macrocytosis Schistocytes PT with INR INR PTT (Actin FS) Anticoagulation Therapy Puncture Site ABG pH ABG pCO2 at Pt Temp ABG pO2 at Pt Temp ABG HCO3 ABG O2 Sat (Measured) ABG O2 Content ABG Base Excess Valeriano Test O2 Delivery Device Oxygen Flow Rate Vent Mode Vent Rate Mechanical Rate Pressure Support Vent Sodium Potassium Chloride Carbon Dioxide Anion Gap BUN Creatinine Est GFR (CKD-EPI)AfAm Est GFR (CKD-EPI)NonAf Random Glucose Lactic Acid 9.8 H* Calcium Phosphorus Magnesium Total Bilirubin AST ALT Alkaline Phosphatase Troponin I Total Protein Albumin Current Medications Generic Name Dose Route Start Last Admin Trade Name Freq PRN Reason Stop Dose Admin Chlorhexidine Gluconate 1 applic 03/10/19 22:00 03/11/19 21:15 Hibiclens For Decolonization - TP 1 applic HS JERRY Administration IV Flush 4 ml 03/10/19 17:16 Triple Lumen Flush IVPUSH PRN PRN Protocol Propofol 1,000,000 mcg in 100 mls @ 2.807 mls/hr 03/10/19 11:45 03/12/19 09: 42 Diprivan - IVPB 40 mcg/kg/min TITR JERRY 5.613 mls/hr Titration Protocol 20 MCG/KG/MIN Meropenem 1 gm/ Dextrose 100 mls @ 200 mls/hr 03/10/19 14:00 03/12/19 01:26 IVPB 200 mls/hr Q12H JERRY Administration Vasopressin 50 units/ Sodium 100 mls @ 4.8 mls/hr 03/10/19 19:15 03/11/19 23: 56 Chloride IVPB 0 units/hr TITR JERRY 0 mls/hr Titration Protocol 2.4 UNITS/HR Sodium Chloride 1,000 mls @ 75 mls/hr 03/12/19 10:13 Normal Saline - IV ASDIR JERRY Fentanyl 500 mcg/ Dextrose 100 mls @ 10 mls/hr 03/12/19 10:15 IVPB TITR JERRY 50 MCG/HR Metoprolol Tartrate 5 mg 03/12/19 10:13 Lopressor Injection - IVPUSH Q4H PRN HYPERTENSION Mupirocin 1 applic 03/10/19 10:00 03/12/19 09:43 Bactroban Ointment (For Decolonization) - NS 03/15/19 09:59 1 applic BID JERRY Administration Ondansetron HCl 4 mg 03/10/19 00:56 Zofran Injection IVPUSH Q6H PRN NAUSEA AND/OR VOMITING ASSESSMENT AND PLAN:
--- NOTE | 2019-03-12 10:29 | PN ---
Progress Note, Physician Chief Complaint: Events noted Remains intubated. Sedated History of Present Illness: Patient was seen and examined. Mechanical ventilation. Chart was reviewed BP maintained off pressor Periods of SVT noted on the monitor - Current Medication List Current Medications: Active Medications Chlorhexidine Gluconate (Hibiclens For Decolonization -) 1 applic TP HS JERRY Last Admin: 03/11/19 21:15 Dose: 1 applic IV Flush (Triple Lumen Flush) 4 ml IVPUSH PRN PRN PRN Reason: Protocol Propofol (Diprivan -) 1,000,000 mcg in 100 mls @ 2.807 mls/hr IVPB TITR JERRY; Protocol Last Titration: 03/12/19 09:42 Dose: 40 mcg/kg/min, 5.613 mls/hr Meropenem 1 gm/ Dextrose 100 mls @ 200 mls/hr IVPB Q12H JERRY Last Admin: 03/12/19 01:26 Dose: 200 mls/hr Vasopressin 50 units/ Sodium (Chloride) 100 mls @ 4.8 mls/hr IVPB TITR JERRY; Protocol Last Titration: 03/11/19 23:56 Dose: 0 units/hr, 0 mls/hr Sodium Chloride (Normal Saline -) 1,000 mls @ 75 mls/hr IV ASDIR JERRY Fentanyl 500 mcg/ Dextrose 100 mls @ 10 mls/hr IVPB TITR JERRY Metoprolol Tartrate (Lopressor Injection -) 5 mg IVPUSH Q4H PRN PRN Reason: HYPERTENSION Mupirocin (Bactroban Ointment (For Decolonization) -) 1 applic NS BID [facility] Stop: 03/15/19 09:59 Last Admin: 03/12/19 09:43 Dose: 1 applic Ondansetron HCl (Zofran Injection) 4 mg IVPUSH Q6H PRN PRN Reason: NAUSEA AND/OR VOMITING - Objective Vital Signs: Vital Signs Temperature 101.0 F H 03/12/19 07:51 Pulse Rate 107 H 03/12/19 08:33 Respiratory Rate 20 03/12/19 08:52 Blood Pressure 151/76 03/12/19 08:33 O2 Sat by Pulse Oximetry (%) 100 03/11/19 20:44 Cardiovascular: Yes: Regular Rate and Rhythm, S1, S2 Respiratory: Yes: Diminished, Mechanically Ventilated Gastrointestinal: Yes: Normal Bowel Sounds, Soft. No: Tenderness Edema: No Labs: CBC, BMP 03/12/19 06:00 03/12/19 06:00 INR, PTT INR 1.91 (0.83-1.09) H 03/12/19 06:00 Fibrinogen 280.0 mg/dL (238-498) 03/11/19 06:15 Problem List - Problems (1) CORAL (acute kidney injury) Code(s): N17.9 - ACUTE KIDNEY FAILURE, UNSPECIFIED (2) Bacteremia Code(s): R78.81 - BACTEREMIA (3) Calculus of distal right ureter Code(s): N20.1 - CALCULUS OF URETER (4) Nephrolithiasis Code(s): N20.0 - CALCULUS OF KIDNEY (5) Postoperative cardiac arrest following non-cardiac surgery Code(s): I97.121 - POSTPROCEDURAL CARDIAC ARREST FOLLOWING OTHER SURGERY (6) Sepsis with acute liver failure and septic shock Code(s): A41.9 - SEPSIS, UNSPECIFIED ORGANISM; R65.21 - SEVERE SEPSIS WITH SEPTIC SHOCK; K72.01 - ACUTE AND SUBACUTE HEPATIC FAILURE WITH COMA (7) Septic shock Code(s): A41.9 - SEPSIS, UNSPECIFIED ORGANISM; R65.21 - SEVERE SEPSIS WITH SEPTIC SHOCK (8) Thrombocytopenia Code(s): D69.6 - THROMBOCYTOPENIA, UNSPECIFIED Assessment/Plan 1. Post PEA cardiac arrest s/p emergent cystoscopy with stone removal and stent placement: ROSC <3 minutes. 2. 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 Demand ischemia 4. Thrombocytopenia 5. Oliguric CORAL 6. Coagulaopathy 7. Shock liver 8. Respiratory failure on mechanical ventilation PLAN: 1. Current supportive care and vent management per Critical care team 2. Consider IV beta frank as BP is tolerated 3. Antibiotic coverage 4. Echocardiography report noted 5. Monitor renal function and electrolytes Poor prognosis Maurizio Euceda MD
[2019-03-12 10:41] LABS: MACROCYTOSIS 1+; PLATELET ESTIMATE DECREASED
[2019-03-12 11:01] LABS: ARTERIAL BLD GAS O2 SATURATION 97.9 % (95-98); ARTERIAL BLOOD GAS BASE EXCESS -8.1 meq/l (-2-2); ARTERIAL BLOOD GAS PCO2 27.6 mmHg (35-45); ARTERIAL BLOOD GAS PO2 122 mmHg (80-100); ARTERIAL BLOOD GAS pH 7.37 (7.35-7.45)
[2019-03-12 11:05] LABS: ALLENS TEST POSITIVE
[2019-03-12] MEDS: SODIUM CHLORIDE 1,000 ML IV SCH (11:58)
--- NOTE | 2019-03-12 12:00 | PN ---
Physical Exam: SUBJECTIVE: Patient seen and examined. She is sedated on vent. OBJECTIVE: Vital Signs Period Temp Pulse Resp BP Sys/Cote Pulse Ox Last 24 Hr 86 F-101.8 F 85-115 13-39 107-156/63-88 100 GENERAL: The patient is sedated, intubated. LUNGS: Breath sounds equal, bilateral rhonchi. HEART: Regular rate and rhythm, S1, S2 without murmur, rub or gallop. ABDOMEN: Soft, normoactive bowel sounds, no hepatosplenomegaly, no masses. EXTREMITIES: Mottled, no edema. SKIN: Warm, dry, normal turgor, no rashes or lesions noted Laboratory Results - last 24 hr 03/11/19 03/11/19 03/11/19 13:10 13:10 17:07 WBC 24.1 H RBC 3.73 Hgb 11.9 Hct 35.9 MCV 96.3 H MCH 32.0 MCHC 33.2 RDW 13.0 Plt Count 35 L* D MPV 10.4 D Absolute Neuts (auto) 20.5 H Total Counted Neutrophils % 85.2 H Neutrophils % (Manual) 94.0 H Band Neutrophils % 0.0 Lymphocytes % 2.6 L D Lymphocytes % (Manual) 1.0 L D Monocytes % 3.0 L D Monocytes % (Manual) 3 L Eosinophils % 9.0 H Eosinophils % (Manual) 0.0 D Basophils % 0.2 Basophils % (Manual) 0.0 Myelocytes % (Man) 0 Promyelocytes % (Man) 0 Blast Cells % (Manual) 0 Nucleated RBC % 0 Metamyelocytes 0 Differential Comment Hypersegmented Neuts Plasma Cells Smudge Cells Other Cell Type Hypochromia Toxic Granulation Dohle Bodies Sophia Rods Platelet Estimate Decreased Platelet Comment Polychromasia Poikilocytosis Basophilic Stippling Anisocytosis Microcytosis Macrocytosis 1+ Spherocytes Siderocytes Sickle Cells Target Cells Tear Drop Cells Ovalocytes Stomatocytes Helmet Cells [place] Bodies [place] Rings Kirsty Cells Acanthocytes (Spur) Rouleaux Fragmented RBCs Schistocytes 1+ PT with INR INR PTT (Actin FS) Anticoagulation Therapy No Result Required. Puncture Site Right radial ABG pH 7.35 ABG pCO2 at Pt Temp 30.3 L ABG pO2 at Pt Temp 97.1 ABG HCO3 16.4 L ABG O2 Sat (Measured) 96.6 ABG O2 Content 15.5 ABG Base Excess -7.6 L Valeriano Test Positive O2 Delivery Device No Result Required. Oxygen Flow Rate No Result Required. Vent Mode No Result Required. Vent Rate No Result Required. Mechanical Rate No Result Required. Pressure Support Vent No Result Required. Sodium 140 Potassium 4.0 Chloride 104 Carbon Dioxide 19 L Anion Gap 17 H BUN 47.0 H Creatinine 2.6 H Est GFR (CKD-EPI)AfAm 20.24 Est GFR (CKD-EPI)NonAf 17.47 Random Glucose 86 Lactic Acid Calcium 6.1 L* Phosphorus Magnesium 2.1 Total Bilirubin AST ALT Alkaline Phosphatase Troponin I Total Protein Albumin 03/12/19 03/12/19 03/12/19 06:00 06:00 06:00 WBC 24.9 H RBC 3.66 Hgb 11.4 Hct 34.5 MCV 94.4 MCH 31.3 MCHC 33.2 RDW 12.8 Plt Count 34 L* MPV 11.2 H Absolute Neuts (auto) 22.4 H Total Counted Neutrophils % 90.2 H Neutrophils % (Manual) 89.6 H Band Neutrophils % 0.0 Lymphocytes % 1.7 L D Lymphocytes % (Manual) 6.2 L D Monocytes % 3.9 Monocytes % (Manual) 4 Eosinophils % 3.8 Eosinophils % (Manual) 0.0 Basophils % 0.4 Basophils % (Manual) 0.0 Myelocytes % (Man) 0 Promyelocytes % (Man) 0 Blast Cells % (Manual) 0 Nucleated RBC % 1 H Metamyelocytes 0 Differential Comment Hypersegmented Neuts Plasma Cells Smudge Cells Other Cell Type Hypochromia Toxic Granulation Dohle Bodies Sophia Rods Platelet Estimate Decreased Platelet Comment Polychromasia Poikilocytosis Basophilic Stippling Anisocytosis Microcytosis Macrocytosis 1+ Spherocytes Siderocytes Sickle Cells Target Cells Tear Drop Cells Ovalocytes Stomatocytes Helmet Cells [place] Bodies [place] Rings Kirsty Cells Acanthocytes (Spur) Rouleaux Fragmented RBCs Schistocytes PT with INR 22.70 H INR 1.91 H PTT (Actin FS) 34.1 Anticoagulation Therapy Puncture Site ABG pH ABG pCO2 at Pt Temp ABG pO2 at Pt Temp ABG HCO3 ABG O2 Sat (Measured) ABG O2 Content ABG Base Excess Valeriano Test O2 Delivery Device Oxygen Flow Rate Vent Mode Vent Rate Mechanical Rate Pressure Support Vent Sodium 140 Potassium 4.4 Chloride 105 Carbon Dioxide 18 L Anion Gap 18 H BUN 53.6 H Creatinine 3.6 H Est GFR (CKD-EPI)AfAm 13.66 Est GFR (CKD-EPI)NonAf 11.79 Random Glucose 25 L* Lactic Acid Calcium 6.4 L* Phosphorus 6.1 H Magnesium 2.1 Total Bilirubin 3.8 H AST 4819 H ALT 3430 H Alkaline Phosphatase 180 H Troponin I 9.16 H* Total Protein 4.1 L Albumin 2.0 L 03/12/19 03/12/19 03/12/19 06:00 06:00 10:30 WBC RBC Hgb Hct MCV MCH MCHC RDW Plt Count MPV Absolute Neuts (auto) Total Counted Cancelled Neutrophils % Neutrophils % (Manual) Cancelled Band Neutrophils % Cancelled Lymphocytes % Lymphocytes % (Manual) Cancelled Monocytes % Monocytes % (Manual) Cancelled Eosinophils % Eosinophils % (Manual) Cancelled Basophils % Basophils % (Manual) Cancelled Myelocytes % (Man) Cancelled Promyelocytes % (Man) Cancelled Blast Cells % (Manual) Cancelled Nucleated RBC % Cancelled Metamyelocytes Cancelled Differential Comment Cancelled Hypersegmented Neuts Cancelled Plasma Cells Cancelled Smudge Cells Cancelled Other Cell Type Cancelled Hypochromia Cancelled Toxic Granulation Cancelled Dohle Bodies Cancelled Sophia Rods Cancelled Platelet Estimate Cancelled Platelet Comment Cancelled Polychromasia Cancelled Poikilocytosis Cancelled Basophilic Stippling Cancelled Anisocytosis Cancelled Microcytosis Cancelled Macrocytosis Cancelled Spherocytes Cancelled Siderocytes Cancelled Sickle Cells Cancelled Target Cells Cancelled Tear Drop Cells Cancelled Ovalocytes Cancelled Stomatocytes Cancelled Helmet Cells Cancelled [place] Bodies Cancelled [place] Rings Cancelled Kirsty Cells Cancelled Acanthocytes (Spur) Cancelled Rouleaux Cancelled Fragmented RBCs Cancelled Schistocytes Cancelled PT with INR INR PTT (Actin FS) Anticoagulation Therapy No Result Required. Puncture Site Right radial ABG pH 7.37 ABG pCO2 at Pt Temp 27.6 L ABG pO2 at Pt Temp 122 H ABG HCO3 15.6 L ABG O2 Sat (Measured) 97.9 ABG O2 Content 14.6 ABG Base Excess -8.1 L Valeriano Test Positive O2 Delivery Device No Result Required. Oxygen Flow Rate Yes Vent Mode No Result Required. Vent Rate No Result Required. Mechanical Rate No Result Required. Pressure Support Vent No Result Required. Sodium Potassium Chloride Carbon Dioxide Anion Gap BUN Creatinine Est GFR (CKD-EPI)AfAm Est GFR (CKD-EPI)NonAf Random Glucose Lactic Acid 9.8 H* Calcium Phosphorus Magnesium Total Bilirubin AST ALT Alkaline Phosphatase Troponin I Total Protein Albumin Active Medications Generic Name Dose Route Start Last Admin Trade Name Freq PRN Reason Stop Dose Admin Chlorhexidine Gluconate 1 applic 03/10/19 22:00 03/11/19 21:15 Hibiclens For Decolonization - TP 1 applic HS JERRY Administration IV Flush 4 ml 03/10/19 17:16 Triple Lumen Flush IVPUSH PRN PRN Protocol Propofol 1,000,000 mcg in 100 mls @ 2.807 mls/hr 03/10/19 11:45 03/12/19 09: 42 Diprivan - IVPB 40 mcg/kg/min TITR JERRY 5.613 mls/hr Titration Protocol 20 MCG/KG/MIN Meropenem 1 gm/ Dextrose 100 mls @ 200 mls/hr 03/10/19 14:00 03/12/19 01:26 IVPB 200 mls/hr Q12H JERRY Administration Vasopressin 50 units/ Sodium 100 mls @ 4.8 mls/hr 03/10/19 19:15 03/11/19 23: 56 Chloride IVPB 0 units/hr TITR JERRY 0 mls/hr Titration Protocol 2.4 UNITS/HR Sodium Chloride 1,000 mls @ 75 mls/hr 03/12/19 10:13 03/12/19 11:00 Normal Saline - IV 75 mls/hr ASDIR JERRY Administration Fentanyl 500 mcg/ Dextrose 100 mls @ 10 mls/hr 03/12/19 10:15 IVPB TITR JERRY Protocol 50 MCG/HR Metoprolol Tartrate 5 mg 03/12/19 10:13 Lopressor Injection - IVPUSH Q4H PRN HYPERTENSION Mupirocin 1 applic 03/10/19 10:00 03/12/19 09:43 Bactroban Ointment (For Decolonization) - NS 03/15/19 09:59 1 applic BID JERRY Administration Ondansetron HCl 4 mg 03/10/19 00:56 Zofran Injection IVPUSH Q6H PRN NAUSEA AND/OR VOMITING ASSESSMENT/PLAN: This is a 73 year old woman with a history of hyperlipidemia who presented to the ED with RLQ abdominal pain. 1. Multi-organ failure secondary to septic shock from gram negative bacteremia/ UTI and obstructing right UVJ stone - Remains intubated - On Propofol, Fentanyl for sedation - On Vasopressin - Continue IV fluid, meropenem - s/p right ureteral stent placement 2. Cardiac arrest - s/p PEA arrest post-op 3. Acute kidney injury - Probable ATN from sepsis - BUN, creatinine worsening - Continue IV fluid, pressors 4. Hypokalemia - Improved 5. Thrombocytopenia 6. Coagulopathy - Given vitamin K Visit type - Emergency Visit Emergency Visit: Yes ED Registration Date: 03/09/19 Care time: The patient presented to the Emergency Department on the above date and was hospitalized for further evaluation of their emergent condition. - New Patient This patient is new to me today: Yes Date on this admission: 03/12/19 - Critical Care Critical Care patient: Yes Total Critical Care Time (in minutes): 45 Critical Care Statement: The care of this patient involved high complexity decision making to prevent further life threatening deterioration of the patient 's condition and/or to evaluate & treat vital organ system(s) failure or risk of failure.
[2019-03-12] MEDS ORDERED: fentaNYL CITRATE 250 MCG/5 ML VIAL ONE ×2 (12:11→21:22)
[2019-03-12] MEDS: FENTANYL INJECTION 500 MCG in DEXTROSE 5%-WATER - 90 ML IVPB SCH ×2 (12:15→21:26)
--- NOTE | 2019-03-12 13:46 | PN ---
Physical Exam: SUBJECTIVE: Patient seen and examined. Patient is intubated and sedated. Cyanosis of extremities improving. OBJECTIVE: Vital Signs Period Temp Pulse Resp BP Sys/Cote Pulse Ox Last 24 Hr 98.7 F-101.8 F 84-115 13-39 111-156/63-88 100 GENERAL: intubated and sedated HEAD: NC/AT ENT: dry mucous membranes NECK: trachea midline, intubated LUNGS: Rhonchi bilaterally, no accessory muscle use HEART: Regular rate and rhythm, S1, S2 without murmur, rub or gallop. ABDOMEN: firm, nontender, nondistended. not tympanic EXTREMITIES: mottling of extremities. no edema. Cynaosis of right hand worse than left NEUROLOGICAL: unable to assess as patient is sedated SKIN: mottling and cyanosis of extremities Laboratory Results - last 24 hr 03/11/19 03/11/19 03/11/19 13:10 13:10 17:07 WBC 24.1 H RBC 3.73 Hgb 11.9 Hct 35.9 MCV 96.3 H MCH 32.0 MCHC 33.2 RDW 13.0 Plt Count 35 L* D MPV 10.4 D Absolute Neuts (auto) 20.5 H Total Counted Neutrophils % 85.2 H Neutrophils % (Manual) 94.0 H Band Neutrophils % 0.0 Lymphocytes % 2.6 L D Lymphocytes % (Manual) 1.0 L D Monocytes % 3.0 L D Monocytes % (Manual) 3 L Eosinophils % 9.0 H Eosinophils % (Manual) 0.0 D Basophils % 0.2 Basophils % (Manual) 0.0 Myelocytes % (Man) 0 Promyelocytes % (Man) 0 Blast Cells % (Manual) 0 Nucleated RBC % 0 Metamyelocytes 0 Differential Comment Hypersegmented Neuts Plasma Cells Smudge Cells Other Cell Type Hypochromia Toxic Granulation Dohle Bodies Sophia Rods Platelet Estimate Decreased Platelet Comment Polychromasia Poikilocytosis Basophilic Stippling Anisocytosis Microcytosis Macrocytosis 1+ Spherocytes Siderocytes Sickle Cells Target Cells Tear Drop Cells Ovalocytes Stomatocytes Helmet Cells [place] Bodies [place] Rings Kirsty Cells Acanthocytes (Spur) Rouleaux Fragmented RBCs Schistocytes 1+ PT with INR INR PTT (Actin FS) Anticoagulation Therapy No Result Required. Puncture Site Right radial ABG pH 7.35 ABG pCO2 at Pt Temp 30.3 L ABG pO2 at Pt Temp 97.1 ABG HCO3 16.4 L ABG O2 Sat (Measured) 96.6 ABG O2 Content 15.5 ABG Base Excess -7.6 L Valeriano Test Positive O2 Delivery Device No Result Required. Oxygen Flow Rate No Result Required. Vent Mode No Result Required. Vent Rate No Result Required. Mechanical Rate No Result Required. Pressure Support Vent No Result Required. Sodium 140 Potassium 4.0 Chloride 104 Carbon Dioxide 19 L Anion Gap 17 H BUN 47.0 H Creatinine 2.6 H Est GFR (CKD-EPI)AfAm 20.24 Est GFR (CKD-EPI)NonAf 17.47 Random Glucose 86 Lactic Acid Calcium 6.1 L* Phosphorus Magnesium 2.1 Total Bilirubin AST ALT Alkaline Phosphatase Troponin I Total Protein Albumin 03/12/19 03/12/19 03/12/19 06:00 06:00 06:00 WBC 24.9 H RBC 3.66 Hgb 11.4 Hct 34.5 MCV 94.4 MCH 31.3 MCHC 33.2 RDW 12.8 Plt Count 34 L* MPV 11.2 H Absolute Neuts (auto) 22.4 H Total Counted Neutrophils % 90.2 H Neutrophils % (Manual) 89.6 H Band Neutrophils % 0.0 Lymphocytes % 1.7 L D Lymphocytes % (Manual) 6.2 L D Monocytes % 3.9 Monocytes % (Manual) 4 Eosinophils % 3.8 Eosinophils % (Manual) 0.0 Basophils % 0.4 Basophils % (Manual) 0.0 Myelocytes % (Man) 0 Promyelocytes % (Man) 0 Blast Cells % (Manual) 0 Nucleated RBC % 1 H Metamyelocytes 0 Differential Comment Hypersegmented Neuts Plasma Cells Smudge Cells Other Cell Type Hypochromia Toxic Granulation Dohle Bodies Sophia Rods Platelet Estimate Decreased Platelet Comment Polychromasia Poikilocytosis Basophilic Stippling Anisocytosis Microcytosis Macrocytosis 1+ Spherocytes Siderocytes Sickle Cells Target Cells Tear Drop Cells Ovalocytes Stomatocytes Helmet Cells [place] Bodies [place] Rings Kirsty Cells Acanthocytes (Spur) Rouleaux Fragmented RBCs Schistocytes PT with INR 22.70 H INR 1.91 H PTT (Actin FS) 34.1 Anticoagulation Therapy Puncture Site ABG pH ABG pCO2 at Pt Temp ABG pO2 at Pt Temp ABG HCO3 ABG O2 Sat (Measured) ABG O2 Content ABG Base Excess Valeriano Test O2 Delivery Device Oxygen Flow Rate Vent Mode Vent Rate Mechanical Rate Pressure Support Vent Sodium 140 Potassium 4.4 Chloride 105 Carbon Dioxide 18 L Anion Gap 18 H BUN 53.6 H Creatinine 3.6 H Est GFR (CKD-EPI)AfAm 13.66 Est GFR (CKD-EPI)NonAf 11.79 Random Glucose 25 L* Lactic Acid Calcium 6.4 L* Phosphorus 6.1 H Magnesium 2.1 Total Bilirubin 3.8 H AST 4819 H ALT 3430 H Alkaline Phosphatase 180 H Troponin I 9.16 H* Total Protein 4.1 L Albumin 2.0 L 03/12/19 03/12/19 03/12/19 06:00 06:00 10:30 WBC RBC Hgb Hct MCV MCH MCHC RDW Plt Count MPV Absolute Neuts (auto) Total Counted Cancelled Neutrophils % Neutrophils % (Manual) Cancelled Band Neutrophils % Cancelled Lymphocytes % Lymphocytes % (Manual) Cancelled Monocytes % Monocytes % (Manual) Cancelled Eosinophils % Eosinophils % (Manual) Cancelled Basophils % Basophils % (Manual) Cancelled Myelocytes % (Man) Cancelled Promyelocytes % (Man) Cancelled Blast Cells % (Manual) Cancelled Nucleated RBC % Cancelled Metamyelocytes Cancelled Differential Comment Cancelled Hypersegmented Neuts Cancelled Plasma Cells Cancelled Smudge Cells Cancelled Other Cell Type Cancelled Hypochromia Cancelled Toxic Granulation Cancelled Dohle Bodies Cancelled Sophia Rods Cancelled Platelet Estimate Cancelled Platelet Comment Cancelled Polychromasia Cancelled Poikilocytosis Cancelled Basophilic Stippling Cancelled Anisocytosis Cancelled Microcytosis Cancelled Macrocytosis Cancelled Spherocytes Cancelled Siderocytes Cancelled Sickle Cells Cancelled Target Cells Cancelled Tear Drop Cells Cancelled Ovalocytes Cancelled Stomatocytes Cancelled Helmet Cells Cancelled [place] Bodies Cancelled [place] Rings Cancelled Kirsty Cells Cancelled Acanthocytes (Spur) Cancelled Rouleaux Cancelled Fragmented RBCs Cancelled Schistocytes Cancelled PT with INR INR PTT (Actin FS) Anticoagulation Therapy No Result Required. Puncture Site Right radial ABG pH 7.37 ABG pCO2 at Pt Temp 27.6 L ABG pO2 at Pt Temp 122 H ABG HCO3 15.6 L ABG O2 Sat (Measured) 97.9 ABG O2 Content 14.6 ABG Base Excess -8.1 L Valeriano Test Positive O2 Delivery Device No Result Required. Oxygen Flow Rate Yes Vent Mode No Result Required. Vent Rate No Result Required. Mechanical Rate No Result Required. Pressure Support Vent No Result Required. Sodium Potassium Chloride Carbon Dioxide Anion Gap BUN Creatinine Est GFR (CKD-EPI)AfAm Est GFR (CKD-EPI)NonAf Random Glucose Lactic Acid 9.8 H* Calcium Phosphorus Magnesium Total Bilirubin AST ALT Alkaline Phosphatase Troponin I Total Protein Albumin Active Medications Generic Name Dose Route Start Last Admin Trade Name Freq PRN Reason Stop Dose Admin Chlorhexidine Gluconate 1 applic 03/10/19 22:00 03/11/19 21:15 Hibiclens For Decolonization - TP 1 applic HS JERRY Administration IV Flush 4 ml 03/10/19 17:16 Triple Lumen Flush IVPUSH PRN PRN Protocol Propofol 1,000,000 mcg in 100 mls @ 2.807 mls/hr 03/10/19 11:45 03/12/19 09: 42 Diprivan - IVPB 40 mcg/kg/min TITR JERRY 5.613 mls/hr Titration Protocol 20 MCG/KG/MIN Meropenem 1 gm/ Dextrose 100 mls @ 200 mls/hr 03/10/19 14:00 03/12/19 01:26 IVPB 200 mls/hr Q12H JERRY Administration Vasopressin 50 units/ Sodium 100 mls @ 4.8 mls/hr 03/10/19 19:15 03/11/19 23: 56 Chloride IVPB 0 units/hr TITR JERRY 0 mls/hr Titration Protocol 2.4 UNITS/HR Fentanyl 500 mcg/ Dextrose 100 mls @ 10 mls/hr 03/12/19 10:15 03/12/19 12:15 IVPB 50 mcg/hr TITR JERRY 10 mls/hr Administration Protocol 50 MCG/HR Sodium Chloride 1,000 mls @ 42 mls/hr 03/12/19 13:33 Normal Saline - IV ASDIR JERRY Metoprolol Tartrate 5 mg 03/12/19 10:13 Lopressor Injection - IVPUSH Q4H PRN HYPERTENSION Mupirocin 1 applic 03/10/19 10:00 03/12/19 09:43 Bactroban Ointment (For Decolonization) - NS 03/15/19 09:59 1 applic BID JERRY Administration Ondansetron HCl 4 mg 03/10/19 00:56 Zofran Injection IVPUSH Q6H PRN NAUSEA AND/OR VOMITING ASSESSMENT/PLAN: 73 y/o/f with PMH HLD and Cataracts presenting with sepsis, hydronephrosis, R ureteral stone, now s/p stenting and removal. S/p PEA arrest 02/07 AM requiring one round of epi. Course c/b peripheral cyanosis on pressors, multi-organ failure, GNR bacteremia due to urosepsis, now with coagulopathy due to MOF/ Sepsis. #Neuro - intubated, sedated - Fentanyl and Propofol for sedation #Cardio - S/p PEA arrest 03/10, ROSC obtained after one round of Epi - development of peripheral cyanosis likely 2/2 pressor use vs sepsis - arterial line discontinued on 03/11 - monitor CVP - Maintain MAP >65 - pressors discontinued - Demarcated ischemic lines on bilateral UE. Left hand improving. Right hand still cyanotic - Troponin downtrending - Lopressor 5mg Q4hr PRN for tachycardia - Echo - normal EF, mild to moderate aortic and mitral regurg #Pulm - Intubated, AC mode - Continue to monitor ventilation / saturation - maintain oxygen saturation >90% - CXR 03/12 - continued bilateral pulmonary pleural changes, some improved compared to prior CXR #Renal - s/p stent placement, CORAL, gross hematuria - Trend lytes, replete as necessary - Strict I&Os - Renal function worsenin, patient not making adequate urine - gentle hydration - monitor glucose via BMP #GI - LFT derangements in setting of hypoperfusion, sepsis, MOF - Trend LFTs. AST improving, ALT uptrending - Avoid hepatotoxic medications #Heme/Onc - coagulopathy improved - Trend Plts/Coags - Vitamin K 10, FFP x2 given on 03/11 - Transfuse as appropriate #ID - GNR bacteremia, on broad spectrum abx - Meropenum discontinued - Switched to ceftriaxone - Blood cultures growing Klebsiella - Appreciate ID recs #FEN - DVT PPX - consider starting tube feeds tomorrow - monitor and replete lytes as needed #Disposition - Patient is full code until her sister from [place] arrives - Continue ICU monitoring Visit type - Emergency Visit Emergency Visit: Yes ED Registration Date: 03/09/19 Care time: The patient presented to the Emergency Department on the above date and was hospitalized for further evaluation of their emergent condition. - New Patient This patient is new to me today: Yes Date on this admission: 03/12/19 - Critical Care Critical Care patient: Yes Total Critical Care Time (in minutes): 36 Critical Care Statement: The care of this patient involved high complexity decision making to prevent further life threatening deterioration of the patient 's condition and/or to evaluate & treat vital organ system(s) failure or risk of failure. ATTENDING PHYSICIAN STATEMENT I saw and evaluated the patient. I reviewed the resident's note and discussed the case with the resident. I agree with the resident's findings and plan as documented. SUBJECTIVE: OBJECTIVE: ASSESSMENT AND PLAN:
--- NOTE | 2019-03-12 14:04 | CONSULT ---
Consultation: REQUESTING PROVIDER: Dr. Jung CONSULT SERVICE: Nephrology HISTORY OF PRESENT ILLNESS: Patient is a 73 year old female with history of hyperlipidemia, presented initially with complaint of right sided abdominal pain. Found to have sepsis secondary to obstructing right sided renal stone at ureterovesical junction with resulting hydronephrosis, and underwent emergent stent placement. Blood and urine cultures grow Klebsiella Pneumoniae. Potoperatively, patient had PEA cardiac arrest with ROSC s/p 1 round Epinepherine. Patient remains intubated, sedated on Propofol, Fentanyl. Past medical history: hyperlipidemia, cataracts Past surgical history: appendectomy Family history: unable to obtain Allergies: NKDA Social: Negative cigarette smoking, alcohol consumption, illicit drug use. REVIEW OF SYSTEMS: As per HPI. Unable to obtain further as patient remains intubated, sedated. PHYSICAL EXAMINATION Vital Signs - 24 hr 03/11/19 03/11/19 03/11/19 13:53 13:55 14:00 Temperature 98.7 F 99.2 F Pulse Rate 85 85 115 H Respiratory 35 H 13 Rate Blood Pressure 135/79 135/79 114/63 O2 Sat by Pulse Oximetry (%) 03/11/19 03/11/19 03/11/19 14:56 15:00 16:00 Temperature 99.3 F 99.2 F Pulse Rate 87 87 94 H Respiratory 35 H 35 H Rate Blood Pressure 137/79 121/71 111/68 O2 Sat by Pulse Oximetry (%) 03/11/19 03/11/19 03/11/19 17:00 17:59 18:41 Temperature 99.3 F 99.2 F Pulse Rate 94 H 88 94 H Respiratory 36 H 36 H 39 H Rate Blood Pressure 113/70 123/80 146/88 O2 Sat by Pulse Oximetry (%) 03/11/19 03/11/19 03/11/19 20:00 20:30 20:44 Temperature Pulse Rate 94 H Respiratory 38 H 37 H Rate Blood Pressure 135/80 O2 Sat by Pulse 100 Oximetry (%) 03/11/19 03/11/19 03/11/19 21:00 22:00 23:00 Temperature Pulse Rate 95 H 94 H 95 H Respiratory 39 H 38 H 36 H Rate Blood Pressure 130/79 141/83 136/82 O2 Sat by Pulse Oximetry (%) 03/12/19 03/12/19 03/12/19 00:00 00:45 03:00 Temperature 101.2 F H 101.5 F H Pulse Rate 95 H 96 H Respiratory 36 H 35 H 34 H Rate Blood Pressure 132/78 141/77 O2 Sat by Pulse Oximetry (%) 03/12/19 03/12/19 03/12/19 04:20 05:15 06:00 Temperature 101.8 F H Pulse Rate 95 H Respiratory 31 H 33 H Rate Blood Pressure 138/70 O2 Sat by Pulse Oximetry (%) 03/12/19 03/12/19 03/12/19 07:00 07:51 08:33 Temperature 101.0 F H Pulse Rate 94 H 107 H Respiratory 32 H 32 H Rate Blood Pressure 132/70 151/76 O2 Sat by Pulse Oximetry (%) 03/12/19 03/12/19 03/12/19 08:52 09:00 10:00 Temperature 101.1 F H Pulse Rate 109 H 86 Respiratory 20 31 H Rate Blood Pressure 156/80 121/71 O2 Sat by Pulse Oximetry (%) 03/12/19 03/12/19 03/12/19 11:00 12:00 12:40 Temperature 99.8 F H Pulse Rate 86 84 Respiratory 30 H 32 H 32 H Rate Blood Pressure 121/71 126/81 O2 Sat by Pulse Oximetry (%) GENERAL: Intubated, sedated. HEENT: PERRL, Oropharynx dry. LUNGS: Mechanically vented coarse breath sounds bilaterally. No wheezes, and no crackles. HEART: Regular rate and rhythm, normal S1 and S2 without murmur, rub or gallop. ABDOMEN: Tense, non distended. Hypoactive bowel sounds X4 quadrants. No hepatomegaly or splenomegaly. EXTREMITIES: Cool extremities with mottling noted bilaterally. No peripheral edema. NEUROLOGICAL: Sedated. Laboratory Results - last 24 hr 03/11/19 03/11/19 03/11/19 13:10 13:10 17:07 WBC 24.1 H RBC 3.73 Hgb 11.9 Hct 35.9 MCV 96.3 H MCH 32.0 MCHC 33.2 RDW 13.0 Plt Count 35 L* D MPV 10.4 D Absolute Neuts (auto) 20.5 H Total Counted Neutrophils % 85.2 H Neutrophils % (Manual) 94.0 H Band Neutrophils % 0.0 Lymphocytes % 2.6 L D Lymphocytes % (Manual) 1.0 L D Monocytes % 3.0 L D Monocytes % (Manual) 3 L Eosinophils % 9.0 H Eosinophils % (Manual) 0.0 D Basophils % 0.2 Basophils % (Manual) 0.0 Myelocytes % (Man) 0 Promyelocytes % (Man) 0 Blast Cells % (Manual) 0 Nucleated RBC % 0 Metamyelocytes 0 Differential Comment Hypersegmented Neuts Plasma Cells Smudge Cells Other Cell Type Hypochromia Toxic Granulation Dohle Bodies Sophia Rods Platelet Estimate Decreased Platelet Comment Polychromasia Poikilocytosis Basophilic Stippling Anisocytosis Microcytosis Macrocytosis 1+ Spherocytes Siderocytes Sickle Cells Target Cells Tear Drop Cells Ovalocytes Stomatocytes Helmet Cells [place] Bodies [place] Rings Kirsty Cells Acanthocytes (Spur) Rouleaux Fragmented RBCs Schistocytes 1+ PT with INR INR PTT (Actin FS) Anticoagulation Therapy No Result Required. Puncture Site Right radial ABG pH 7.35 ABG pCO2 at Pt Temp 30.3 L ABG pO2 at Pt Temp 97.1 ABG HCO3 16.4 L ABG O2 Sat (Measured) 96.6 ABG O2 Content 15.5 ABG Base Excess -7.6 L Valeriano Test Positive O2 Delivery Device No Result Required. Oxygen Flow Rate No Result Required. Vent Mode No Result Required. Vent Rate No Result Required. Mechanical Rate No Result Required. Pressure Support Vent No Result Required. Sodium 140 Potassium 4.0 Chloride 104 Carbon Dioxide 19 L Anion Gap 17 H BUN 47.0 H Creatinine 2.6 H Est GFR (CKD-EPI)AfAm 20.24 Est GFR (CKD-EPI)NonAf 17.47 Random Glucose 86 Lactic Acid Calcium 6.1 L* Phosphorus Magnesium 2.1 Total Bilirubin AST ALT Alkaline Phosphatase Troponin I Total Protein Albumin 03/12/19 03/12/19 03/12/19 06:00 06:00 06:00 WBC 24.9 H RBC 3.66 Hgb 11.4 Hct 34.5 MCV 94.4 MCH 31.3 MCHC 33.2 RDW 12.8 Plt Count 34 L* MPV 11.2 H Absolute Neuts (auto) 22.4 H Total Counted Neutrophils % 90.2 H Neutrophils % (Manual) 89.6 H Band Neutrophils % 0.0 Lymphocytes % 1.7 L D Lymphocytes % (Manual) 6.2 L D Monocytes % 3.9 Monocytes % (Manual) 4 Eosinophils % 3.8 Eosinophils % (Manual) 0.0 Basophils % 0.4 Basophils % (Manual) 0.0 Myelocytes % (Man) 0 Promyelocytes % (Man) 0 Blast Cells % (Manual) 0 Nucleated RBC % 1 H Metamyelocytes 0 Differential Comment Hypersegmented Neuts Plasma Cells Smudge Cells Other Cell Type Hypochromia Toxic Granulation Dohle Bodies Sophia Rods Platelet Estimate Decreased Platelet Comment Polychromasia Poikilocytosis Basophilic Stippling Anisocytosis Microcytosis Macrocytosis 1+ Spherocytes Siderocytes Sickle Cells Target Cells Tear Drop Cells Ovalocytes Stomatocytes Helmet Cells [place] Bodies [place] Rings Kirsty Cells Acanthocytes (Spur) Rouleaux Fragmented RBCs Schistocytes PT with INR 22.70 H INR 1.91 H PTT (Actin FS) 34.1 Anticoagulation Therapy Puncture Site ABG pH ABG pCO2 at Pt Temp ABG pO2 at Pt Temp ABG HCO3 ABG O2 Sat (Measured) ABG O2 Content ABG Base Excess Valeriano Test O2 Delivery Device Oxygen Flow Rate Vent Mode Vent Rate Mechanical Rate Pressure Support Vent Sodium 140 Potassium 4.4 Chloride 105 Carbon Dioxide 18 L Anion Gap 18 H BUN 53.6 H Creatinine 3.6 H Est GFR (CKD-EPI)AfAm 13.66 Est GFR (CKD-EPI)NonAf 11.79 Random Glucose 25 L* Lactic Acid Calcium 6.4 L* Phosphorus 6.1 H Magnesium 2.1 Total Bilirubin 3.8 H AST 4819 H ALT 3430 H Alkaline Phosphatase 180 H Troponin I 9.16 H* Total Protein 4.1 L Albumin 2.0 L 03/12/19 03/12/19 03/12/19 06:00 06:00 10:30 WBC RBC Hgb Hct MCV MCH MCHC RDW Plt Count MPV Absolute Neuts (auto) Total Counted Cancelled Neutrophils % Neutrophils % (Manual) Cancelled Band Neutrophils % Cancelled Lymphocytes % Lymphocytes % (Manual) Cancelled Monocytes % Monocytes % (Manual) Cancelled Eosinophils % Eosinophils % (Manual) Cancelled Basophils % Basophils % (Manual) Cancelled Myelocytes % (Man) Cancelled Promyelocytes % (Man) Cancelled Blast Cells % (Manual) Cancelled Nucleated RBC % Cancelled Metamyelocytes Cancelled Differential Comment Cancelled Hypersegmented Neuts Cancelled Plasma Cells Cancelled Smudge Cells Cancelled Other Cell Type Cancelled Hypochromia Cancelled Toxic Granulation Cancelled Dohle Bodies Cancelled Sophia Rods Cancelled Platelet Estimate Cancelled Platelet Comment Cancelled Polychromasia Cancelled Poikilocytosis Cancelled Basophilic Stippling Cancelled Anisocytosis Cancelled Microcytosis Cancelled Macrocytosis Cancelled Spherocytes Cancelled Siderocytes Cancelled Sickle Cells Cancelled Target Cells Cancelled Tear Drop Cells Cancelled Ovalocytes Cancelled Stomatocytes Cancelled Helmet Cells Cancelled [place] Bodies Cancelled [place] Rings Cancelled [place] Cells Cancelled Acanthocytes (Spur) Cancelled Rouleaux Cancelled Fragmented RBCs Cancelled Schistocytes Cancelled PT with INR INR PTT (Actin FS) Anticoagulation Therapy No Result Required. Puncture Site Right radial ABG pH 7.37 ABG pCO2 at Pt Temp 27.6 L ABG pO2 at Pt Temp 122 H ABG HCO3 15.6 L ABG O2 Sat (Measured) 97.9 ABG O2 Content 14.6 ABG Base Excess -8.1 L Valeriano Test Positive O2 Delivery Device No Result Required. Oxygen Flow Rate Yes Vent Mode No Result Required. Vent Rate No Result Required. Mechanical Rate No Result Required. Pressure Support Vent No Result Required. Sodium Potassium Chloride Carbon Dioxide Anion Gap BUN Creatinine Est GFR (CKD-EPI)AfAm Est GFR (CKD-EPI)NonAf Random Glucose Lactic Acid 9.8 H* Calcium Phosphorus Magnesium Total Bilirubin AST ALT Alkaline Phosphatase Troponin I Total Protein Albumin Active Medications Generic Name Dose Route Start Last Admin Trade Name Freq PRN Reason Stop Dose Admin Chlorhexidine Gluconate 1 applic 03/10/19 22:00 03/11/19 21:15 Hibiclens For Decolonization - TP 1 applic HS JERRY Administration IV Flush 4 ml 03/10/19 17:16 Triple Lumen Flush IVPUSH PRN PRN Protocol Propofol 1,000,000 mcg in 100 mls @ 2.807 mls/hr 03/10/19 11:45 03/12/19 09: 42 Diprivan - IVPB 40 mcg/kg/min TITR JERRY 5.613 mls/hr Titration Protocol 20 MCG/KG/MIN Meropenem 1 gm/ Dextrose 100 mls @ 200 mls/hr 03/10/19 14:00 03/12/19 01:26 IVPB 200 mls/hr Q12H JERRY Administration Vasopressin 50 units/ Sodium 100 mls @ 4.8 mls/hr 03/10/19 19:15 03/11/19 23: 56 Chloride IVPB 0 units/hr TITR JERRY 0 mls/hr Titration Protocol 2.4 UNITS/HR Fentanyl 500 mcg/ Dextrose 100 mls @ 10 mls/hr 03/12/19 10:15 03/12/19 12:15 IVPB 50 mcg/hr TITR JERRY 10 mls/hr Administration Protocol 50 MCG/HR Sodium Chloride 1,000 mls @ 42 mls/hr 03/12/19 13:33 Normal Saline - IV ASDIR JERRY Metoprolol Tartrate 5 mg 03/12/19 10:13 Lopressor Injection - IVPUSH Q4H PRN HYPERTENSION Mupirocin 1 applic 03/10/19 10:00 03/12/19 09:43 Bactroban Ointment (For Decolonization) - NS 03/15/19 09:59 1 applic BID JERRY Administration Ondansetron HCl 4 mg 03/10/19 00:56 Zofran Injection IVPUSH Q6H PRN NAUSEA AND/OR VOMITING ASSESSMENT/PLAN: Patient is a 73 year old female with history of hyperlipidemia, admitted for obstructing renal stone,underwent emergent stent placement with postoperative PEA cardiac arrest. Acute Kidney Injury -Suggestive of acute tubular necrosis in setting of hypoperfusion secondary to cardiac arrest. Patient is making scant dark urine. -Patient has been weaned off pressors. Continue IV fluids. Maintain MAP > 65 -Continue supportive measures. Sepsis secondary to Gram Negative bacteremia -Right renal (obstructing) calculus s/p stent -Continue IV fluid hydration -Antibiotics per ID Disposition: We will continue to follow the patient. Thank you for this consultative opportunity. Visit type - Emergency Visit Emergency Visit: Yes ED Registration Date: 03/09/19 Care time: The patient presented to the Emergency Department on the above date and was hospitalized for further evaluation of their emergent condition. - New Patient This patient is new to me today: Yes Date on this admission: 03/12/19 - Critical Care Critical Care patient: Yes Total Critical Care Time (in minutes): 35 Critical Care Statement: The care of this patient involved high complexity decision making to prevent further life threatening deterioration of the patient 's condition and/or to evaluate & treat vital organ system(s) failure or risk of failure. ATTENDING PHYSICIAN STATEMENT I saw and evaluated the patient. I reviewed the resident's note and discussed the case with the resident. I agree with the resident's findings and plan as documented. SUBJECTIVE: OBJECTIVE: ASSESSMENT AND PLAN:
--- NOTE | 2019-03-12 15:11 | PN ---
Teaching Attending Note Name of Resident: Salvatore Acosta ATTENDING PHYSICIAN STATEMENT I saw and evaluated the patient. I reviewed the resident's note and discussed the case with the resident. I agree with the resident's findings and plan as documented. SUBJECTIVE: Patient seen and examined in ICU. Remains intubated and sedated. AC Mode of vent. Currently off pressors. Significant mottling and ischemia of both upper and lower extremities. Intake & Output 03/09/19 03/10/19 03/11/19 03/12/19 23:59 23:59 23:59 23:59 Intake Total 1700 7475 4510 2585 Output Total 500 550 145 50 Balance 1200 6925 4365 2535 Weight 125 lb 114 lb 6.719 oz 146 lb 151 lb 2 oz Last Vital Signs Temp Pulse Resp BP Pulse Ox 99.7 F H 87 23 H 136/84 100 03/12/19 14:00 03/12/19 14:00 03/12/19 14:00 03/12/19 14:00 03/11/19 20:44 Active Medications Chlorhexidine Gluconate (Hibiclens For Decolonization -) 1 applic TP HS JERRY Last Admin: 03/11/19 21:15 Dose: 1 applic IV Flush (Triple Lumen Flush) 4 ml IVPUSH PRN PRN PRN Reason: Protocol Propofol (Diprivan -) 1,000,000 mcg in 100 mls @ 2.807 mls/hr IVPB TITR JERRY; Protocol Last Titration: 03/12/19 12:00 Dose: 30 mcg/kg/min, 4.21 mls/hr Meropenem 1 gm/ Dextrose 100 mls @ 200 mls/hr IVPB Q12H JERRY Last Admin: 03/12/19 14:24 Dose: 200 mls/hr Vasopressin 50 units/ Sodium (Chloride) 100 mls @ 4.8 mls/hr IVPB TITR JERRY; Protocol Last Titration: 03/11/19 23:56 Dose: 0 units/hr, 0 mls/hr Fentanyl 500 mcg/ Dextrose 100 mls @ 10 mls/hr IVPB TITR JERRY; Protocol Last Admin: 03/12/19 12:15 Dose: 50 mcg/hr, 10 mls/hr Sodium Chloride (Normal Saline -) 1,000 mls @ 42 mls/hr IV ASDIR JERRY Last Admin: 03/12/19 14:25 Dose: 42 mls/hr Metoprolol Tartrate (Lopressor Injection -) 5 mg IVPUSH Q4H PRN PRN Reason: HYPERTENSION Mupirocin (Bactroban Ointment (For Decolonization) -) 1 applic NS BID [facility] Stop: 03/15/19 09:59 Last Admin: 03/12/19 09:43 Dose: 1 applic Ondansetron HCl (Zofran Injection) 4 mg IVPUSH Q6H PRN PRN Reason: NAUSEA AND/OR VOMITING Gen: Intubated and sedated, (+) Mottling HEENT: (-) Pallor Resp: Vented, scattered bilateral rhonchi, no wheeze CV: S1S2, RRR, no m/r/g noted Abd: Soft, NT, ND Ext: (+) mottling, (-) edema Neuro: sedated Laboratory Results - last 24 hr 03/11/19 03/11/19 03/12/19 13:10 17:07 06:00 WBC RBC Hgb Hct MCV MCH MCHC RDW Plt Count MPV Absolute Neuts (auto) Total Counted Neutrophils % Neutrophils % (Manual) Band Neutrophils % Lymphocytes % Lymphocytes % (Manual) Monocytes % Monocytes % (Manual) Eosinophils % Eosinophils % (Manual) Basophils % Basophils % (Manual) Myelocytes % (Man) Promyelocytes % (Man) Blast Cells % (Manual) Nucleated RBC % Metamyelocytes Differential Comment Hypersegmented Neuts Plasma Cells Smudge Cells Other Cell Type Hypochromia Toxic Granulation Dohle Bodies Sophia Rods Platelet Estimate Platelet Comment Polychromasia Poikilocytosis Basophilic Stippling Anisocytosis Microcytosis Macrocytosis Spherocytes Siderocytes Sickle Cells Target Cells Tear Drop Cells Ovalocytes Stomatocytes Helmet Cells Thomas-[place] Bodies [place] Rings Faxon Cells Acanthocytes (Spur) Rouleaux Fragmented RBCs Schistocytes PT with INR INR PTT (Actin FS) Anticoagulation Therapy No Result Required. Puncture Site Right radial ABG pH 7.35 ABG pCO2 at Pt Temp 30.3 L ABG pO2 at Pt Temp 97.1 ABG HCO3 16.4 L ABG O2 Sat (Measured) 96.6 ABG O2 Content 15.5 ABG Base Excess -7.6 L Valeriano Test Positive O2 Delivery Device No Result Required. Oxygen Flow Rate No Result Required. Vent Mode No Result Required. Vent Rate No Result Required. Mechanical Rate No Result Required. Pressure Support Vent No Result Required. Sodium 140 Potassium 4.4 Chloride 105 Carbon Dioxide 18 L Anion Gap 18 H BUN 53.6 H Creatinine 3.6 H Est GFR (CKD-EPI)AfAm 13.66 Est GFR (CKD-EPI)NonAf 11.79 Random Glucose 25 L* Lactic Acid Calcium 6.1 L* 6.4 L* Phosphorus 6.1 H Magnesium 2.1 Total Bilirubin 3.8 H AST 4819 H ALT 3430 H Alkaline Phosphatase 180 H Troponin I 9.16 H* Total Protein 4.1 L Albumin 2.0 L 03/12/19 03/12/19 03/12/19 06:00 06:00 06:00 WBC 24.9 H RBC 3.66 Hgb 11.4 Hct 34.5 MCV 94.4 MCH 31.3 MCHC 33.2 RDW 12.8 Plt Count 34 L* MPV 11.2 H Absolute Neuts (auto) 22.4 H Total Counted Neutrophils % 90.2 H Neutrophils % (Manual) 89.6 H Band Neutrophils % 0.0 Lymphocytes % 1.7 L D Lymphocytes % (Manual) 6.2 L D Monocytes % 3.9 Monocytes % (Manual) 4 Eosinophils % 3.8 Eosinophils % (Manual) 0.0 Basophils % 0.4 Basophils % (Manual) 0.0 Myelocytes % (Man) 0 Promyelocytes % (Man) 0 Blast Cells % (Manual) 0 Nucleated RBC % 1 H Metamyelocytes 0 Differential Comment Hypersegmented Neuts Plasma Cells Smudge Cells Other Cell Type Hypochromia Toxic Granulation Dohle Bodies Sophia Rods Platelet Estimate Decreased Platelet Comment Polychromasia Poikilocytosis Basophilic Stippling Anisocytosis Microcytosis Macrocytosis 1+ Spherocytes Siderocytes Sickle Cells Target Cells Tear Drop Cells Ovalocytes Stomatocytes Helmet Cells Thomas-[place]ell Bodies [place] Rings Faxon Cells Acanthocytes (Spur) Rouleaux Fragmented RBCs Schistocytes PT with INR 22.70 H INR 1.91 H PTT (Actin FS) 34.1 Anticoagulation Therapy Puncture Site ABG pH ABG pCO2 at Pt Temp ABG pO2 at Pt Temp ABG HCO3 ABG O2 Sat (Measured) ABG O2 Content ABG Base Excess Valeriano Test O2 Delivery Device Oxygen Flow Rate Vent Mode Vent Rate Mechanical Rate Pressure Support Vent Sodium Potassium Chloride Carbon Dioxide Anion Gap BUN Creatinine Est GFR (CKD-EPI)AfAm Est GFR (CKD-EPI)NonAf Random Glucose Lactic Acid 9.8 H* Calcium Phosphorus Magnesium Total Bilirubin AST ALT Alkaline Phosphatase Troponin I Total Protein Albumin 03/12/19 03/12/19 06:00 10:30 WBC RBC Hgb Hct MCV MCH MCHC RDW Plt Count MPV Absolute Neuts (auto) Total Counted Cancelled Neutrophils % Neutrophils % (Manual) Cancelled Band Neutrophils % Cancelled Lymphocytes % Lymphocytes % (Manual) Cancelled Monocytes % Monocytes % (Manual) Cancelled Eosinophils % Eosinophils % (Manual) Cancelled Basophils % Basophils % (Manual) Cancelled Myelocytes % (Man) Cancelled Promyelocytes % (Man) Cancelled Blast Cells % (Manual) Cancelled Nucleated RBC % Cancelled Metamyelocytes Cancelled Differential Comment Cancelled Hypersegmented Neuts Cancelled Plasma Cells Cancelled Smudge Cells Cancelled Other Cell Type Cancelled Hypochromia Cancelled Toxic Granulation Cancelled Dohle Bodies Cancelled Sophia Rods Cancelled Platelet Estimate Cancelled Platelet Comment Cancelled Polychromasia Cancelled Poikilocytosis Cancelled Basophilic Stippling Cancelled Anisocytosis Cancelled Microcytosis Cancelled Macrocytosis Cancelled Spherocytes Cancelled Siderocytes Cancelled Sickle Cells Cancelled Target Cells Cancelled Tear Drop Cells Cancelled Ovalocytes Cancelled Stomatocytes Cancelled Helmet Cells Cancelled Thomas-[place] Bodies Cancelled [place] Rings Cancelled Kirsty Cells Cancelled Acanthocytes (Spur) Cancelled Rouleaux Cancelled Fragmented RBCs Cancelled Schistocytes Cancelled PT with INR INR PTT (Actin FS) Anticoagulation Therapy No Result Required. Puncture Site Right radial ABG pH 7.37 ABG pCO2 at Pt Temp 27.6 L ABG pO2 at Pt Temp 122 H ABG HCO3 15.6 L ABG O2 Sat (Measured) 97.9 ABG O2 Content 14.6 ABG Base Excess -8.1 L Valeriano Test Positive O2 Delivery Device No Result Required. Oxygen Flow Rate Yes Vent Mode No Result Required. Vent Rate No Result Required. Mechanical Rate No Result Required. Pressure Support Vent No Result Required. Sodium Potassium Chloride Carbon Dioxide Anion Gap BUN Creatinine Est GFR (CKD-EPI)AfAm Est GFR (CKD-EPI)NonAf Random Glucose Lactic Acid Calcium Phosphorus Magnesium Total Bilirubin AST ALT Alkaline Phosphatase Troponin I Total Protein Albumin Problem List - Problems (1) UTI (urinary tract infection) Code(s): N39.0 - URINARY TRACT INFECTION, SITE NOT SPECIFIED (2) Bacteremia Code(s): R78.81 - BACTEREMIA (3) CORAL (acute kidney injury) Code(s): N17.9 - ACUTE KIDNEY FAILURE, UNSPECIFIED (4) Calculus of distal right ureter Code(s): N20.1 - CALCULUS OF URETER (5) Sepsis Code(s): A41.9 - SEPSIS, UNSPECIFIED ORGANISM Qualifiers: Sepsis type: sepsis due to unspecified organism Sepsis acute organ dysfunction status: unspecified Qualified Code(s): A41.9 - Sepsis, unspecified organism (6) Postoperative cardiac arrest following non-cardiac surgery Code(s): I97.121 - POSTPROCEDURAL CARDIAC ARREST FOLLOWING OTHER SURGERY (7) Septic shock Code(s): A41.9 - SEPSIS, UNSPECIFIED ORGANISM; R65.21 - SEVERE SEPSIS WITH SEPTIC SHOCK Assessment/Plan MOF GN Bacteremia due to source Right renal obstructive calculi S/P stent placement CORAL S/P PEA Arrest Coagulopathy due to MOF / Sepsis AC Mode of vent Decrease IVF Strict I & O Replete electrolytes Propofol for vent synchrony Can add Fentanyl ABX Per ID Normal transfusion thresholds Correct coagulopathy Start enteral feeds Overall prognosis appears grave. Dr Watson Critical care time spent in reviewing chart, evaluating patient and formulating plan - 36 minutes.
--- NOTE | 2019-03-12 16:13 | PN ---
Progress Note (short form) - Note Progress Note: off pressors sedated intubated, fi)2 down to 60% sedated Vital Signs Period Temp Pulse Resp BP Sys/Cote Pulse Ox Last 24 Hr 99.2 F-101.8 F 84-109 20-39 113-156/70-88 100 cor-rrr lungs decreased bs at base abd soft,nt ext hands are dusky, feet and knees are mottles CBC, BMP 03/12/19 06:00 03/12/19 06:00 cxray noted Microbiology 03/10/19 05:40 Blood - Peripheral Venous Blood Culture - Final Klebsiella Pneumoniae 03/10/19 05:10 Blood - Peripheral Venous Blood Culture - Final Klebsiella Pneumoniae 03/09/19 16:10 Urine - Urine Clean Catch Urine Culture - Final Klebsiella Pneumoniae 03/11/19 06:15 Blood - Peripheral Venous Blood Culture - Preliminary NO GROWTH OBTAINED AFTER 24 HOURS, INCUBATION TO CONTINUE FOR 4 DAYS. 03/11/19 06:15 Blood - Peripheral Venous Blood Culture - Preliminary NO GROWTH OBTAINED AFTER 24 HOURS, INCUBATION TO CONTINUE FOR 4 DAYS. 03/09/19 16:25 Blood - Peripheral Venous Blood Culture - Final Klebsiella Pneumoniae 03/09/19 16:25 Blood - Peripheral Venous Blood Culture - Final Klebsiella Pneumoniae Current Medications Chlorhexidine Gluconate (Hibiclens For Decolonization -) 1 applic TP HS JERRY Last Admin: 03/11/19 21:15 Dose: 1 applic IV Flush (Triple Lumen Flush) 4 ml IVPUSH PRN PRN PRN Reason: Protocol Propofol (Diprivan -) 1,000,000 mcg in 100 mls @ 2.807 mls/hr IVPB TITR JERRY; Protocol Last Titration: 03/12/19 12:00 Dose: 30 mcg/kg/min, 4.21 mls/hr Meropenem 1 gm/ Dextrose 100 mls @ 200 mls/hr IVPB Q12H JERRY Last Admin: 03/12/19 14:24 Dose: 200 mls/hr Vasopressin 50 units/ Sodium (Chloride) 100 mls @ 4.8 mls/hr IVPB TITR JERRY; Protocol Last Titration: 03/11/19 23:56 Dose: 0 units/hr, 0 mls/hr Fentanyl 500 mcg/ Dextrose 100 mls @ 10 mls/hr IVPB TITR JERRY; Protocol Last Admin: 03/12/19 12:15 Dose: 50 mcg/hr, 10 mls/hr Sodium Chloride (Normal Saline -) 1,000 mls @ 42 mls/hr IV ASDIR JERRY Last Admin: 03/12/19 14:25 Dose: 42 mls/hr Metoprolol Tartrate (Lopressor Injection -) 5 mg IVPUSH Q4H PRN PRN Reason: HYPERTENSION Mupirocin (Bactroban Ointment (For Decolonization) -) 1 applic NS BID [facility] Stop: 03/15/19 09:59 Last Admin: 03/12/19 09:43 Dose: 1 applic Ondansetron HCl (Zofran Injection) 4 mg IVPUSH Q6H PRN PRN Reason: NAUSEA AND/OR VOMITING a/p severe [id number]-t/p emergent cystoscopy with stone removal and stent placement s/p code renal failure thrombocytopenia secondary to sepsis +troponins- DE shock liver dilated CBD on CT scan noted-if lfts remain elevated would get liver ultrasound switch to ceftriaxone d/w ICU service
--- NOTE | 2019-03-12 17:54 | PN ---
Teaching Attending Note Name of Resident: Santino Metz (Nephrology) ATTENDING PHYSICIAN STATEMENT I saw and evaluated the patient. I reviewed the resident's note and discussed the case with the resident. I agree with the resident's findings and plan as documented. Renal Pt is a 73 year old female with pmhx fo hld who presented with abd pain. She was found to have a right side obstructing stone. She was taken for emergent stent placement. She suffered a cardiac arrest. She has sepsis with kleb pna. She is in the icu now intubated. pmhx hld pshx cystoscopy nkda family hx unable to obtain ros sedated Current Medications Generic Name Dose Route Start Last Admin Trade Name Freq PRN Reason Stop Dose Admin Chlorhexidine Gluconate 1 applic 03/10/19 22:00 03/11/19 21:15 Hibiclens For Decolonization - TP 1 applic HS JERRY Administration IV Flush 4 ml 03/10/19 17:16 Triple Lumen Flush IVPUSH PRN PRN Protocol Propofol 1,000,000 mcg in 100 mls @ 2.807 mls/hr 03/10/19 11:45 03/12/19 17: 27 Diprivan - IVPB Not Given TITR JERRY Protocol 20 MCG/KG/MIN Vasopressin 50 units/ Sodium 100 mls @ 4.8 mls/hr 03/10/19 19:15 03/11/19 23: 56 Chloride IVPB 0 units/hr TITR JERRY 0 mls/hr Titration Protocol 2.4 UNITS/HR Fentanyl 500 mcg/ Dextrose 100 mls @ 10 mls/hr 03/12/19 10:15 03/12/19 12:15 IVPB 50 mcg/hr TITR JERRY 10 mls/hr Administration Protocol 50 MCG/HR Sodium Chloride 1,000 mls @ 42 mls/hr 03/12/19 13:33 03/12/19 14:25 Normal Saline - IV 42 mls/hr ASDIR JERRY Administration Ceftriaxone Sodium 2 gm/ 100 mls @ 200 mls/hr 03/13/19 10:00 Dextrose IVPB DAILY JERRY Protocol Metoprolol Tartrate 5 mg 03/12/19 10:13 Lopressor Injection - IVPUSH Q4H PRN HYPERTENSION Mupirocin 1 applic 03/10/19 10:00 03/12/19 09:43 Bactroban Ointment (For Decolonization) - NS 03/15/19 09:59 1 applic BID JERRY Administration Ondansetron HCl 4 mg 03/10/19 00:56 Zofran Injection IVPUSH Q6H PRN NAUSEA AND/OR VOMITING Laboratory Tests 03/09/19 03/11/19 03/11/19 16:10 06:00 13:10 Plt Count 35 L* D ABG pH ABG pCO2 at Pt Temp ABG pO2 at Pt Temp ABG O2 Sat (Measured) Creatinine 2.4 H Urine Protein 1+ H Urine Blood 3+ H 03/11/19 03/11/19 03/12/19 13:10 17:07 06:00 Plt Count ABG pH 7.35 ABG pCO2 at Pt Temp 30.3 L ABG pO2 at Pt Temp 97.1 ABG O2 Sat (Measured) 96.6 Creatinine 2.6 H 3.6 H Urine Protein Urine Blood 03/12/19 06:00 Plt Count 34 L* ABG pH ABG pCO2 at Pt Temp ABG pO2 at Pt Temp ABG O2 Sat (Measured) Creatinine Urine Protein Urine Blood Microbiology 03/10/19 05:40 Blood - Peripheral Venous Blood Culture - Final Klebsiella Pneumoniae 03/10/19 05:10 Blood - Peripheral Venous Blood Culture - Final Klebsiella Pneumoniae 03/09/19 16:25 Blood - Peripheral Venous Blood Culture - Final Klebsiella Pneumoniae 03/09/19 16:25 Blood - Peripheral Venous Blood Culture - Final Klebsiella Pneumoniae 03/09/19 16:10 Urine - Urine Clean Catch Urine Culture - Final Klebsiella Pneumoniae 03/11/19 06:15 Blood - Peripheral Venous Blood Culture - Preliminary NO GROWTH OBTAINED AFTER 24 HOURS, INCUBATION TO CONTINUE FOR 4 DAYS. 03/11/19 06:15 Blood - Peripheral Venous Blood Culture - Preliminary NO GROWTH OBTAINED AFTER 24 HOURS, INCUBATION TO CONTINUE FOR 4 DAYS. Last Vital Signs Temp Pulse Resp BP Pulse Ox 99.7 F H 87 21 H 125/74 100 03/12/19 14:00 03/12/19 17:00 03/12/19 17:00 03/12/19 17:00 03/11/19 20:44 heent et tube cardio s1s2 pulm vent sounds gi rigid gu moran skin mottling of lower ext neuro lethargy Impression 1. CORAL 2. sepsis 3. multi organ system failure 4. resp failure on vent 5. thrombocytopenia 6. nephrolithiasis 7. lactic acidosis 8. s/p cardiac arrest Plan - cont supportive care - maintain bp with map 65 - monitor urine output - pt with multi organ system failure - vent support - cont to trend fixed capital clerk - likely ATN - check urine lytes and fixed capital clerk to calc fena - check renal ultrasound - prognosis poor
[2019-03-12 18:50] LABS: BLOOD UREA NITROGEN 54.5 mg/dL (7-18); CREATININE 3.8 mg/dL (0.55-1.3); POTASSIUM 4.3 mmol/L (3.5-5.1)
[2019-03-12 18:52] LABS: CALCIUM 6.3 mg/dL (8.5-10.1)
[2019-03-12] MEDS: CHLORHEXIDINE GLUCONATE 4% CLEANSER FOR DECOLONIZATION TP SCH (21:21)
[2019-03-12 23:35] LABS: BLOOD UREA NITROGEN 64.1 mg/dL (7-18); CREATININE 4.3 mg/dL (0.55-1.3); POTASSIUM 4.5 mmol/L (3.5-5.1)
[2019-03-12 23:37] LABS: CALCIUM 6.6 mg/dL (8.5-10.1)
[2019-03-12] MEDS ORDERED: DEXTROSE 50%-WATER - 25 GM/50 ML VIAL ONE (23:55)
[2019-03-13 06:25] VITALS: TEMP 100.4
[2019-03-13 07:01] LABS: BASO % 0.3 % (0-2.0); EOS % 7.5 % (0-4.5); HEMATOCRIT 35.9 % (32.4-45.2); HEMOGLOBIN 11.8 GM/dL (10.7-15.3); LYMPH % 4.3 % (8-40); MCH 31.8 pg (25.7-33.7); MCHC 32.9 g/dl (32.0-36.0); MEAN CELL VOLUME 96.8 fl (80-96); MEAN PLT VOLUME 9.5 fl (7.5-11.1); MONO % 3.9 % (3.8-10.2); PLATELET COUNT 57 K/MM3 (134-434); RBC 3.71 M/mm3 (3.60-5.2); RDW 13.1 % (11.6-15.6); WHITE BLOOD COUNT 25.1 K/mm3 (4.0-10.0)
[2019-03-13 07:29] LABS: INR 1.83 (0.83-1.09); PROTHROMBIN TIME (PATIENT) 21.7 SEC (9.7-13.0)
[2019-03-13 07:31] LABS: ACTIVATED PTT 35.3 SECONDS (25.2-36.5)
[2019-03-13 08:20] LABS: ALBUMIN 1.9 g/dl (3.4-5.0); BILIRUBIN,DIRECT 3.4 mg/dL (0.0-0.2); BILIRUBIN,TOTAL 4.2 mg/dL (0.2-1); BLOOD UREA NITROGEN 64.9 mg/dL (7-18); CREATININE 4.8 mg/dL (0.55-1.3); MAGNESIUM 2.4 mg/dL (1.8-2.4); PHOSPHOROUS 7.6 mg/dL (2.5-4.9); POTASSIUM 4.9 mmol/L (3.5-5.1); TOT PROT 4.1 g/dl (6.4-8.2)
[2019-03-13 08:34] LABS: ARTERIAL BLD GAS O2 SATURATION 78.7 % (95-98); ARTERIAL BLOOD GAS BASE EXCESS -12.8 meq/l (-2-2); ARTERIAL BLOOD GAS PCO2 37.5 mmHg (35-45); ARTERIAL BLOOD GAS PO2 55.9 mmHg (80-100)
[2019-03-13] MEDS ORDERED: EPINEPHrine 1:10,000 (P-F SYR) 1 MG/10 ML DISP.SYRIN ONE ×2 (08:35→09:01)
[2019-03-13 08:59] VITALS: BP 88/52; PULSE 55
[2019-03-13] MEDS ORDERED: AMIODARONE HCL 150 MG/3 ML VIAL ONE (09:10)
[2019-03-13 09:19] LABS: CALCIUM 6.7 mg/dL (8.5-10.1)
--- NOTE | 2019-03-13 09:22 | PN ---
Progress Note, Physician History of Present Illness: Sedated and intubated, remains on vasopressin gtt. - Current Medication List Current Medications: Active Medications Chlorhexidine Gluconate (Hibiclens For Decolonization -) 1 applic TP HS JERRY Last Admin: 03/12/19 21:21 Dose: 1 applic IV Flush (Triple Lumen Flush) 4 ml IVPUSH PRN PRN PRN Reason: Protocol Propofol (Diprivan -) 1,000,000 mcg in 100 mls @ 2.807 mls/hr IVPB TITR JERRY; Protocol Last Admin: 03/12/19 21:26 Dose: 30 mcg/kg/min, 4.21 mls/hr Vasopressin 50 units/ Sodium (Chloride) 100 mls @ 4.8 mls/hr IVPB TITR JERRY; Protocol Last Titration: 03/11/19 23:56 Dose: 0 units/hr, 0 mls/hr Fentanyl 500 mcg/ Dextrose 100 mls @ 10 mls/hr IVPB TITR JERRY; Protocol Last Admin: 03/12/19 21:26 Dose: 50 mcg/hr, 10 mls/hr Sodium Chloride (Normal Saline -) 1,000 mls @ 42 mls/hr IV ASDIR JERRY Last Admin: 03/12/19 14:25 Dose: 42 mls/hr Ceftriaxone Sodium 2 gm/ (Dextrose) 100 mls @ 200 mls/hr IVPB DAILY JERRY; Protocol Metoprolol Tartrate (Lopressor Injection -) 5 mg IVPUSH Q4H PRN PRN Reason: HYPERTENSION Mupirocin (Bactroban Ointment (For Decolonization) -) 1 applic NS BID JERRY Stop: 03/15/19 09:59 Last Admin: 03/12/19 21:21 Dose: 1 applic Ondansetron HCl (Zofran Injection) 4 mg IVPUSH Q6H PRN PRN Reason: NAUSEA AND/OR VOMITING - Objective Vital Signs: Vital Signs Temperature 100.4 F H 03/13/19 05:00 Pulse Rate 55 L 03/13/19 08:00 Respiratory Rate 27 H 03/13/19 08:00 Blood Pressure 88/52 L 03/13/19 08:00 O2 Sat by Pulse Oximetry (%) 100 03/11/19 20:44 Labs: CBC, BMP 03/13/19 06:00 03/13/19 06:00 INR, PTT INR 1.83 (0.83-1.09) H 03/13/19 06:00 Fibrinogen 280.0 mg/dL (238-498) 03/11/19 06:15 Problem List - Problems (1) Coagulopathy Code(s): D68.9 - COAGULATION DEFECT, UNSPECIFIED (2) CORAL (acute kidney injury) Code(s): N17.9 - ACUTE KIDNEY FAILURE, UNSPECIFIED (3) Postoperative cardiac arrest following non-cardiac surgery Code(s): I97.121 - POSTPROCEDURAL CARDIAC ARREST FOLLOWING OTHER SURGERY (4) Septic shock Code(s): A41.9 - SEPSIS, UNSPECIFIED ORGANISM; R65.21 - SEVERE SEPSIS WITH SEPTIC SHOCK (5) Thrombocytopenia Code(s): D69.6 - THROMBOCYTOPENIA, UNSPECIFIED (6) Sepsis with acute liver failure and septic shock Code(s): A41.9 - SEPSIS, UNSPECIFIED ORGANISM; R65.21 - SEVERE SEPSIS WITH SEPTIC SHOCK; K72.01 - ACUTE AND SUBACUTE HEPATIC FAILURE WITH COMA (7) Nephrolithiasis Code(s): N20.0 - CALCULUS OF KIDNEY Assessment/Plan 03/10/2010 Normal LVEF with abnl LV compliance, mild-0mod dilated RV with mild- mod decreased RV systolic fxn, mod TR, mild-mod AR, tr-mild MR, mild KS 1. s/p PEA arrest s/p emergent cystoscopy with stone removal and stent placement ; ROSC <3 minutes. 2. 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 Demand ischemia 4. Thrombyctopenia 5. Oliguric CORAL 6. Coagulaopathy 7. Shock liver P:1. Wean pressors to maintain MAP>65 mmHg, IVF 2. Abx per C&S 3. Trend trops to doument peak, f/u echo to assess ventricular and valve fxn, monitor Plt, coagulopathy, renal fxn and urine output, LFTs 1. Post PEA cardiac arrest s/p emergent cystoscopy with stone removal and stent placement: ROSC <3 minutes. 2. 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 Demand ischemia 4. Thrombocytopenia 5. Oliguric CORAL 6. Coagulaopathy 7. Shock liver 8. Respiratory failure on mechanical ventilation PLAN: 1. Current supportive care and vent management per Critical care team 2. Consider IV beta frank as BP is tolerated 3. Antibiotic coverage 4. Echocardiography report noted 5. Monitor renal function and electrolytes Chlorhexidine Gluconate (Hibiclens For Decolonization -) 1 applic TP HS JERRY Last Admin: 03/12/19 21:21 Dose: 1 applic IV Flush (Triple Lumen Flush) 4 ml IVPUSH PRN PRN PRN Reason: Protocol Propofol (Diprivan -) 1,000,000 mcg in 100 mls @ 2.807 mls/hr IVPB TITR JERRY; Protocol Last Admin: 03/12/19 21:26 Dose: 30 mcg/kg/min, 4.21 mls/hr Vasopressin 50 units/ Sodium (Chloride) 100 mls @ 4.8 mls/hr IVPB TITR JERRY; Protocol Last Titration: 03/11/19 23:56 Dose: 0 units/hr, 0 mls/hr Fentanyl 500 mcg/ Dextrose 100 mls @ 10 mls/hr IVPB TITR JERRY; Protocol Last Admin: 03/12/19 21:26 Dose: 50 mcg/hr, 10 mls/hr Sodium Chloride (Normal Saline -) 1,000 mls @ 42 mls/hr IV ASDIR JERRY Last Admin: 03/12/19 14:25 Dose: 42 mls/hr Ceftriaxone Sodium 2 gm/ (Dextrose) 100 mls @ 200 mls/hr IVPB DAILY JERRY; Protocol Metoprolol Tartrate (Lopressor Injection -) 5 mg IVPUSH Q4H PRN PRN Reason: HYPERTENSION Mupirocin (Bactroban Ointment (For Decolonization) -) 1 applic NS BID [facility] Stop: 03/15/19 09:59 Last Admin: 03/12/19 21:21 Dose: 1 applic Ondansetron HCl (Zofran Injection) 4 mg IVPUSH Q6H PRN PRN Reason: NAUSEA AND/OR VOMITING
--- NOTE | 2019-03-13 09:49 | PN ---
Progress Note (short form) - Note Progress Note: Patient noted to be in PEA at 0822. Code activated and ROSC obtained at 0827. Pulse lost again 0829, vtach noted at 0830 and shock administered. Patient regained and lost pulse several times following this with time of called at 0941. Please see code sheet for further details.
[2019-03-13] MEDS ORDERED: CEFTRIAXONE 2 GM in DEXTROSE 5%-WATER 100 ML IVPB SCH (10:00)
--- NOTE | 2019-03-13 11:33 | EKG ---
Test Reason : Blood Pressure : / mmHG Vent. Rate : 056 BPM Atrial Rate : 023 BPM P-R Int : 000 ms QRS Dur : 128 ms QT Int : 358 ms P-R-T Axes : 000 003 132 degrees QTc Int : 345 ms ATRIAL FIBRILLATION WITH SLOW VENTRICULAR RESPONSE WITH A COMPETING JUNCTIONAL PACEMAKER RIGHT BUNDLE BRANCH BLOCK POSSIBLE ANTEROSEPTAL INFARCT , AGE UNDETERMINED , POSSIBLY ACUTE ABNORMAL ECG WHEN COMPARED WITH ECG OF 10-MAR-2019 09:30, ATRIAL FIBRILLATION HAS REPLACED SINUS RHYTHM VENT. RATE HAS DECREASED BY 44 BPM RIGHT BUNDLE BRANCH BLOCK IS NOW PRESENT BORDERLINE CRITERIA FOR ANTEROSEPTAL INFARCT ARE NOW PRESENT EKG DONE DURING CODE Confirmed by DIANNE REYES, VIRGILIO ([id number]) on 03/13/2019 11:33:22 AM Referred By: Afshin EPPERSON Confirmed By:VIRGILIO DEAN MD
[2019-03-13 12:15] LABS: ANISOCYTOSIS 1+; MACROCYTOSIS 1+; PLATELET ESTIMATE DECREASED
--- NOTE | 2019-03-13 14:56 | PN ---
Teaching Attending Note Name of Resident: Leidy Bustamante ATTENDING PHYSICIAN STATEMENT I saw and evaluated the patient. I reviewed the resident's note and discussed the case with the resident. I agree with the resident's findings and plan as documented. SUBJECTIVE: Patient had PEA arrest at 0822 this morning. ACLS protocol was followed. Patient at 0941.
--- NOTE | 2019-03-13 17:26 | DS ---
Physical Exam: SUBJECTIVE: Patient coded this AM multiple times and then before technical publications writer' s physical exam. OBJECTIVE: Vital Signs Period Temp Pulse Resp BP Sys/Cote Pulse Ox Last 24 Hr 98.2 F-100.4 F 55-94 17-30 88-136/52-80 PHYSICAL EXAM unable to obtain LABS Laboratory Tests 03/09/19 03/09/19 03/09/19 16:10 16:25 16:25 WBC 18.2 H RBC Hgb 13.0 Hct 38.3 Plt Count 147 ABG pH ABG pCO2 at Pt Temp ABG pO2 at Pt Temp ABG HCO3 BUN Creatinine 1.6 H Random Glucose Lactic Acid 2.8 H* Calcium AST ALT Troponin I 03/10/19 03/10/19 03/10/19 05:10 05:10 05:10 WBC 19.3 H RBC Hgb 12.2 Hct 36.2 Plt Count 46 L D ABG pH ABG pCO2 at Pt Temp ABG pO2 at Pt Temp ABG HCO3 BUN Creatinine 1.7 H Random Glucose Lactic Acid 5.9 H* Calcium AST 314 H ALT 179 H Troponin I 1.28 H* 03/10/19 03/10/19 03/10/19 08:50 09:25 12:25 WBC RBC Hgb Hct Plt Count ABG pH 6.92 L* 7.00 L* ABG pCO2 at Pt Temp 33.3 L 28.1 L ABG pO2 at Pt Temp 92 110 H ABG HCO3 6.5 L 6.6 L BUN Creatinine Random Glucose Lactic Acid Calcium AST ALT Troponin I 5.82 H* 03/10/19 03/10/19 03/10/19 16:20 16:20 16:20 WBC 21.4 H RBC Hgb 11.3 Hct 36.2 Plt Count 58 L D ABG pH ABG pCO2 at Pt Temp ABG pO2 at Pt Temp ABG HCO3 BUN Creatinine 2.0 H Random Glucose Lactic Acid 15.0 H* Calcium AST 544 H ALT 268 H Troponin I 18.70 H* 03/10/19 03/10/19 03/11/19 16:30 20:20 06:00 WBC RBC Hgb Hct Plt Count ABG pH 6.96 L* 7.15 L* ABG pCO2 at Pt Temp 26.2 L ABG pO2 at Pt Temp 158 H ABG HCO3 5.6 L BUN Creatinine Random Glucose Lactic Acid Calcium 5.8 L* AST ALT Troponin I 03/11/19 03/11/19 03/11/19 06:15 06:15 06:20 WBC 23.6 H RBC 3.52 L Hgb 12.0 Hct 34.8 Plt Count ABG pH 7.31 L ABG pCO2 at Pt Temp 29.0 L ABG pO2 at Pt Temp ABG HCO3 14.2 L BUN Creatinine Random Glucose Lactic Acid 12.8 H* Calcium AST ALT Troponin I 03/11/19 03/11/19 03/12/19 13:10 13:10 06:00 WBC 24.1 H RBC Hgb Hct Plt Count 35 L* D ABG pH ABG pCO2 at Pt Temp ABG pO2 at Pt Temp ABG HCO3 BUN 47.0 H 53.6 H Creatinine 2.6 H 3.6 H Random Glucose 25 L* Lactic Acid Calcium 6.1 L* 6.4 L* AST 4819 H ALT 3430 H Troponin I 9.16 H* 03/12/19 03/12/19 03/12/19 06:00 06:00 10:30 WBC 24.9 H RBC Hgb Hct Plt Count 34 L* ABG pH 7.37 ABG pCO2 at Pt Temp 27.6 L ABG pO2 at Pt Temp 122 H ABG HCO3 15.6 L BUN Creatinine Random Glucose Lactic Acid 9.8 H* Calcium AST ALT Troponin I 03/12/19 16:15 WBC RBC Hgb Hct Plt Count ABG pH ABG pCO2 at Pt Temp ABG pO2 at Pt Temp ABG HCO3 BUN 54.5 H Creatinine 3.8 H Random Glucose 62 L Lactic Acid Calcium 6.3 L* AST ALT Troponin I 5.19 H* 03/09: U/S: CTAP addendum performed at later date demonstrated CBD dilation with a 1cm diam to the level of the ampulla. MRI/MRCP eval is suggested. Mild R hydro, CT eval suggested. GB contraction which may be on physio basis vs. 2/2 chronic cholecystitis. no evidence of cholelithiasis. there is no definite biliary duct dilation. 03/09 CXR: no acute pathology 03/09: CTAP: 3mm calculus in intramural segment of R UVJ with resultant mild hydro. allowing for partially obscuring intravascular contrast there is a probable 2mm nonobstructing R renal lower pole calculus. no pneumo peritoneum. CBD is dilated to the level of 1cm diameter. no gross intraductal calculus is identified in the limitations of the CT> this latter finding could not be definitely appreciated on the submitted ultrasound study performed earlier the same date on basis of technical basis. 03/10: CXR: ETT inserted well above brendan. NGT and tip is above the GE junction. new bibasilar pleural effusions with atelectasis or infiltrates present. prominent mediastinum and sclerotic knob 03/10: CXR: bilateral pulmonary changes have diminished, ETT, NGT remain in place, new L jugular line. no pneumothorax. 03/11: CXR: increased b/l pulmonary changes 03/12: CXR: persistent b/l changes, ETT slightly retracted from previous on 03/13: CXR: worse, progressive b/l pleural changes. Echo revealed normal EF, mild to moderate aortic and mitral regurg HOSPITAL COURSE: Date of Admission:03/09/19 Date of Discharge: 03/13/19 71 yo woman with no past medical history who presented w/ RLQ pain found to have an obstructing renal calculus c/b GN bacteremia 2/2 UTI s/p right sided ureteral stent placement transferred to the ICU post op for continued care. She initially presented to the ED w/ right sided flank pain and fevers. CTAP showed mm R UVJ stone with hydronephrosis. She was hypotensive requiring IV fluids for BP support. Labs showed leukocytosis w/ bandemia (wbc 18, 16% bands) , CORAL (SCr 1.6) w/ lactic acid of 2.8->4.3. Cultures sent and blood cultures returned positive for GNR. She received ceftriaxone and zosyn and vanco for broad coverage. Urology was consulted and she was taken to the OR for emergent right ureteral stent placement. She required addition IVF (~2liters) in the OR for hypotension prompting transfer to ICU for management of sepsis. Pt was subsequently admitted to the ICU, with the following problems addressed: #Neuro - during course, pt was intubated, sedated. - placed on Fentanyl and Propofol for sedation #Cardio - S/p PEA arrest 03/10, ROSC obtained after one round of Epi - development of peripheral cyanosis likely 2/2 pressor use vs sepsis - arterial line discontinued on 03/11 - initially on pressors - given through L IJ line, which were later discontinued - with elevated troponemia - received Lopressor 5mg Q4hr PRN for tachycardia - Echo revealed normal EF, mild to moderate aortic and mitral regurg #Pulm - Intubated, placed on AC mode - CXR 's continued to show worsening b/l pleural changes #Renal - s/p stent placement, CORAL, gross hematuria - Renal function worsened, patient was without adequate UO - gentle hydrated with IVF #GI - LFT derangements were noted in setting of hypoperfusion, sepsis, MOF - hepatotoxic medications were avoided #Heme/Onc - developed coagulopathy 2/2 multiorgan failure/ sepsis - Vitamin K 10, FFP x2 given on 03/11 #ID - GNR bacteremia, was placed on broad spectrum abx - Meropenem was discontinued - Switched to ceftriaxone - Blood cultures growing Klebsiella Patient was noted to be in PEA at 0822 on 03/13. Code 99 was activated and ROSC was obtained at 0827. Pulse lost again 0829, vtach noted at 0830 and shock administered. Patient regained and lost pulse several times following this with time and called at 0941. Minutes to complete discharge: 55 Discharge Summary Problems reviewed: Yes Reason For Visit: SEPSIS,ABDOMINLA PAIN Condition: Guarded - Instructions Disposition: - Home Medications Comprehensive Discharge Medication List: Ambulatory Orders Non-Formulary 1 tab PO HS 05/22/16 Oxymetazoline 0.05% Nasal Soln [Afrin -] 1 spray NS BID #1 spraybtl 05/22/16 This patient is new to me today: Yes Date on this admission: 03/13/19 Emergency Visit: No Critical Care patient: Yes Total Critical Care Time (in minutes): 55 Critical Care Statement: The care of this patient involved high complexity decision making to prevent further life threatening deterioration of the patient 's condition and/or to evaluate & treat vital organ system(s) failure or risk of failure. - Discharge Referral Referred to [facility] No
== END 2019-03-13 09:41 | disposition expired | DRG 853 ==
LOC: JER 14:43 → JERBED 18:48 → JICU 03-10 01:46
PROVIDERS: ADMIT Internal Medicine; ATTEND Internal Medicine
PROC: 0TC68ZZ Extirpation of Matter from Right Ureter, Via Natural or Artificial Opening Endoscopic (ICD-10-PCS; 2019-03-09)
PROC: 0T768DZ Dilation of Right Ureter with Intraluminal Device, Via Natural or Artificial Opening Endoscopic (ICD-10-PCS; 2019-03-09)
PROC: B513ZZA Fluoroscopy of Right Jugular Veins, Guidance (ICD-10-PCS; 2019-03-09)
PROC: 03HY32Z Insertion of Monitoring Device into Upper Artery, Percutaneous Approach (ICD-10-PCS; 2019-03-09)
PROC: 4A133B1 Monitoring of Arterial Pressure, Peripheral, Percutaneous Approach (ICD-10-PCS; 2019-03-09)
PROC: 4A133J1 Monitoring of Arterial Pulse, Peripheral, Percutaneous Approach (ICD-10-PCS; 2019-03-09)
PROC: BT1BZZZ Fluoroscopy of Bladder and Urethra (ICD-10-PCS; 2019-03-09)
PROC: 0BH17EZ Insertion of Endotracheal Airway into Trachea, Via Natural or Artificial Opening (ICD-10-PCS; 2019-03-09)
PROC: 5A1945Z Respiratory Ventilation, 24-96 Consecutive Hours (ICD-10-PCS; 2019-03-09)
PROC: 05HM33Z Insertion of Infusion Device into Right Internal Jugular Vein, Percutaneous Approach (ICD-10-PCS; principal; 2019-03-09 11:00)
DX: A41.50 Gram-negative sepsis, unspecified (principal); K72.00 Acute and subacute hepatic failure without coma; J96.01 Acute respiratory failure with hypoxia; I21.9 Acute myocardial infarction, unspecified; E87.2 Acidosis; N39.0 Urinary tract infection, site not specified; N13.6 Pyonephrosis; N17.9 Acute kidney failure, unspecified; I97.121 Postprocedural cardiac arrest following other surgery; I24.8 Other forms of acute ischemic heart disease; D68.9 Coagulation defect, unspecified; N20.1 Calculus of ureter; R65.20 Severe sepsis without septic shock; R50.9 Fever, unspecified; E87.6 Hypokalemia; I95.9 Hypotension, unspecified; B96.1 Klebsiella pneumoniae [K. pneumoniae] as the cause of diseases classified elsewhere; R00.0 Tachycardia, unspecified; Y83.8 Other surgical procedures as the cause of abnormal reaction of the patient, or of later complication, without mention of misadventure at the time of the procedure; D69.6 Thrombocytopenia, unspecified; N20.0 Calculus of kidney; R31.0 Gross hematuria; I46.9 Cardiac arrest, cause unspecified; N13.9 Obstructive and reflux uropathy, unspecified
CPT/HCPCS: 31500; 36415; 36430; 36600; 71045-TC-FY; 74177-TC; 76000-TC-FY; 76705-TC; 80048; 80053; 80076; 81003; 82550; 82553; 82803; 83605; 83690; 83735; 84100; 84484; 85025; 85027; 85362; 85379; 85384; 85610; 85730; 86850; 86870; 86900; 86901; 86902; 87040; 87086; 87186; 93005; 93010; 93306-TC; 93970-TC; 94002; 94640; 94760; 99285-25; G0480; J0131; J7030; P9017; P9034; P9038